=== PATIENT | male | born 1970 | race Caucasian/White ===

== ENCOUNTER 2023-01-29 19:44 | Inpatient (IN) | payer MEDICAID, OTHER ==
[~2023-01-29] VITALS: Ht 177.8 cm; Wt 111.4 kg
[2023-01-29] MEDS ORDERED: NITROGLYCERIN 2% OINT 1GM PKG TD ONE (20:15)
[2023-01-29 20:29] LABS: Basophils # (auto) 0.1 10 ^3/uL (0-0.2); Basophils % (auto) 1.2 % (0.0-2.0); Eosinophils # (auto) 0.5 10 ^3/uL (0-0.8); Eosinophils % (auto) 4.1 % (0.0-7.0); Hematocrit 51.3 % (41.0-53.0); Hemoglobin 16.6 g/dL (13.5-17.5); Lymphocytes # (auto) 2.3 10 ^3/uL (0.4-5.4); Mean Corpuscular Hemoglobin 28.3 pg (28.0-32.0); Mean Corpuscular Hgb Conc. 32.3 g/dL (32.0-36.0); Mean Corpuscular Volume 87.7 fL (80.0-100.0); Monocytes # (auto) 1.1 10 ^3/uL (0-1.3); Neutrophils # (auto) 7.1 10 ^3/uL (1.6-8.6); Neutrophils % (auto) 63.7 % (37.0-80.0); Nucleated Red Blood Cells % 0.2 %; Red Blood Cells 5.86 10^6/uL (4.5-5.90); Red Cell Distribution Width 14.3 % (11.8-14.3); White Blood Cell 11.1 10^3/uL (4.4-10.8)
[2023-01-29] MEDS ORDERED: ASPirin-EC 81 mg tab PO ONE (20:30)
[2023-01-29 20:46] LABS: Partial Thromboplastin Time 33.9 SEC (24.5-34.5); Prothrombin Time 10.5 sec (9.3-11.8)
[2023-01-29 20:51] LABS: Alanine Aminotransferase 38 U/L (7-40); Albumin 4.3 g/dL (3.2-4.8); Alkaline Phosphatase 96 U/L (46-116); Anion Gap 5 (5-15); Aspartate Aminotransferase 20 U/L (13-40); BUN/Creatinine Ratio 14.3 (10.0-20.0); Blood Urea Nitrogen 13 mg/dL (9-23); Calcium 9.3 mg/dL (8.7-10.4); Carbon Dioxide 28 mmol/L (20-30); Chloride 104 mmol/L (98-107); Glucose 92 mg/dL (74-106); Magnesium 2.1 mg/dL (1.6-2.6); Potassium 4.1 mmol/L (3.5-5.1); Sodium 137 mmol/L (136-145)
[2023-01-29 20:52] LABS: Bilirubin, Total 0.3 mg/dL (0.2-1.0); Total Protein 6.5 g/dL (5.7-8.2)
[2023-01-29 21:13] LABS: Urine Bacteria FEW /hpf (None Seen); Urine Blood Negative /uL (Negative); Urine Clarity Clear (Clear); Urine Mucus FEW (None Seen); Urine Protein, UAD TRACE (Negative); Urine Specific Gravity 1.014 (1.001-1.035); Urine Urobilinogen Normal (Negative); Urine WBC 4 /hpf (0 - 3)
[2023-01-29 21:14] LABS: Urine Color STRAW (Yellow)
[2023-01-29] MEDS ORDERED: LABETALOL HCL 200 MG TAB PO ONE (21:15)
[2023-01-29] MEDS ORDERED: IOHEXOL 350 MG/ML 100ML IJ ONE (21:31)
[2023-01-29] MEDS ORDERED: DOCUSATE SOD 100 MG CAP PO PRN (22:30)
[2023-01-29] MEDS ORDERED: hydrALAZINE HCL 20 MG/ML VL IV PRN (22:30)
[2023-01-29] MEDS ORDERED: ONDANSETRON HCL 4 MG/2 ML VIAL IV PRN (22:30)
[2023-01-29] MEDS ORDERED: ACETAMINOPHEN 325 MG TAB PO PRN (22:30)
[2023-01-29] MEDS ORDERED: HYDROcodone-ACET 5/325MG TAB PO PRN (22:30)
[2023-01-29] MEDS ORDERED: cefTRIAXone 1GM/50ML D5W 50 ML IV ONE (22:30)
[2023-01-29] MEDS: SODIUM CHLORIDE 0.9% 1,000 ML IV SCH (23:12)
[2023-01-29] MEDS ORDERED: MORPHINE SULFATE INJ 2 MG/ml SYRG IV PRN (23:30)
[2023-01-29] MEDS ORDERED: NITROGLYCERIN 0.4 MG SL TAB SL PRN (23:30)
[2023-01-29 23:56] VITALS: PULSE 97; RESP 20; O2SAT 98
[2023-01-30 02:17] LABS: Basophils # (auto) 0.1 10 ^3/uL (0-0.2); Eosinophils # (auto) 0.6 10 ^3/uL (0-0.8); Eosinophils % (auto) 6.1 % (0.0-7.0); Hematocrit 49.5 % (41.0-53.0); Hemoglobin 15.7 g/dL (13.5-17.5); Lymphocytes # (auto) 2.4 10 ^3/uL (0.4-5.4); Lymphocytes % (auto) 25.8 % (10.0-50.0); Mean Corpuscular Hemoglobin 28.5 pg (28.0-32.0); Mean Corpuscular Hgb Conc. 31.7 g/dL (32.0-36.0); Mean Corpuscular Volume 89.7 fL (80.0-100.0); Monocytes % (auto) 10.7 % (0.0-12.0); Neutrophils # (auto) 5.2 10 ^3/uL (1.6-8.6); Neutrophils % (auto) 56.4 % (37.0-80.0); Nucleated Red Blood Cells % 0.1 %; Red Blood Cells 5.52 10^6/uL (4.5-5.90); White Blood Cell 9.3 10^3/uL (4.4-10.8)
[2023-01-30 02:34] LABS: Alanine Aminotransferase 34 U/L (7-40); Albumin 3.9 g/dL (3.2-4.8); Alkaline Phosphatase 77 U/L (46-116); Anion Gap 5 (5-15); Aspartate Aminotransferase 16 U/L (13-40); BUN/Creatinine Ratio 8.6 (10.0-20.0); Bilirubin, Total 0.3 mg/dL (0.2-1.0); Blood Urea Nitrogen 8 mg/dL (9-23); Carbon Dioxide 27 mmol/L (20-30); Chloride 104 mmol/L (98-107); Glucose 112 mg/dL (74-106); Potassium 4.2 mmol/L (3.5-5.1); Sodium 136 mmol/L (136-145); Total Protein 6.1 g/dL (5.7-8.2)
[2023-01-30 07:45] VITALS: PULSE 92; RESP 27; O2SAT 95
[2023-01-30] MEDS ORDERED: IOHEXOL 350 MG/ML 100ML IJ ONE (08:32)
[2023-01-30 08:56] LABS: Amphetamine Screen, Urine Pos (NEGATIVE)
[2023-01-30 08:57] LABS: Barbiturate Scree,Urine Neg (NEGATIVE); Benzodiazephine Screen, Urine Neg (NEGATIVE); Cocaine Screen, Urine Neg (NEGATIVE)
[2023-01-30 08:58] LABS: Cannabinoid Screen, Urine Neg (NEGATIVE); Opiate Scree,Urine Neg (NEGATIVE); Phencyclidine Screen, Urine Pos (NEGATIVE)
[2023-01-30] MEDS ORDERED: LORazepam 2MG/ML-1ML VIAL IV PRN ×2 (10:15→13:15)
[2023-01-30] MEDS: LISINOPRIL 5 MG TAB PO SCH (11:44)
[2023-01-30] MEDS: CARVEDILOL 3.125 MG TAB PO SCH ×2 (11:45→21:14)
[2023-01-30] MEDS: ASPirin 81 mg TAB PO SCH (11:45)
[2023-01-30 11:59] LABS: Triglycerides 85 mg/dL (< 150)
[2023-01-30 12:00] LABS: LDL Cholesterol 101 mg/dL (< 100)
[2023-01-30 12:01] LABS: Cholesterol 141 mg/dL (< 200); HDL Cholesterol 41 mg/dL (40-59)
[2023-01-30] MEDS: NICOTINE 21MG/24 HR TOPICAL PATCH TD SCH (12:35)
[2023-01-30] MEDS: LIDOCAINE 5% TOPICAL PATCH TOP SCH (12:35)
[2023-01-30] MEDS ORDERED: cloNIDine HCL 0.1 MG TAB PO PRN (13:15)
[2023-01-30 16:00] VITALS: BP 123/76; PULSE 89; RESP 18; TEMP 98.2; O2SAT 96
[2023-01-30] MEDS: SODIUM CHLORIDE 0.9% 1,000 ML IV SCH (16:46)
[2023-01-30] MEDS ORDERED: LISI20TA56 PO (17:04)
[2023-01-30] MEDS ORDERED: ASPI-543 PO (17:04)
[2023-01-30 20:00] VITALS: PULSE 102
[2023-01-30] MEDS ORDERED: cefTRIAXone 1GM/50ML D5W 50 ML IV SCH (21:00)
[2023-01-30 22:00] VITALS: BP 134/82; PULSE 92; RESP 18; TEMP 97.9; O2SAT 96
[2023-01-30] MEDS ORDERED: ATORVASTATIN 20 MG TAB PO SCH ×2 (22:00)
[2023-01-31 05:00] VITALS: BP 95/39; PULSE 70; RESP 16; TEMP 97.7; O2SAT 100
[2023-01-31 06:21] LABS: Basophils # (auto) 0.1 10 ^3/uL (0-0.2); Basophils % (auto) 1.2 % (0.0-2.0); Eosinophils # (auto) 0.6 10 ^3/uL (0-0.8); Eosinophils % (auto) 6.4 % (0.0-7.0); Hematocrit 51.8 % (41.0-53.0); Hemoglobin 16.7 g/dL (13.5-17.5); Lymphocytes # (auto) 2.8 10 ^3/uL (0.4-5.4); Lymphocytes % (auto) 31.1 % (10.0-50.0); Mean Corpuscular Hemoglobin 28.4 pg (28.0-32.0); Mean Corpuscular Hgb Conc. 32.2 g/dL (32.0-36.0); Mean Corpuscular Volume 88.3 fL (80.0-100.0); Monocytes # (auto) 1.1 10 ^3/uL (0-1.3); Monocytes % (auto) 12.1 % (0.0-12.0); Neutrophils # (auto) 4.4 10 ^3/uL (1.6-8.6); Neutrophils % (auto) 49.2 % (37.0-80.0); Nucleated Red Blood Cells % 0.1 %; Red Blood Cells 5.87 10^6/uL (4.5-5.90); Red Cell Distribution Width 14.8 % (11.8-14.3); White Blood Cell 8.9 10^3/uL (4.4-10.8)
[2023-01-31 06:26] LABS: Anion Gap 5 (5-15); Carbon Dioxide 30 mmol/L (20-30); Chloride 104 mmol/L (98-107); Potassium 4.6 mmol/L (3.5-5.1); Sodium 139 mmol/L (136-145)
[2023-01-31 06:27] LABS: Calcium 9.6 mg/dL (8.5-10.1)
[2023-01-31 06:32] LABS: BUN/Creatinine Ratio 11.3 (10.0-20.0); Blood Urea Nitrogen 12 mg/dL (9-23); Glucose 99 mg/dL (74-106)
[2023-01-31 08:00] VITALS: PULSE 80
[2023-01-31] MEDS ORDERED: ATOR20TA50 PO (08:46)
[2023-01-31] MEDS ORDERED: LIDO5DIS21 TOP (08:46)
[2023-01-31] MEDS ORDERED: CEPH500C PO (08:47)
[2023-01-31 09:00] VITALS: BP 127/99; PULSE 88; RESP 17; TEMP 97.7; O2SAT 98
[2023-01-31] MEDS: CARVEDILOL 3.125 MG TAB PO SCH (09:48)
[2023-01-31] MEDS: LISINOPRIL 5 MG TAB PO SCH (09:48)
[2023-01-31] MEDS: ASPirin 81 mg TAB PO SCH (09:48)
[2023-01-31] MEDS: NICOTINE 21MG/24 HR TOPICAL PATCH TD SCH (09:49)
[2023-01-31] MEDS: LIDOCAINE 5% TOPICAL PATCH TOP SCH (09:49)
[2023-01-31] MEDS ORDERED: ENOXAPARIN SOD 40 MG/0.4 ML SYRINGE SC SCH (10:00)
== END 2023-01-31 09:35 | disposition left against medical advice (07) | DRG 203 ==
LOC: ER 19:44 → TELE 23:39 → TELE-CENTR 01-30 13:38
PROVIDERS: ADMIT Internal Medicine; ATTEND Internal Medicine
DX: M94.0 Chondrocostal junction syndrome [Tietze] (principal); E66.9 Obesity, unspecified; I16.0 Hypertensive urgency; J45.909 Unspecified asthma, uncomplicated; N39.0 Urinary tract infection, site not specified; Z53.29 Procedure and treatment not carried out because of patient's decision for other reasons; F17.210 Nicotine dependence, cigarettes, uncomplicated; T43.625A Adverse effect of amphetamines, initial encounter; Z68.35 Body mass index [BMI] 35.0-35.9, adult; Z79.82 Long term (current) use of aspirin; Z82.49 Family history of ischemic heart disease and other diseases of the circulatory system; Z86.718 Personal history of other venous thrombosis and embolism; Z86.73 Personal history of transient ischemic attack (TIA), and cerebral infarction without residual deficits; Y92.89 Other specified places as the place of occurrence of the external cause; Z71.6 Tobacco abuse counseling
CPT/HCPCS: 36415; 70450; 70496; 70551; 71045; 71275; 80048; 80053; 80061; 80307; 81001; 82607; 83690; 83735; 83880; 84443; 84484; 85025; 85379; 85610; 85730; 93005; 93970; 95819; 96365; G0378; J0696

== ENCOUNTER 2023-08-05 07:58 | Emergency (ER) | payer MEDICAID ==
[~2023-08-05] VITALS: Ht 177.8 cm; Wt 100.0 kg
[~2023-08-05 07:58] MED LIST: ASPI-543 PO; ATOR20TA50 PO; CEPH500C PO; LIDO5DIS21 TOP; LISI20TA56 PO
[2023-08-05] MEDS: methylPREDNISolone SOD SUCC 125 MG/2 ML VL IV ONE (08:26)
[2023-08-05] MEDS: ALBUTEROL SULF 2.5 MG/0.5ML(0.5%) NEB SOLN NEB ONE (08:27)
[2023-08-05 08:30] VITALS: PULSE 71; RESP 12; O2SAT 91
[2023-08-05 08:31] VITALS: BP 149/88; PULSE 103; RESP 19; O2SAT 100
[2023-08-05 09:02] LABS: Basophils # (auto) 0.1 10 ^3/uL (0-0.2); Basophils % (auto) 0.6 % (0.0-2.0); Eosinophils # (auto) 0.4 10 ^3/uL (0-0.8); Eosinophils % (auto) 3.1 % (0.0-7.0); Hemoglobin 15.9 g/dL (13.5-17.5); Lymphocytes # (auto) 1.3 10 ^3/uL (0.4-5.4); Lymphocytes % (auto) 10.3 % (10.0-50.0); Mean Corpuscular Hemoglobin 28.5 pg (28.0-32.0); Mean Corpuscular Volume 86.2 fL (80.0-100.0); Monocytes % (auto) 8.2 % (0.0-12.0); Neutrophils # (auto) 9.8 10 ^3/uL (1.6-8.6); Neutrophils % (auto) 77.8 % (37.0-80.0); Nucleated Red Blood Cells % 0.1 %; Red Blood Cells 5.57 10^6/uL (4.5-5.90); Red Cell Distribution Width 16.9 % (11.8-14.3); White Blood Cell 12.6 10^3/uL (4.4-10.8)
[2023-08-05 09:17] LABS: Chloride 111 mmol/L (98-107); Sodium 141 mmol/L (136-145)
[2023-08-05 09:18] LABS: Anion Gap 3 (5-15); Carbon Dioxide 27 mmol/L (20-30)
[2023-08-05 09:19] LABS: Calcium 9.4 mg/dL (8.5-10.1)
[2023-08-05 09:24] LABS: BUN/Creatinine Ratio 17.2 (10.0-20.0); Blood Urea Nitrogen 16 mg/dL (9-23); Glucose 134 mg/dL (74-106)
[2023-08-05] MEDS ORDERED: ALBUTEROL SULF 2.5 MG/0.5ML(0.5%) NEB SOLN NEB PRN (09:45)
[2023-08-05] MEDS ORDERED: ACETAMINOPHEN 325 MG TAB PO PRN (09:45)
[2023-08-05] MEDS ORDERED: IPRATROPIUM BROM 0.5 MG/2.5ML INH SOL NEB PRN (09:45)
[2023-08-05] MEDS ORDERED: ONDANSETRON HCL 4 MG/2 ML VIAL IV PRN (09:45)
[2023-08-05] MEDS ORDERED: ASPirin 81 mg TAB PO SCH (10:00)
[2023-08-05] MEDS ORDERED: methylPREDNISolone SOD SUCC 40 MG/ML VL IV SCH (10:00)
[2023-08-05] MEDS ORDERED: LISINOPRIL 20 MG TAB PO SCH (10:00)
[2023-08-05] MEDS ORDERED: ATORVASTATIN 20 MG TAB PO SCH (22:00)
== END 2023-08-05 09:42 | disposition left against medical advice (07) ==
LOC: ER 07:58 → EDBD 07:58 → ER 09:42
DX: J44.1 Chronic obstructive pulmonary disease with (acute) exacerbation (principal); R06.03 Acute respiratory distress; I10 Essential (primary) hypertension; J45.909 Unspecified asthma, uncomplicated; Z86.73 Personal history of transient ischemic attack (TIA), and cerebral infarction without residual deficits; Z98.890 Other specified postprocedural states; Z87.891 Personal history of nicotine dependence
CPT/HCPCS: 36415; 71045; 80048; 84484; 85025; 85379; 94640; 96374; 99284; J2919

== ENCOUNTER 2024-01-31 18:33 | Inpatient (IN) | payer MEDICAID, OTHER ==
[~2024-01-31] VITALS: Ht 177.8 cm; Wt 94.3 kg
[2024-01-31] MEDS: SUCCINYLCHOLINE CHLORIDE 20 MG/ML 10ML VIAL IV ONE ×2 (18:30→18:38)
[2024-01-31] MEDS: ETOMIDATE (2MG/ML) 20ML VIAL IV ONE ×2 (18:30→18:38)
[2024-01-31] MEDS: MAGNESIUM SULFATE 1GM/100ML 200 ML IV ONE (18:31)
[2024-01-31] MEDS: methylPREDNISolone SOD SUCC 125 MG/2 ML VL IV ONE (18:33)
[2024-01-31] MEDS: methylPREDNISolone SOD SUCC 125 MG/2 ML VL ONE (18:34)
[2024-01-31] MEDS: MIDAZOLAM DRIP 50 mg/50mL 50 ML IV ONE (18:42)
[2024-01-31] MEDS: PROPOFOL 100 ML IV ONE (18:42)
[2024-01-31] MEDS: ALBUTEROL SULF 2.5 MG/0.5ML(0.5%) NEB SOLN HHN ONE (18:50)
[2024-01-31] MEDS: IPRATROPIUM BROM 0.5 MG/2.5ML INH SOL HHN ONE (18:50)
[2024-01-31] MEDS: PROPOFOL 100 ML IV SCH (19:00)
[2024-01-31] MEDS: MIDAZOLAM DRIP 50 mg/50mL 50 ML IV SCH (19:00)
[2024-01-31] MEDS: fentaNYL Drip 2500mCg/250mlNS 250 ML IV SCH (19:15)
[2024-01-31 19:30] VITALS: PULSE 148; RESP 36; O2SAT 96
--- NOTE | 2024-01-31 19:38 | ED.PDOC ---
History of Present Illness HPI Comments 53 y/o M, with a Hx of asthma, is BIBA for c/o shortness of breath and wheezing, today. Per EMS report, patient called, endorsing on sudden and unprovoked asthma exacerbation onset unlike any he has had in the past, with no relief or improvement with at-home breathing Tx use. Patient was found on scene in re spiratory distress, with a SpO2 of 58%RA, blood pressure of 222/101, and tachycardic by EMS staff. En route, patient was placed on a NRB and then given a breathing Tx after initial failed attempt to place him on CPAP device, with SpO2 improving to 99%. Upon arrival to ED, patient is stated to still remain in respiratory distress by EMS staff and unable to provide additional information regarding his symptoms. At time of assessment, patient repeatedly stated "I cannot breathe" and unable to follow command. Patient has no reported chest pain, phlegm production, fever, nausea, vomiting, or other associated symptoms or modifies at this time. Chief Complaint: Shortness of Breath Time Seen by MD: 18:33 Primary Care Provider: FRED Reviewed Notes: Nurses Notes, Mulling Machine Operator Notes, Medications, Allergies Allergies: Coded Allergies: UNOBTAINABLE (Unverified , 01/31/24) SEVERLY SOB Information Source: Patient, Emergency Med Personnel Mode of Arrival: EMS Severity: Moderate Timing: Hours Duration: Since onset Prehospital treatment: 12 Lead EKG, Breathing Tx, Physical Meteorologist, C-Pap, Oxygen (NRB) Past Medical History PAST MEDICAL HISTORY: Asthma Surgical History: Unknown, Unobtainable Family History Family History: Unknown, Unobtainable Social History Smoker: Unknown, Unobtainable Alcohol: Unknown, Unobtainable Drugs: Unknown, Unobtainable Lives In: Home Constitutional: denies: chills, diaphoresis, fatigue, fever, malaise, sweats, weakness, others EENTM: denies: blurred vision, double vision, ear bleeding, ear discharge, ear drainage, ear pain, ear ringing, eye pain, eye redness, hearing loss, mouth pain, mouth swelling, nasal discharge, nose bleeding, nose congestion, nose pain, photophobia, tearing, throat pain, throat swelling, voice changes, others Respiratory: reports: shortness of breath, wheezing; denies: cough, hemoptysis, orthopnea, SOB at rest, SOB with excertion, stridor, others Cardiovascular: denies: chest pain, dizzy spells, diaphoresis, Dyspnea on exertion, edema, irregular heart beat, left arm pain, lightheadedness, palpitations, PND, syncope, others Gastrointestinal: denies: abdomen distended, abdominal pain, blood streaked bowels, constipated, diarrhea, dysphagia, difficulty swallowing, hematemesis, melena, nausea, poor appetite, poor fluid intake, rectal bleeding, rectal pain, vomiting, others Genitourinary: denies: burning, dysuria, flank pain, frequency, hematuria, incontinence, penile discharge, penile sore, pain, testicle pain, testicle swelling, urgency, others Neurological: denies: dizziness, fainting, headache, left sided numbness, left sided weakness, numbness, paresthesia, pre-existing deficit, right sided numbness, right sided weakness, seizure, speech problems, tingling, tremors, weakness, others Musculoskeletal: denies: back pain, gout, joint pain, joint swelling, muscle pain, muscle stiffness, neck pain, others Integumetry: denies: bruises, change in color, change in hair/nails, dryness, laceration, lesions, lumps, rash, wounds, others Allergic/Immunocompromised: denies: Difficulty Healing, Frequent Infections, Hives, Itching, others Hematologic/Lymphatic: denies: anemia, blood clots, easy bleeding, easy bruising, swollen glands, others Endocrine: denies: excessive hunger, excessive sweating, excessive thirst, excessive urination, flushing, intolerance to cold, intolerance to heat, unexplained weight gain, unexplained weight loss, others Psychiatric: denies: anxiety, bipolar disorder, depression, hopeless, panic disorder, schizophrenia, sleepless, suicidal, others All Other Systems: Reviewed and Negative Physical Exam General Appearance: Severe Distress HEENT: Normal ENT Inspection, Pharynx Normal, TMs Normal Neck: Full Range of Motion, Non-Tender, Normal, Normal Inspection Respiratory: Accessory Muscle Use, Chest Non-Tender, Decreased Breath Sounds, Respiratory Distress, Wheezing Cardiovascular: No Edema, No JVD, No Murmur, No Gallop, Tachycardia Breast Exam: Deferred Gastrointestinal: No Organomegaly, Non Tender, No Pulsatile Mass, Normal Bowel Sounds, Soft Genitalia: Deferred Pelvic: Deferred Rectal: Deferred Extremities: No calf tenderness, Normal capillary refill, No pedal edema Musculoskeletal : Apperance: Normal Neurologic: Alert, actuarial science teacher II-XII nml as Tested, Motor Weakness, Normal Affect, Normal Mood, No Sensory Deficits Cerebellar Function: Normal Reflexes: Normal Skin: Dry, Normal Color, Warm Lymphatic: No Adenopathy Was a procedure done? Was a procedure done?: Yes Sedation Sedation?: Yes Informed consent obtained: Yes Sedation start time: 18:33 Sedation end time: 18:48 Sedation total time: 15x minutes Intubation Indication: Respiratory Insufficiency Prep: Preoxygenation Pretreated with: Other (solumedrol iv push) Medicated with: Succinylcholine (100mg), Other (20mg Etomidate ) Intubation Approach: Orotracheal (7.5) Intubation size: cm (24cm at lip) Informed consent obtained: Yes Risks/benefits/alt described: Yes Differential Dx Considerations may include: asthma exacerbation, PNA, pleural effusion, bronchitis, URI, PE X-Ray, Labs, Meds, VS Vital Signs Date Time Temp Pulse Resp B/P (MAP) Pulse Ox O2 Delivery O2 Flow Rate FiO2 01/31/24 20:58 111/59 01/31/24 19:15 198/124 01/31/24 19:00 195/127 01/31/24 19:00 195/127 01/31/24 18:57 143 01/31/24 18:33 151 45 222/107 (145) 64 Lab Test 01/31/24 19:48 01/31/24 19:36 Range/Units Blood Gas Specimen Type Arterial Blood Gas Sample Site Left radial Blood Gas Patient Temperature 37.0 Arterial Blood Date Drawn [id number] Arterial Blood pH 7.152 *L 7.350-7.450 Arterial Blood Partial Pressure CO2 75.0 *H 35.0-48.0 mmHg Arterial Blood Partial Pressure O2 101.3 83.0-108.0 mmHg Arterial Blood HCO3 25.7 21.0-28.0 mmol/L Arterial Blood Oxygen Saturation 96.4 94.0-98.0 % Arterial Blood Base Excess -5.2 L -2.0-3.0 mmol/L Arterial Blood Oxyhemoglobin 94.3 94.0-98.0 % Arterial Blood Carboxyhemoglobin 1.7 H 0.5-1.5 % Arterial Blood Methemoglobin 0.5 0.0-1.5 % Davide Test Modified Blood Gas Total Hemoglobin 15.90 13.5-17.5 g/dL Blood Gas Set Respiration Rate 22.0 Blood Gas Modality Vent - ac FiO2 % 60.0 Blood Gas Tidal Volume 450.0 Blood Gas PEEP or CPAP 5.0 Blood Gas Critical Value Read Back Yes Blood Gas Notified Whom jesica [place] md Blood Gas Notified Time [id number] Blood Gas Notified By randell Wolff rrt White Blood Count 21.3 H 4.4-10.8 10^3/uL Red Blood Count 5.41 4.5-5.90 10^6/uL Hemoglobin 15.9 13.5-17.5 g/dL Hematocrit 48.3 41.0-53.0 % Mean Corpuscular Volume 89.4 80.0-100.0 fL Mean Corpuscular Hemoglobin 29.3 28.0-32.0 pg Mean Corpuscular Hemoglobin Concent 32.8 32.0-36.0 g/dL Red Cell Distribution Width 14.7 H 11.8-14.3 % Platelet Count 256 140-450 10^3/uL Mean Platelet Volume 8.9 6.9-10.8 fL Neutrophils (%) (Auto) 91.3 H 37.0-80.0 % Lymphocytes (%) (Auto) 3.1 L 10.0-50.0 % Monocytes (%) (Auto) 5.0 0.0-12.0 % Eosinophils (%) (Auto) 0.4 0.0-7.0 % Basophils (%) (Auto) 0.2 0.0-2.0 % Neutrophils # (Auto) 19.5 H 1.6-8.6 10 ^3/uL Lymphocytes # (Auto) 0.7 0.4-5.4 10 ^3/uL Monocytes # (Auto) 1.1 0-1.3 10 ^3/uL Eosinophils # (Auto) 0.1 0-0.8 10 ^3/uL Basophils # (Auto) 0 0-0.2 10 ^3/uL Nucleated Red Blood Cells 0.0 % B-Type Natriuretic Peptide Pending Current Medications Medications (Trade) Dose Ordered Sig/Compa Route Start Time Stop Time Status Last Admin Methylprednisolone Sodium Succinate (Solu Medrol) 125 mg ONCE ONCE IV 01/31/24 19:00 01/31/24 19:01 DC 01/31/24 18:33 Ipratropium [place] (Atrovent Medneb) 1 mg ONCE ONCE N 01/31/24 19:00 01/31/24 19:01 DC 01/31/24 18:50 Albuterol (Ventolin Medneb) 20 mg ONCE ONCE HHN 01/31/24 19:00 01/31/24 19:01 DC 01/31/24 18:50 Magnesium Sulfate/ Dextrose 100 ml @ 100 mls/hr Q1H IV 01/31/24 19:00 01/31/24 20:59 DC 01/31/24 20:41 Etomidate 20 mg ONCE ONCE IV 01/31/24 19:00 01/31/24 19:01 DC 01/31/24 18:38 Succinylcholine Chloride (Quelicin) 100 mg ONCE ONCE IV 01/31/24 19:00 01/31/24 19:01 DC 01/31/24 18:38 Propofol 100 ml @ 2.73 mls/hr Q24H IV 01/31/24 19:15 01/31/24 19:00 Midazolam HCl 50 ml @ 1 mls/hr Q24H IV 01/31/24 19:15 01/31/24 20:58 Fentanyl Citrate 250 ml @ 2.5 mls/hr Q24H IV 01/31/24 19:30 01/31/24 19:15 Acetaminophen (Ofirmev) 1,000 mg [id number] PRN IV 01/31/24 20:15 01/31/24 20:15 DC 01/31/24 20:10 The chest x-ray shows:IMPRESSION: Enteric tube is not well-visualized with the tip possibly slightly below the GE junction and the side port above the GE junction. Recommend advancing about 10 cm for more optimal positioning. Endotracheal tube is in satisfactory position. Mild pulmonary vascular congestion. The patient was given Solu-Medrol 125 mg IV push here in the emergency department's We initially attempted to place the patient on a BiPAP but the patient became somewhat hypoxic with significant accessory muscle use so we did go ahead and intubate the patient. The patient received an in-line treatment of albuterol and Atrovent The patient was placed on magnesium for the acute exacerbation of asthma follow ing intubation, the patient was placed on propofol and then Versed and fentanyl for sedation The patient also received acetaminophen 1000 mg IV piggyback Blood cultures x2 is being drawn The lactic acid level is pending The patient's CBC shows an elevated white blood cell count is 21.3 The rest of the CBC is within normal limits The chemistry panel is within normal limits The 1st ABG was done with a pH of 7.15/PO2 of 75 and a PO2 of 101.3 This is on 60% FiO2 so we are increase in the volume. At this time, the patient is being admitted to the ICU Critical care involved bedside management as well as interpretation of labs. We have been consulting with the field service tech Decision making also was involved and interpretation of the imaging. We will continue to monitor the patient's condition and the patient will be admitted to the ICU. At this time the admitting physician has arrived and is going to be placing a central line. Images Reviewed?: Images reviewed and evaluated by me Time of 1ST Reevaluation: 19:03 Reevaluation 1ST: Unchanged Patient Education/Counseling: Other (patient is intubated) Family Education/Counseling: No Family Present Departure 1 Departure Time of Disposition: 21:14 Impression: Primary Impression: Acute respiratory failure Qualified Codes: J96.01 - Acute respiratory failure with hypoxia Additional Impression: Pulmonary vascular congestion Disposition: ADMITTED INPATIENT Admit to: ICU Condition: Critical Critical Care Note Critical Care Time?: Yes (55 min-critical care time only) Stability Stability form required: Yes Unstable for transfer: ICU, CCU, PCU, GAVIN (Intensive VS monitoring), ED Physician Assesment (Clinical assesment) Heart Score Heart Score: Heart Score Response (Comments) Value History Moderate Suspicious 1 EKG N/A 0 Age 45-64 1 Risk Factors 1 or 2 risk factors 1 Troponin N/A 0 Total 3 I personally scribed for URBAN GRANDE MD ([email or web address]) on 01/31/24 at 19:38. Electronically submitted by Javy Guerra ([email or web address]). I personally scribed for URBAN GRANDE MD ([email or web address]) on 01/31/24 at 19:39. El ectronically submitted by Javy Geurra ([email or web address]). I personally scribed for URBAN GRANDE MD ([email or web address]) on 01/31/24 at 19:40. Electronically submitted by Javy Guerra ([email or web address]). URBAN GRANDE MD Jan 31, 2024 19:38
[2024-01-31 19:46] LABS: Basophils # (auto) 0 10 ^3/uL (0-0.2); Basophils % (auto) 0.2 % (0.0-2.0); Eosinophils # (auto) 0.1 10 ^3/uL (0-0.8); Eosinophils % (auto) 0.4 % (0.0-7.0); Hematocrit 48.3 % (41.0-53.0); Hemoglobin 15.9 g/dL (13.5-17.5); Lymphocytes # (auto) 0.7 10 ^3/uL (0.4-5.4); Lymphocytes % (auto) 3.1 % (10.0-50.0); Mean Corpuscular Hemoglobin 29.3 pg (28.0-32.0); Mean Corpuscular Hgb Conc. 32.8 g/dL (32.0-36.0); Mean Corpuscular Volume 89.4 fL (80.0-100.0); Monocytes # (auto) 1.1 10 ^3/uL (0-1.3); Neutrophils # (auto) 19.5 10 ^3/uL (1.6-8.6); Neutrophils % (auto) 91.3 % (37.0-80.0); Platelet Count (auto) 256 10^3/uL (140-450); Red Blood Cells 5.41 10^6/uL (4.5-5.90); Red Cell Distribution Width 14.7 % (11.8-14.3); White Blood Cell 21.3 10^3/uL (4.4-10.8)
[2024-01-31] MEDS: fentaNYL Drip 2500mCg/250mlNS 250 ML IV ONE (19:51)
--- NOTE | 2024-01-31 19:55 | DVH ---
CHEST RADIOGRAPH Indication: sob Technique: Single frontal view of the chest was obtained Comparison: None FINDINGS: Lines and Tubes: Endotracheal tube terminates about 5.6 cm above the augusto. The enteric tube is not well-visualized with the tip possibly slightly below the GE junction. Lungs: No focal consolidation. Mild diffuse interstitial prominence. Pleura: No effusion. No pneumothorax. Cardiomediastinal contours: Mild cardiomegaly Bones: No acute osseous abnormality. IMPRESSION: Enteric tube is not well-visualized with the tip possibly slightly below the GE junction and the side port above the GE junction. Recommend advancing about 10 cm for more optimal positioning. Endotracheal tube is in satisfactory position. Mild pulmonary vascular congestion.
[2024-01-31] MEDS ORDERED: ACETAMINOPHEN IV 1000 MG/100ML (10MG/ML) IV PRN (20:00)
[2024-01-31] MEDS: NOREPINEPHRINE 8 MG/250ML KIT 250 ML IV SCH (20:00)
[2024-01-31] MEDS: ACETAMINOPHEN IV 1000 MG/100ML (10MG/ML) IV PRN (20:10)
[2024-01-31] MEDS: FUROSEMIDE 40 MG/4 ML VIAL IV ONE (20:30)
[2024-01-31] MEDS: MAGNESIUM SULFATE 1GM/100ML 100 ML IV SCH (20:41)
[2024-01-31 20:59] LABS: Base Excess -5.2 mmol/L (-2.0-3.0)
[2024-01-31] MEDS ORDERED: NITROGLYCERIN 0.4 MG SL TAB SL PRN (21:00)
[2024-01-31] MEDS ORDERED: MORPHINE SULFATE INJ 2 MG/ml SYRG IV PRN (21:00)
--- NOTE | 2024-01-31 21:05 | DVHNC2 ---
[address] RESIDENT 01/31/24 2105: Procedure - INTERNAL JUGULAR CENTRAL LINE (Central Line) PLACEMENT PROCEDURE NOTE: Consent: No. The procedure was emergent, the patient was unable to provide consent, and a designee was not immediately available. The patient was intubated and ventilated. 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 Skin preparation completely dry: Yes IJ Line Location: Right IJ PROCEDURE SUMMARY: The [facility] Central Line Insertion Practices form was completed by an independent healthcare worker starting with the first handwash prior to starting sterile technique. A time out was performed. My hands were washed immediately prior to the procedure. I wore a surgical cap, mask with protective eyewear, full gown and sterile gloves throughout the procedure. The patient was placed in Trendelenburg position. RIGHT Neck region was prepped using chlorhexidine scrub and draped in sterile fashion using a full drape and sterile probe cover and sterile gel employed. The medial and lateral heads of the sternocleidomastoid muscle were identified as was the carotid pulse. The Internal Jugular vein was identified using the ultrasound. Anesthesia was achieved over the vein using 1% lidocaine. Using real-time out of plane guidance, the introducer needle was inserted into the Internal Jugular vein under direct ultrasound visualization. Venous blood was withdrawn. The syringe was removed and a guidewire was advanced into the introducer needle. The guidewire was visualized in the Internal Jugular Vein by ultrasound in both short and long axis. A small incision was made at the skin surface with a scalpel and the introducer needle was exchanged for a dilator over the guidewire. After appropriate dilation was obtained, the dilator was exchanged over the wire for the central venous catheter. The wire was removed and the catheter was sutured to skin. A sterile SorbaView shield was placed over the catheter at the insertion site with date and time of placement. The patient tolerated the procedure without any hemodynamic compromise. At time of procedure completion, all ports aspirated and flushed properly. Checked pleural slide with bedside ultrasound without signs of pneumothorax. Post-procedure chest x-ray is pending at this time. Estimated blood loss is 10 ml (approx). Performed by Guillermo Maddox MD at bedside. Follow up CXR bedside to confirmed a safe procedure. Supervised by the attending Dr. Reeves & Dr. Dave. LLOYD DAVE MD 02/01/24 0821: Date of Service: Jan 31, 2024 Billing Provider: LLOYD DAVE MD Common Visit Codes: PROCEDURE ONLY Procedure Codes: 17159-RFGCIJ NON-TUNNEL CV CATH GUILLERMO MADDOX Jan 31, 2024 21:05 LLOYD DAVE MD Feb 01, 2024 08:21
--- NOTE | 2024-01-31 21:05 | DVHHPRES ---
History of Present Illness Resident Creating Document: ROSY MADDOX RESIDENT History of Present Illness Mr. Farrell, 53-year-old male with a history of asthma was brought in by ambulance for shortness of breath and wheezing. He experienced a sudden, severe asthma exacerbation that did not improve with at-home treatments. EMS found him in respiratory distress with an SpO2 of 58% on room air, high blood pressure, and tachycardia. He was given oxygen and a breathing treatment, which improved his SpO2 to 99%. Upon arrival at the ED, he remained in respiratory distress, unable to provide additional information, and repeatedly stated, "I cannot breathe." He has no chest pain, phlegm, fever, nausea, or vomiting. Despite restrictive treatment patient could not maintain spontaneous breathing patient was intubated and admitted to the ICU for further evaluation. Peripheral access was not admitted so right-sided central IJ line was placed. Although could not take detailed history as patient was intubated and sedated by the time I started taking care of the patient. Pulmonary: Asthma Past Surgical History: None Family History: None Family History Limited Past Social History Limited social and personal history. Review of Systems Constitutional: No: Fever, Chills, Sweats, Weakness, Malaise, Other Eyes: No: Pain, Vision change, Conjunctivae inflammation, Eyelid inflammation, Other, Redness ENT: No: Ear pain, Ear discharge, Nose pain, Nose discharge, Nose congestion, Mouth pain, Mouth swelling, Throat pain, Throat swelling, Other Respiratory: Cough, Dry, Shortness of breath, SOB with excertion, Wheezing, Wheezing; No: Hemoptysis, Pleuritic Pain, Sputum, Other Cardiovascular: No: Chest Pain, Palpitations, Orthopnea, Paroxysmal Noc. Dyspnea, Edema, Lt Headedness, Other Gastrointestinal: No: Nausea, Vomiting, Abdominal Pain, Diarrhea, Constipation, Melena, Hematochezia, Other Genitourinary: No Dysuria, No Frequency, No Incontinence, No Hematuria, No Retention, No Other Musculoskeletal: No: other, neck pain, shoulder pain, arm pain, back pain, hand pain, leg pain, foot pain Skin: No: Rash, Lesions, Jaundice, Bruising, Other Neurological: No: Weakness, Numbness, Incoordination, Change in speech, Confusion, Seizures, Other Other As per ED providers. By the time I saw the patient patient was already intubated. Allergies: Coded Allergies: NO KNOWN ALLERGIES (Unverified , 01/29/23) UNOBTAINABLE (Unverified , 01/31/24) SEVERLY SOB Medications Current Medications Medications Dose Ordered Sig/Compa Route Start Time Stop Time Status Last Admin Dose Admin Magnesium Sulfate/ Dextrose 100 ml @ 100 mls/hr Q1H IV 01/31/24 19:00 01/31/24 20:59 01/31/24 20:41 100 MLS/HR Propofol 100 ml @ 2.73 mls/hr Q24H IV 01/31/24 19:15 01/31/24 19:00 2.73 MLS/HR Midazolam HCl 50 ml @ 1 mls/hr Q24H IV 01/31/24 19:15 01/31/24 19:00 1 MLS/HR Fentanyl Citrate 250 ml @ 2.5 mls/hr Q24H IV 01/31/24 19:30 01/31/24 19:15 2.5 MLS/HR Acetaminophen 1,000 mg [id number] PRN IV 01/31/24 20:00 01/31/24 20:01 Cancel Exam Vital Signs Vital Signs Date Time Temp Pulse Resp B/P (MAP) Pulse Ox O2 Delivery O2 Flow Rate FiO2 01/31/24 19:15 198/124 01/31/24 18:57 143 01/31/24 18:33 45 64 General Appearance: Other (RASS scale of -1) HEENT: Atraumatic, PERRLA, EOMI, Mucous membr. moist/pink, Other (Intubated and sedated) Respiratory: Clear to auscultation, Normal air movement, Other (Bilateral air entry equal basal rales/crackles) Cardiovascular: Regular rate, Normal S1, Normal S2, No murmurs Abdominal: Normal bowel sounds, Soft, No tenderness, No hepatospenomegaly Extremities: No clubbing, No cyanosis, No edema, Normal pulses, Other (Well- perfused) Skin: No rashes, No breakdown, No significant lesion Neuro: Other (Can not be evaluated at patient is sedated and intubated.) Psych/Mental Status: Other (Can not evaluate) Labs/Xrays Labs Test 01/31/24 19:48 01/31/24 19:36 Range/Units Blood Gas Specimen Type Arterial Blood Gas Sample Site Left radial Blood Gas Patient Temperature 37.0 Arterial Blood Date Drawn [id number] Arterial Blood pH 7.152 *L 7.350-7.450 Arterial Blood Partial Pressure CO2 75.0 *H 35.0-48.0 mmHg Arterial Blood Partial Pressure O2 101.3 83.0-108.0 mmHg Arterial Blood HCO3 25.7 21.0-28.0 mmol/L Arterial Blood Oxygen Saturation 96.4 94.0-98.0 % Arterial Blood Base Excess -5.2 L -2.0-3.0 mmol/L Arterial Blood Oxyhemoglobin 94.3 94.0-98.0 % Arterial Blood Carboxyhemoglobin 1.7 H 0.5-1.5 % Arterial Blood Methemoglobin 0.5 0.0-1.5 % Davide Test Modified Blood Gas Total Hemoglobin 15.90 13.5-17.5 g/dL Blood Gas Set Respiration Rate 22.0 Blood Gas Modality Vent - ac FiO2 % 60.0 Blood Gas Tidal Volume 450.0 Blood Gas PEEP or CPAP 5.0 Blood Gas Critical Value Read Back Yes Blood Gas Notified Whom jesica Toscano md Blood Gas Notified Time [id number] Blood Gas Notified By randell Wolff rrt White Blood Count 21.3 H 4.4-10.8 10^3/uL Red Blood Count 5.41 4.5-5.90 10^6/uL Hemoglobin 15.9 13.5-17.5 g/dL Hematocrit 48.3 41.0-53.0 % Mean Corpuscular Volume 89.4 80.0-100.0 fL Mean Corpuscular Hemoglobin 29.3 28.0-32.0 pg Mean Corpuscular Hemoglobin Concent 32.8 32.0-36.0 g/dL Red Cell Distribution Width 14.7 H 11.8-14.3 % Platelet Count 256 140-450 10^3/uL Mean Platelet Volume 8.9 6.9-10.8 fL Neutrophils (%) (Auto) 91.3 H 37.0-80.0 % Lymphocytes (%) (Auto) 3.1 L 10.0-50.0 % Monocytes (%) (Auto) 5.0 0.0-12.0 % Eosinophils (%) (Auto) 0.4 0.0-7.0 % Basophils (%) (Auto) 0.2 0.0-2.0 % Neutrophils # (Auto) 19.5 H 1.6-8.6 10 ^3/uL Lymphocytes # (Auto) 0.7 0.4-5.4 10 ^3/uL Monocytes # (Auto) 1.1 0-1.3 10 ^3/uL Eosinophils # (Auto) 0.1 0-0.8 10 ^3/uL Basophils # (Auto) 0 0-0.2 10 ^3/uL Nucleated Red Blood Cells 0.0 % [place] [address] Ph: [phone] DIAGNOSTIC IMAGING Diagnostic Imaging Report : [id number] Signed PATIENT: MIRI FARRELL ACCT: [id number] UNIT: [id number] : 1970 LOC: OVERFLOW ROOM / BED: 1019-ER / A AGE / SEX: 53 / M ADM STATUS: ADM IN SERVICE 2246 ORDERING PHYSICIAN: ROSY MADDOX PROCEDURE(s): CXRP - CHEST PORTABLE REASON: post IJ line. ORDER NUMBER(s): [id number], ACCESSION NUMBER(s): [id number] CHEST RADIOGRAPH Indication: post IJ line. Technique: Single frontal view of the chest was obtained Comparison: XY CHEST PORTABLE on DOS: 01/31/24 Findings/ IMPRESSION: Endotracheal tube projects 4 cm superior to the augusto. Right IJ CVC projects terminating in the SVC. No active cardiopulmonary disease. ATED BY: SADI COWAN DO DICTATED DATE/TIME: 01/31/242316 SIGNED BY: SADI COWAN DO SIGNED DATE/TIME: 01/31/242316 CC: [address] [address] Ph: [phone] DIAGNOSTIC IMAGING Diagnostic Imaging Report : [id number] Signed PATIENT: MIRI FARRELL ACCT: [id number] UNIT: [id number] : 1970 LOC: ER ROOM / BED: / AGE / SEX: 53 / M ADM STATUS: REG ER SERVICE 1850 ORDERING PHYSICIAN: URBAN TOSCANO MD PROCEDURE(s): CXRP - CHEST PORTABLE REASON: sob ORDER NUMBER(s): [id number], ACCESSION NUMBER(s): [id number] CHEST RADIOGRAPH Indication: sob Technique: Single frontal view of the chest was obtained Comparison: None FINDINGS: Lines and Tubes: Endotracheal tube terminates about 5.6 cm above the augusto. The enteric tube is not well-visualized with the tip possibly slightly below the GE junction. Lungs: No focal consolidation. Mild diffuse interstitial prominence. Pleura: No effusion. No pneumothorax. Cardiomediastinal contours: Mild cardiomegaly Bones: No acute osseous abnormality. IMPRESSION: Enteric tube is not well-visualized with the tip possibly slightly below the GE junction and the side port above the GE junction. Recommend advancing about 10 cm for more optimal positioning. Endotracheal tube is in satisfactory position. Mild pulmonary vascular congestion. ATED BY: LYNDSEY TENORIO DO DICTATED DATE/TIME: 01/31/241952 SIGNED BY: LYNDSEY TENORIO DO SIGNED DATE/TIME: 01/31/241952 CC: EKG Name: MIRI FARRELL Acct: [id number] [place] [address] ELECTROCARDIOGRAM REPORT PATIENT: MIRI FARRELL ACCT: [id number] : 1970 LOC: OVERFLOW ROOM / BED: [address] [place] [address] / A AGE / SEX: 53 / M ADM STATUS: ADM IN SERVICE 49 UNIT: [id number] ORDERING PHYSICIAN: URBAN TOSCANO MD PROCEDURE(s): EKG - ELECTROCARDIGRAM ORDER NUMBER(s): [id number], ACCESSION NUMBER(s): [id number] [facility] Test Date: 2024-01-31 Test Time: 18:57:26 Pat Name: MIRI FARRELL Department: ED Room: [address] [place] [address] Gender: M [employer] Machine: YESICA : 1970 Requested By: URBAN TOSCANO Order Number: [id number] Reading MD: Measurements Intervals [place] Rate: 143 P: 86 UT: 135 QRS: 74 QRSD: 105 T: -30 QT: 303 QTc: 468 Interpretive Statements Incomplete analysis due to missing data in precordial lead(s) Sinus tachycardia Ventricular premature complex Probable left atrial enlargement Borderline T abnormalities, inferior leads Baseline wander in lead(s) V3 Missing lead(s): V4 Please click the below link to view image of tracing. DICTATED BY: DICTATED DATE/TIME:01/31/24 5164 ELECTRONICALLY SIGNED BY: ELECTRONICALLY CO-SIGNED BY: Assessment/Plan Assessment/Plan Assessment: Mr. Farrell, a 53-year-old with asthma, was brought in for severe shortness of breath and wheezing, requiring intubation and ICU admission after initial treatments failed to improve his condition. Plan: #1 acute on chronic asthma: Likely asthma exacerbation. Limited history patient takes albuterol +ipratropium at home not sure about patient's compliance . Further history to be taken when patient is alert awake and post extubated/family nearby. #2 Likely community-acquired pneumonia Gram-positive Gram-negative: check sputum culture, blood culture, rule out common respiratory viral panel, pending, IV ABX to continue for broad coverage. #3 Acute hypoxic and hypercapnic respiratory failure: Acute respiratory acidosis with Likely due to above on intubation, appreciate RT team, Mild pulmonary edema status post IV Lasix 40 mg. post intubation blood gas improved. Mildly elevated D-dimer, CT PE pending. #4 likely type 2 NSTEMI: Possibly demand mediated with mild elevation of troponin, no acute ST-T changes, continue the patient on aspirin and atorvastatin, echo, keep the patient on telemetry. TSH WNL, BNP 260s, troponin peak 106. #5 Acute sepsis likely due to above: No lactic acidosis, reassuring, IV fluid, antibiotics continue. #6 Recurrent hyperkalemia : Hyperkalemia protocol initiated, IV glucagon, IV lasix and bicarbonate, when possible administer lokelma, as well, check repeat EKG, IV Lasix to continue on tele, repeat potassium mid day. #7 Overweight: BMI 28.8, further counseling needed. PUD prophylaxis: protonix 40mg IV daily. DVT prophylaxis: Lovenox 40mg IV daily. Barriers to discharge: Medical diagnosis and management in progress. remains in the ICU level of care. Further information needed. PCP: Not known Specialist Relevant To Admission: ICU. Critical Care. Case discussed with Dr. Dave. Code Status: Full Code Presumably. Critical care time spent 90 minutes at bedside. Plan discussed with: Patient, Other (Primary team, RN.) My Orders Orders - ROSY MADDOX Procedure Category Date Status Time Admit ADMIT 01/31/24 Transmitted 20:52 Nitroglycerin [facility] 01/31/24 Logged Sublingual (Ntrostat 21:00 Morphine Sulfate [facility] 01/31/24 Logged Injection 21:00 Oxygen By Nasal RT 01/31/24 Transmitted Cannula 20:52 Stat Ekg For Chest [facility] 01/31/24 In Process Pain 20:52 Notify Md Of Changes [facility] 01/31/24 In Process From Base 20:52 Music Artist For [facility] 01/31/24 In Process 24 Hours 20:52 Emergency Dysrhythmia [facility] 01/31/24 In Process Protocol 20:52 Rhythm Strips Once [facility] 01/31/24 In Process Every Shift 20:52 Respiratory Syncytial [facility] 01/31/24 Logged Virus Ag 20:56 Blood Culture [facility] 01/31/24 Transmitted 20:59 Urine Bacterial [facility] 01/31/24 Transmitted Culture 20:59 Respiratory Culture [facility] 01/31/24 Transmitted W/ Gs 20:59 Urinalysis LAB 01/31/24 Transmitted 20:59 Complete Blood Count LAB 02/01/24 Verified 04:00 Comprehensive LAB 02/01/24 Verified Metabolic Panel 04:00 Drug Screen LAB 01/31/24 Transmitted 20:59 Blood Alcohol LAB 01/31/24 Transmitted 20:59 Thyroid Stimulating LAB 01/31/24 Transmitted Hormone 20:59 B-Type Natriuretic LAB 01/31/24 Transmitted Peptide 20:59 Troponin-I Hs LAB 01/31/24 Transmitted 20:59 Troponin-I Hs LAB 01/31/24 Transmitted 21:59 Troponin-I Hs LAB 01/31/24 Transmitted 23:59 D-Dimer LAB 01/31/24 Transmitted 20:59 Abg W/ Co-Ox RT 01/31/24 Transmitted 20:59 Comprehensive LAB 01/31/24 Verified Metabolic Panel 21:03 Date of Service: Jan 31, 2024 Billing Provider: LLOYD DAVE MD Common Visit Codes: 97411-[id number] CARE 30-74 MIN, 15586-[id number] CARE-EACH +30MIN ROSY MADDOX Jan 31, 2024 21:05 LLOYD DAVE MD Feb 04, 2024 18:25
[2024-01-31] MEDS: cefTRIAXone 1GM/50ML D5W 50 ML IV ONE (21:28)
[2024-01-31 21:52] LABS: Calcium 9.3 mg/dL (8.7-10.4); Carbon Dioxide 24 mmol/L (20-31); Chloride 105 mmol/L (98-107)
[2024-01-31 21:53] LABS: Albumin 4.6 g/dL (3.2-4.8); Anion Gap 6 (5-15); BUN/Creatinine Ratio 11.6 (10.0-20.0); Bilirubin, Total 0.7 mg/dL (0.2-1.0); Blood Urea Nitrogen 15 mg/dL (9-23); Total Protein 7.2 g/dL (5.7-8.2)
[2024-01-31 21:57] LABS: Alanine Aminotransferase 54 U/L (7-40); Alkaline Phosphatase 133 U/L (46-116); Aspartate Aminotransferase 57 U/L (13-40); Glucose 237 mg/dL (74-106); Sodium 135 mmol/L (136-145)
[2024-01-31 22:01] LABS: Potassium 5.8 mmol/L (3.5-5.1)
[2024-01-31 22:42] VITALS: BP 114/66; PULSE 93; RESP 23; O2SAT 98
--- NOTE | 2024-01-31 23:20 | DVH ---
CHEST RADIOGRAPH Indication: post IJ line. Technique: Single frontal view of the chest was obtained Comparison: XY CHEST PORTABLE on DOS: 01/31/24 Findings/ IMPRESSION: Endotracheal tube projects 4 cm superior to the augusto. Right IJ CVC projects terminating in the SVC. No active cardiopulmonary disease.
[2024-01-31 23:36] LABS: Base Excess -2.8 mmol/L (-2.0-3.0)
[2024-01-31 23:39] VITALS: BP 96/49; PULSE 98; RESP 22; O2SAT 95
[2024-02-01] VITALS (14 sets, daily range): BP systolic 93–119; BP diastolic 52–72; PULSE 78–108; RESP 22–28; O2SAT 93–99
[2024-02-01] MEDS: SODIUM BICARB 8.4% 50Meq/50ml SYR INJ IV ONE ×2 (00:16→07:30)
[2024-02-01] MEDS: DEXTROSE (50%) 50ML SYRG IV ONE ×3 (00:22→07:30)
[2024-02-01] MEDS: CALCIUM GLUC 1,000mg/50ml-NS 50 ML IV ONE (00:22)
[2024-02-01] MEDS: InsuLIN REG 1unit/0.01ml Soln (100units/ml) IV ONE ×2 (00:48→07:30)
--- NOTE | 2024-02-01 00:51 | ECG ---
[facility] Test Date: 2024-01-31 Test Time: 18:57:26 Pat Name: MIRI PHELPS Department: ED Room: [address] [place] [address] Gender: M [employer]: YESICA : 1970 Requested By: URBAN GRANDE Order Number: [id number] Reading MD: Ld Davis Measurements Intervals [place] Rate: 143 P: 86 [place]: 135 QRS: 74 QRSD: 105 T: -30 QT: 303 QTc: 468 Interpretive Statements Incomplete analysis due to missing data in precordial lead(s) Sinus tachycardia Ventricular premature complex Probable left atrial enlargement Borderline T abnormalities, inferior leads Baseline wander in lead(s) V3 Missing lead(s): V4 Electronically Signed On 02-02-2024 12:48:15 PST by Ld Davis Please click the below link to view image of tracing.
[2024-02-01] MEDS: ALBUTEROL SULF 2.5 MG/0.5ML(0.5%) NEB SOLN NEB PRN (02:37)
[2024-02-01] MEDS: IPRATROPIUM BROM 0.5 MG/2.5ML INH SOL NEB PRN (02:38)
[2024-02-01 05:34] LABS: Basophils # (auto) 0 10 ^3/uL (0-0.2); Basophils % (auto) 0.2 % (0.0-2.0); Eosinophils # (auto) 0 10 ^3/uL (0-0.8); Hematocrit 42.8 % (41.0-53.0); Hemoglobin 13.9 g/dL (13.5-17.5); Lymphocytes # (auto) 0.5 10 ^3/uL (0.4-5.4); Mean Corpuscular Hemoglobin 29.1 pg (28.0-32.0); Mean Corpuscular Hgb Conc. 32.5 g/dL (32.0-36.0); Mean Corpuscular Volume 89.6 fL (80.0-100.0); Monocytes # (auto) 0.4 10 ^3/uL (0-1.3); Monocytes % (auto) 2.7 % (0.0-12.0); Neutrophils # (auto) 15.2 10 ^3/uL (1.6-8.6); Neutrophils % (auto) 94.1 % (37.0-80.0); Platelet Count (auto) 244 10^3/uL (140-450); Red Blood Cells 4.78 10^6/uL (4.5-5.90); Red Cell Distribution Width 14.5 % (11.8-14.3); White Blood Cell 16.1 10^3/uL (4.4-10.8)
[2024-02-01 05:41] LABS: Albumin 4.1 g/dL (3.2-4.8); Alkaline Phosphatase 98 U/L (46-116); Anion Gap 7 (5-15); Aspartate Aminotransferase 24 U/L (13-40); BUN/Creatinine Ratio 15.3 (10.0-20.0); Bilirubin, Total 0.5 mg/dL (0.2-1.0); Blood Urea Nitrogen 19 mg/dL (9-23); Calcium 9.4 mg/dL (8.7-10.4); Carbon Dioxide 29 mmol/L (20-31); Chloride 103 mmol/L (98-107); Sodium 139 mmol/L (136-145)
[2024-02-01 05:42] LABS: Total Protein 6.3 g/dL (5.7-8.2)
[2024-02-01 06:34] LABS: Alanine Aminotransferase 41 U/L (7-40); Glucose 167 mg/dL (74-106)
[2024-02-01 06:35] LABS: Potassium 5.6 mmol/L (3.5-5.1)
[2024-02-01] MEDS: FUROSEMIDE 40 MG/4 ML VIAL IV ONE (07:30)
[2024-02-01] MEDS: SODIUM ZIRCONIUM CYCL 10 GM PAK PO ONE (07:45)
[2024-02-01 07:58] LABS: Rapid Influenza A Negative (Negative); Rapid Influenza B Negative (Negative)
[2024-02-01 07:59] LABS: COVID19 ANTIGEN SOFIA FIA NEGATIVE (NEGATIVE)
--- NOTE | 2024-02-01 08:45 | DVH ---
EXAM: XY CHEST XRAY 1 VIEW Indication: NG TUBE Placement Technique: Single frontal view of the chest was obtained Comparison: XY CHEST PORTABLE on DOS: 01/31/24, XY CHEST PORTABLE on DOS: 01/31/24 FINDINGS: Lines and Tubes: Endotracheal tube projects 5 cm above the augusto. Right internal jugular central aydee ous catheter tip projects over the superior vena cava. Enteric tube tip projects over the expected re gion of the stomach. Lungs: No focal consolidation. Pleura: No effusion. No pneumothorax. Cardiomediastinal contours: Unremarkable Bones: No acute osseous abnormality. IMPRESSION: Lines and tubes in appropriate position.
[2024-02-01 08:50] LABS: Base Excess -3.4 mmol/L (-2.0-3.0)
[2024-02-01] MEDS: cefTRIAXone 1GM/50ML D5W 50 ML IV SCH (09:27)
[2024-02-01] MEDS ORDERED: ALBUTEROL SULF 2.5 MG/0.5ML(0.5%) NEB SOLN NEB PRN (10:00)
[2024-02-01] MEDS: AZITHROMYCIN 500MG/ 250ML 250 ML IV SCH (10:19)
[2024-02-01] MEDS: PANTOPRAZOLE 40 MG/10 ML VIAL INJ IV SCH (10:19)
[2024-02-01] MEDS: ASPirin 81 mg TAB PO SCH (10:20)
[2024-02-01] MEDS: ENOXAPARIN SOD 40 MG/0.4 ML SYRINGE SC SCH (10:20)
--- NOTE | 2024-02-01 10:30 | DVHPN2 ---
Assessment/Plan Assessment/Plan ICU progress note Subjective 53 yo M admitted for SOB, had hx of asthma, desaturating and intubated in ED, found to be hypertensive, after sedation became hypotensive. Objective Physical exam Intubated, sedated and mechanically ventilated PERRLA Withdraws to pain S1 S2 RRR Mechanical breath sounds Abdomen soft nontender No LE edema Lab WBC 21 K 5.6 Cr 1.2 trop 114 BNP 260 7.28/51/82 Vent AC/VC 500 22 50% 5 Drips propofol 5 fentanyl 125 versed 5 levophed [address] T wave abnormalities Imaging CXR clear, ETT R IJ TLC in place Echo wet read no TR or RV strain Assessment and plan Acute hypoxic hypercapnic respiratory failure Asthma exacerbation Type 2 MO demand ischemia Hypertensive urgency distributive shock sedation related continue with mechanical ventilation sedation to RAAS -3 maintain SpO2 > 92% ABG compensated, permissive hypercapnia for pH > 7.2 albuterol and ipatropium q4 flor solumedrol 40 BID empiric coverage with ceft and azithromycin hold antiHTN echo dc CTPE for now maintain map >70 MRSA swab, bcx scx UA Ucx uds Lines R IJ TLC NGT [place] Maintain potassium of 4, phosphate of 3 and magnesium of 2 Diet trickle feed GI prophylaxis protonix DVT prophylaxi lovenox Condition critical Prognosis poor 108 minutes critical care time spent on this patient including evaluation, chart review, formulating plan and communication with team, excluding any procedures or point of care imaging Plan discussed with: Patient Date of Service: Feb 01, 2024 Billing Provider: IVET QUINN MD Common Visit Codes: 36671-[id number] CARE 30-74 MIN, 52967-[id number] CARE-EACH +30MIN IVET QUINN MD Feb 01, 2024 10:30
[2024-02-01] MEDS: ALBUTEROL SULF 2.5 MG/0.5ML(0.5%) NEB SOLN NEB SCH (10:45)
[2024-02-01] MEDS: IPRATROPIUM BROM 0.5 MG/2.5ML INH SOL NEB SCH (11:01)
--- NOTE | 2024-02-01 13:35 | DVHSR ---
APPROVED REPORT EXAM: LIMITED Two-dimensional and M-mode echocardiogram with Doppler and color Doppler. Blood Pressure: 101/59 mmHg INDICATION ELEVATED TROP RISK FACTORS Obesity: Height: 5'10, Weight: 200 DIMENSIONS LVDd5.1 (3.8-5.7cm)LA (2D)4.6 (1.9-4.0cm)Aortic Root3.1 (2.0-3.7cm) LVDs3.3 (2.5-4.0cm)LA (MM) (1.9-4.0cm)Aortic Cusp Exc1.4 (1.5-2.0cm) EF (%) 63.0 (55-70%)Rt. Atrium4.6 (1.9-4.0cm)Asc. Aorta cm IVSd0.9 (0.7-1.1cm)RV (D) (1.8-2.4cm) PWd1.4 (0.7-1.1cm) Mitral Valve MitralMitral Stenosis E wave0.91m/sMV Mean GR.mmHg A wave0.77m/sMV Peak GR.73mmHg E/A ratio1.22D MVAcm2 DECEL [id number] 1/2 Timems Aortic Valve Aortic ValveAortic Stenosis LVOT Diameter2.1 (1.8-2.4cm)Doppler AVAcm2 Other Information Quality : LimitedRhythm : Technically limited study due to on vent. Conclusion Mild concentric left ventricular hypertrophy. Normal left ventricular systolic size and dimension. Normal left ventricular systolic function estimated ejection fraction 55%. There is a grade 1 diasto lic dysfunction Normal right ventricular size and dimension. Normal right ventricular systolic function. Normal biatrial size and dimension. Normal aortic valve structure and function. Normal mitral valve structure and function. Normal tricuspid valve structure and function. The pulmonary valve is grossly normal. There is a small circumferential pericardial effusion.
[2024-02-01 14:34] LABS: Base Excess -1.7 mmol/L (-2.0-3.0)
[2024-02-01] MEDS: ALBUTEROL SULF 2.5 MG/0.5ML(0.5%) NEB SOLN NEB ONE (15:55)
[2024-02-01] MEDS: SODIUM CHLORIDE 0.9% 1,000 ML IV ONE (16:28)
--- NOTE | 2024-02-01 22:09 | DVHINCON2 ---
Date of service: Feb 01, 2024 Referring Physician Jim Ojeda MD Reason for Consultation Acute hypoxic respiratory failure requiring mechanical ventilator, asthma exacerbation. History of Present Illness A 53-year-old man with past medical history of asthma who was brought in by ambulance to ED on 01/31/24 for shortness of breath and wheezing. Patient experienced a sudden, severe asthma exacerbation that did not improve with at- home treatments. EMS found him in respiratory distress with an SpO2 of 58% on room air, high blood pressure, and tachycardia. He was given oxygen and a breathing treatment, which improved his SpO2 to 99%. Upon arrival at the ED, he remained in respiratory distress, unable to provide additional information, and repeatedly stated "I cannot breathe." Pt denied any chest pain, phlegm, fever, nausea, or vomiting. Patient required intubation and placement on mechanical ventilator, was admitted to the ICU for further care. Pulmonary consultation is requested for evaluation and management due to the above findings. Review of Systems: Unobtainable d/t intubated status. Past Medical History: Asthma Past Surgical History: None Medications: Reviewed. Allergies: Unobtainable, severe shortness of breath. Family History: Granddaughter w/ pulmonary embolism. Social History: Nonsmoker. No alcohol or illicit drug use. Family History: FHx: pulmonary embolism GRANDDAUGHTER Allergies: Coded Allergies: NO KNOWN ALLERGIES (Unverified , 01/29/23) UNOBTAINABLE (Unverified , 01/31/24) SEVERLY SOB Home Meds Active Scripts Cephalexin Monohydrate (Cephalexin) 500 Mg Cap, 1 CAP PO TID for 7 Days, #30 CAP Prov:ARMANDOGEOFFREYHENNA RESIDENT 01/31/23 Lidocaine (LIDODERM 5% TOPICAL PATCH) 1 Patch Ph, 1 PATCH TOP DAILY for 7 Days, #7 PATCH Prov:ARMANDOREESEHARJIT ROSALESIANA RESIDENT 01/31/23 Atorvastatin Calcium (ATORVASTATIN CALCIUM) 20 Mg Tab, 40 MG PO HS for 30 Days, #60 TAB Prov:ARMANDOREESEBOBBYHENNA RESIDENT 01/31/23 Reported Medications Lisinopril (Lisinopril) 20 Mg Tab, 20 MG PO DAILY for 30 Days, MG 01/30/23 Aspirin (Aspir-Low) 81 Mg Tab, 81 MG PO DAILY for 30 Days, MG 01/30/23 Current Medications Current Medications Medications (Trade) Dose Ordered Sig/Compa Route PRN Reason Start Time Stop Time Status Last Admin Norepinephrine Bitartrate 250 ml @ 3.75 mls/hr Q24H IV 02/01/24 00:15 02/01/24 02:00 Ceftriaxone Sodium 50 ml @ 100 mls/hr DAILY@09 IV 02/01/24 09:00 02/01/24 09:27 Azithromycin 250 ml @ 125 mls/hr DAILY IV 02/01/24 10:00 02/01/24 10:19 Pantoprazole Sodium (Protonix) 40 mg DAILY IV 02/01/24 10:00 02/01/24 10:19 Aspirin 81 mg DAILY PO 02/01/24 10:00 02/01/24 10:20 Atorvastatin Calcium (Lipitor) 40 mg HS PO 02/01/24 22:00 Enoxaparin Sodium (Lovenox) 40 mg DAILY SC 02/01/24 10:00 02/01/24 10:20 Ipratropium [place] (Atrovent Medneb) 0.5 mg Q4HR NEB 02/01/24 10:00 02/01/24 18:35 Albuterol (Ventolin Medneb) 1.25 mg Q4HPRN PRN NEB SHORTNESS OF BREATH 02/01/24 10:00 02/01/24 10:46 DC Albuterol (Ventolin Medneb) 2.5 mg Q4HR NEB 02/01/24 10:45 02/01/24 18:34 Zirconium Oxide (Lokelma) 10 gm BID PO 02/01/24 22:00 02/04/24 21:59 Methylprednisolone Sodium Succinate (Solu Medrol) 40 mg BID IV 02/01/24 22:00 Vital Signs Vital Signs Date Time Temp Pulse Resp B/P (MAP) Pulse Ox O2 Delivery O2 Flow Rate FiO2 02/01/24 21:45 100.8 108 22 105/60 (75) 94 100.8 02/01/24 20:25 40 02/01/24 19:20 Mechanical Ventilator+ 01/31/24 19:30 0 Physical Exam Gen.: Patient lying in bed in medical ICU. Sedated, intubated on mechanical ventilator. Head: Normocephalic, atraumatic. Eyes: PERRLA. Ears: Normal external anatomy. Throat: Endotracheal tube and orogastric tube in place. Neck: Supple, trachea midline. Chest: Transmitted breath sounds bilaterally. Decreased air entry bilaterally. Bilateral wheezing present. Bibasilar crackles. Cardiovascular: Positive S1, positive S2. Regular rate and rhythm. Abdomen: Positive bowel sounds in all 4 quadrants. Soft, nontender, nondistended. : Moscoso in place. Normal external genitalia. Rectal: Deferred. Skin: Warm, dry. Intact. Extremities: 2+ radial pulses bilaterally. No lower extremity edema. Neuro: Sedated. Labs/Diagnostic Data Labs Test 02/01/24 18:09 02/01/24 14:20 02/01/24 11:54 02/01/24 06:43 Range/Units POC Glucose 91 70-106 mg/dl Blood Gas Specimen Type Arterial Blood Gas Sample Site Right radial Blood Gas Patient Temperature 37.0 Arterial Blood Date Drawn [id number] Arterial Blood pH 7.168 *L 7.350-7.450 Arterial Blood Partial Pressure CO2 82.4 *H 35.0-48.0 mmHg Arterial Blood Partial Pressure O2 75.5 L 83.0-108.0 mmHg Arterial Blood HCO3 29.2 H 21.0-28.0 mmol/L Arterial Blood Oxygen Saturation 91.6 L 94.0-98.0 % Arterial Blood Base Excess -1.7 -2.0-3.0 mmol/L Arterial Blood Oxyhemoglobin 90.2 L 94.0-98.0 % Arterial Blood Carboxyhemoglobin 1.0 0.5-1.5 % Arterial Blood Methemoglobin 0.5 0.0-1.5 % Davide Test Modified Blood Gas Total Hemoglobin 14.30 13.5-17.5 g/dL Blood Gas Set Respiration Rate 22.0 Blood Gas Modality Vent - ac FiO2 % 40.0 Blood Gas Tidal Volume 450.0 Blood Gas PEEP or CPAP 5.0 Blood Gas Critical Value Read Back Yes Blood Gas Notified Whom elroy Fields Blood Gas Notified Time [id number] Blood Gas Notified By Verifier mallory felder Potassium Level 4.7 3.5-5.1 mmol/L Influenza Type A Antigen Negative Negative Influenza Type B Antigen Negative Negative SARS-CoV-2 Antigen (Rapid) Negative NEGATIVE Test 02/01/24 05:03 02/01/24 00:30 01/31/24 21:09 01/31/24 19:36 Range/Units White Blood Count 16.1 H 4.4-10.8 10^3/uL Red Blood Count 4.78 4.5-5.90 10^6/uL Hemoglobin 13.9 13.5-17.5 g/dL Hematocrit 42.8 # 41.0-53.0 % Mean Corpuscular Volume 89.6 80.0-100.0 fL Mean Corpuscular Hemoglobin 29.1 28.0-32.0 pg Mean Corpuscular Hemoglobin Concent 32.5 32.0-36.0 g/dL Red Cell Distribution Width 14.5 H 11.8-14.3 % Platelet Count 244 140-450 10^3/uL Mean Platelet Volume 8.9 6.9-10.8 fL Neutrophils (%) (Auto) 94.1 H 37.0-80.0 % Lymphocytes (%) (Auto) 3.0 L 10.0-50.0 % Monocytes (%) (Auto) 2.7 0.0-12.0 % Eosinophils (%) (Auto) 0.0 0.0-7.0 % Basophils (%) (Auto) 0.2 0.0-2.0 % Neutrophils # (Auto) 15.2 H 1.6-8.6 10 ^3/uL Lymphocytes # (Auto) 0.5 0.4-5.4 10 ^3/uL Monocytes # (Auto) 0.4 0-1.3 10 ^3/uL Eosinophils # (Auto) 0 0-0.8 10 ^3/uL Basophils # (Auto) 0 0-0.2 10 ^3/uL Nucleated Red Blood Cells 0.0 % Sodium Level 139 136-145 mmol/L Chloride Level 103 98-107 mmol/L Carbon Dioxide Level 29 20-31 mmol/L Anion Gap 7 5-15 Blood Urea Nitrogen 19 9-23 mg/dL Creatinine 1.24 0.700-1.30 mg/dL Glomerular Filtration Rate Calc 70 >90 mL/min BUN/Creatinine Ratio 15.3 10.0-20.0 Serum Glucose 167 H 74-106 mg/dL Calcium Level 9.4 8.7-10.4 mg/dL Total Bilirubin 0.5 0.2-1.0 mg/dL Aspartate Amino Transferase (AST) 24 13-40 U/L Alanine Aminotransferase (ALT) 41 H 7-40 U/L Alkaline Phosphatase 98 46-116 U/L Total Protein 6.3 5.7-8.2 g/dL Albumin 4.1 3.2-4.8 g/dL Troponin I High Sensitivity 106 *H </=54 ng/L Lactic Acid Level 1.7 0.4-2.0 mmol/L D-Dimer, Quantitative 1.35 H 0.0-0.49 mg/L FEU B-Type Natriuretic Peptide 260.79 0-100 pg/mL Thyroid Stimulating Hormone (TSH) 2.62 0.55-4.78 uIU/mL Plasma/Serum Blood Alcohol < 3.0 <10 mg/dL Microbiology Date/Time Source Procedure Growth Status 01/31/24 21:30 Blood Blood Culture - Preliminary NO GROWTH AFTER 24 HOURS OF INCUBATION. Resulted Assessment Impression: Acute hypoxic respiratory failure On mechanical ventilator Asthma exacerbation Likely community-acquired pneumonia Likely NSTEMI type 2 Acute sepsis Recurrent hyperkalemia Overweight, BMI 28.8 Plan: s/p intubation on mechanical ventilator. CXR image and report reviewed. Devices in place. No focal consolidation. No pneumothorax. No pleural effusion. ABG reviewed, notable for acidemia. On AC mode; RR 22, VT 500, PEEP 5, FiO2 of 50%. Titrate FIO2 to keep O2 saturation above 90%. VAP bundle. Daily ABG and CXR while intubated Sedate for ventilator synchrony - on Propofol, Versed, Fentanyl. Increased peak pressures; vent settings changed to RR 22, VT 450, PEEP 5, FiO2 of 45%. Continue bronchodilators. IV steroids Continue antibiotics. F/u cultures. On pressors (Levophed) for hemodynamic support Titrate to keep mean arterial pressure greater than 65 mmHg. Monitor renal function Monitor electrolytes. Supplement as necessary. Monitor ins and outs. Maintain euvolemia. GI prophylaxis - Protonix. DVT prophylaxis - Lovenox. Prognosis: Poor given patient's multiple co-morbidities. Condition: Critical Rest of plan per hospitalist and other consultants. A total of 36 minutes of critical care time was spent reviewing the patient record, examining the patient, making a diagnostic and therapeutic plan, discussing this plan with the medical personnel, following up on diagnostic studies and following the patient for clinical stability excluding any and all procedures. At least 50% of this time was spent in direct, [id number] contact. Thank you Dr. Jim Ojeda MD, for allowing me to participate in this patient's care. Further recommendations will depend on the patient's clinical course. Please do not hesitate to contact me if you have any questions or concerns. This medical document was created using an electronic medical record system with [employer] dictation system. Although these documentations are being carefully reviewed, there may still be some phonetic and typographical changes. The errors are purely typographical, due to imperfection on the software program, and do not reflect any compromise in the patient's medical care. Plan discussed with: Other (RN/MD Ojeda) WARREN POWELL MD Feb 01, 2024 22:09
[2024-02-01] MEDS: methylPREDNISolone SOD SUCC 40 MG/ML VL IV SCH (22:25)
[2024-02-01] MEDS: ATORVASTATIN 20 MG TAB PO SCH (22:25)
[2024-02-01] MEDS: SODIUM ZIRCONIUM CYCL 10 GM PAK PO SCH (22:26)
[2024-02-02] VITALS (89 sets, daily range): BP systolic 89–166; BP diastolic 37–99; PULSE 80–115; RESP 7–23; TEMP 98.8–99.3; O2SAT 93–100
[2024-02-02 00:29] LABS: Urine Bacteria None Seen /hpf (None Seen); Urine Squamous Epithelial Cell None Seen /hpf (<5); Urine WBC None Seen /hpf (0 - 3)
[2024-02-02] MEDS: ACETAMINOPHEN 650 MG RECT SUPP PR PRN (00:44)
[2024-02-02 01:03] LABS: Urine Blood Negative /uL (Negative); Urine Clarity Turbid (Clear); Urine Protein, UAD Negative (Negative); Urine Specific Gravity 1.013 (1.001-1.035); Urine Urobilinogen Normal (Negative)
[2024-02-02 01:06] LABS: Urine Color Yellow (Yellow)
[2024-02-02 01:28] LABS: Amphetamine Screen, Urine Pos (NEGATIVE); Barbiturate Scree,Urine Neg (NEGATIVE); Benzodiazephine Screen, Urine Pos (NEGATIVE); Cannabinoid Screen, Urine Neg (NEGATIVE); Cocaine Screen, Urine Neg (NEGATIVE); Opiate Scree,Urine Neg (NEGATIVE); Phencyclidine Screen, Urine Pos (NEGATIVE)
[2024-02-02 02:17] LABS: Base Excess 3.6 mmol/L (-2.0-3.0)
[2024-02-02 04:35] LABS: Basophils # (auto) 0 10 ^3/uL (0-0.2); Eosinophils # (auto) 0 10 ^3/uL (0-0.8); Eosinophils % (auto) 0.1 % (0.0-7.0); Hematocrit 39.4 % (41.0-53.0); Hemoglobin 12.9 g/dL (13.5-17.5); Lymphocytes # (auto) 0.4 10 ^3/uL (0.4-5.4); Lymphocytes % (auto) 2.8 % (10.0-50.0); Mean Corpuscular Hemoglobin 29.1 pg (28.0-32.0); Mean Corpuscular Hgb Conc. 32.6 g/dL (32.0-36.0); Mean Corpuscular Volume 89.3 fL (80.0-100.0); Monocytes # (auto) 0.6 10 ^3/uL (0-1.3); Monocytes % (auto) 3.9 % (0.0-12.0); Neutrophils # (auto) 14.9 10 ^3/uL (1.6-8.6); Neutrophils % (auto) 93.2 % (37.0-80.0); Platelet Count (auto) 209 10^3/uL (140-450); Red Blood Cells 4.41 10^6/uL (4.5-5.90); Red Cell Distribution Width 14.9 % (11.8-14.3)
[2024-02-02 04:43] LABS: Anion Gap 5 (5-15); Carbon Dioxide 30 mmol/L (20-31); Chloride 105 mmol/L (98-107); Sodium 140 mmol/L (136-145)
[2024-02-02 04:45] LABS: Calcium 9.2 mg/dL (8.7-10.4)
[2024-02-02 04:50] LABS: BUN/Creatinine Ratio 23.9 (10.0-20.0)
[2024-02-02 04:51] LABS: Blood Urea Nitrogen 28 mg/dL (9-23); Glucose 138 mg/dL (74-106); Potassium 5.3 mmol/L (3.5-5.1)
[2024-02-02] MEDS: NOREPINEPHRINE 8 MG/250ML KIT 250 ML IV SCH (06:32)
[2024-02-02] MEDS: SODIUM ZIRCONIUM CYCL 10 GM PAK GT ONE (06:40)
[2024-02-02 07:28] LABS: Base Excess -0.6 mmol/L (-2.0-3.0)
[2024-02-02] MEDS: KETAMINE 50mg/ML 10ml Vial 500 MG in SODIUM CHL 0.9% 490 ML IV SCH (11:43)
--- NOTE | 2024-02-02 12:56 | DVHPN2 ---
Assessment/Plan Assessment/Plan ICU progress note Subjective 53 yo M admitted for SOB, had hx of asthma, desaturating and intubated in ED, found to be hypertensive, after sedation became hypotensive. Seen pt duirng rounds Improved breath sounds and peak pressure, wheezing. UDS postiive for amphetamines and PCP. switch sedation to ketamine Objective Physical exam Intubated, sedated and mechanically ventilated PERRLA Withdraws to pain S1 S2 RRR Mechanical breath sounds Abdomen soft nontender No LE edema Lab WBC 21 K 5.6 Cr 1.2 trop 114 BNP 260 7.28/51/82 Vent AC/VC 500 22 50% 5 Drips propofol 10 fentanyl 275 versed 15 levophed [address] T wave abnormalities Imaging CXR clear, ETT R IJ TLC in place Echo wet read no TR or RV strain Assessment and plan Acute hypoxic hypercapnic respiratory failure Asthma exacerbation Type 2 [place] demand ischemia Hypertensive urgency distributive shock sedation related Substance use continue with mechanical ventilation sedation to RAAS -3 titrate down fentanyl and versed, add on ketamine maintain SpO2 > 92% ABG compensated, permissive hypercapnia for pH > 7.2 albuterol and ipatropium q4 flor solumedrol 40 BID empiric coverage with ceft and azithromycin hold antiHTN echo dc CTPE for now maintain map >70 MRSA swab, bcx scx UA Ucx uds Lines R IJ TLC NGT [place] Maintain potassium of 4, phosphate of 3 and magnesium of 2 Diet trickle feed GI prophylaxis protonix DVT prophylaxi lovenox Condition critical Prognosis poor 99 minutes critical care time spent on this patient including evaluation, chart review, formulating plan and communication with team, excluding any procedures or point of care imaging Plan discussed with: Patient My Orders Orders - IVET QUINN MD Procedure Category Date Status Time Communication Order ORDERS 02/01/24 Transmitted 15:29 Sodium Chl 0.9% PHA 02/02/24 In Process (So... W/Ketamine 08:30 Basic Metabolic Panel LAB 02/03/24 Verified 04:00 Complete Blood Count LAB 02/03/24 Verified 04:00 Abg W/ Co-Ox RT 02/03/24 Logged 04:00 Tube Feeding DIET 02/02/24 Transmitted Breakfast Date of Service: Feb 02, 2024 Billing Provider: IVET QUINN MD Common Visit Codes: [id number] CARE 30-74 MIN, [id number] CARE-EACH +30MIN IVET QUINN MD Feb 02, 2024 12:56
--- NOTE | 2024-02-02 15:59 | DVHPN2 ---
Progress Note - Dictate Date Seen: Feb 02, 2024 Medical Necessity Reason Pt with a Central, PICC or Fol: Yes The following are medically ne: Mckeon Catheter Reason for mckeon catheter: Strict I&O Subjective Patient seen and examined at bedside. Sedated, intubated on mechanical ventilator. Overnight events reviewed. vital signs Vital Sign Date Time Temp Pulse Resp B/P (MAP) Pulse Ox O2 Delivery O2 Flow Rate FiO2 02/02/24 14:30 85 22 102/60 (74) 96 02/02/24 14:24 40 02/02/24 14:00 Mechanical Ventilator+ 40 02/02/24 12:00 99.3 99.3 Total Intake and Output 02/01/24 02/01/24 02/02/24 15:00 23:00 07:00 Intake Total 302.73 ml 1300 ml 346.97 ml Output Total 1000 ml Balance 302.73 ml 1300 ml -653.03 ml medications Current Medications Medications Dose Ordered Sig/Compa Route Start Time Stop Time Status Last Admin Dose Admin Propofol 100 ml @ 2.73 mls/hr Q24H IV 01/31/24 19:15 02/02/24 05:07 13.65 MLS/HR Midazolam HCl 50 ml @ 1 mls/hr Q24H IV 01/31/24 19:15 02/02/24 15:52 10 MLS/HR Fentanyl Citrate 250 ml @ 2.5 mls/hr Q24H IV 01/31/24 19:30 02/02/24 13:56 27.5 MLS/HR Acetaminophen 1,000 mg [id number] PRN IV 01/31/24 20:00 01/31/24 20:01 Cancel Norepinephrine Bitartrate 250 ml @ 3.75 mls/hr Q24H IV 02/01/24 00:15 02/01/24 02:00 3.75 MLS/HR Ceftriaxone Sodium 50 ml @ 100 mls/hr DAILY@09 IV 02/01/24 09:00 02/02/24 07:59 100 MLS/HR Azithromycin 250 ml @ 125 mls/hr DAILY IV 02/01/24 10:00 02/02/24 09:15 125 MLS/HR Pantoprazole Sodium 40 mg DAILY IV 02/01/24 10:00 02/02/24 09:13 40 MG Aspirin 81 mg DAILY PO 02/01/24 10:00 02/02/24 09:15 81 MG Atorvastatin Calcium 40 mg HS PO 02/01/24 22:00 02/01/24 22:25 40 MG Enoxaparin Sodium 40 mg DAILY SC 02/01/24 10:00 02/02/24 09:13 40 MG Ipratropium [place] 0.5 mg Q4HR NEB 02/01/24 10:00 02/02/24 14:24 0.5 MG Albuterol 2.5 mg Q4HR NEB 02/01/24 10:45 02/02/24 14:24 2.5 MG Zirconium Oxide 10 gm BID PO 02/01/24 22:00 02/04/24 21:59 02/02/24 09:15 10 GM Methylprednisolone Sodium Succinate 40 mg BID IV 02/01/24 22:00 02/02/24 09:15 40 MG Acetaminophen 650 mg Q6HP PRN AL 02/02/24 00:00 02/02/24 00:44 650 MG Norepinephrine Bitartrate 250 ml @ 3.75 mls/hr Q24H IV 02/02/24 06:15 02/02/24 06:32 3.75 MLS/HR Ketamine HCl 500 mg/Sodium Chloride 500 ml @ 6.276 mls/ hr Q24H IV 02/02/24 08:30 02/02/24 11:43 6.276 MLS/HR objective Gen.: Patient lying in bed in medical ICU. Sedated, intubated on mechanical ventilator. Head: Normocephalic, atraumatic. Eyes: PERRLA. Ears: Normal external anatomy. Throat: Endotracheal tube and orogastric tube in place. Neck: Supple, trachea midline. Chest: Transmitted breath sounds bilaterally. Decreased air entry bilaterally. Bilateral wheezing present. Bibasilar crackles. Cardiovascular: Positive S1, positive S2. Regular rate and rhythm. Abdomen: Positive bowel sounds in all 4 quadrants. Soft, nontender, nondistended. : Mckeon in place. Normal external genitalia. Rectal: Deferred. Skin: Warm, dry. Intact. Extremities: 2+ radial pulses bilaterally. No lower extremity edema. Neuro: Sedated. laboratory and microbiology Laboratory Tests 02/02/24 04:10 Test 02/02/24 04:10 Range/Units Serum Glucose 138 H 74-106 mg/dL Assessment/Plan Impression: Acute hypoxic respiratory failure On mechanical ventilator Asthma exacerbation Likely community-acquired pneumonia Likely NSTEMI type 2 Acute sepsis Recurrent hyperkalemia Overweight, BMI 28.8 Events: Remains on vent support On AC mode; RR 22, VT 500, PEEP 5, FiO2 of 45%. Sedated on Propofol, Versed, Fentanyl On pressors (Levophed) for hemodynamic support Titrate to keep mean arterial pressure greater than 65 mmHg. ABG reviewed, compensated. Continue antibiotics IV steroids Continue bronchodilators Monitor for withdrawal. Improved peak pressures Improved air entry Taper sedation as tolerated CPAP trial once pt is awake, alert and following commands. Labs and imaging reviewed. Rest of plan as noted below. Plan: s/p intubation on mechanical ventilator. CXR image and report reviewed. Devices in place. No focal consolidation. No pneumothorax. No pleural effusion. ABG reviewed, notable for acidemia. On AC mode; RR 22, VT 500, PEEP 5, FiO2 of 45%. Titrate FIO2 to keep O2 saturation above 90%. VAP bundle. Daily ABG and CXR while intubated Sedate for ventilator synchrony - on Propofol, Versed, Fentanyl. Continue bronchodilators. IV steroids Continue antibiotics. F/u cultures. On pressors (Levophed) for hemodynamic support Titrate to keep mean arterial pressure greater than 65 mmHg. Monitor renal function Monitor electrolytes. Supplement as necessary. Monitor ins and outs. Maintain euvolemia. GI prophylaxis - Protonix. DVT prophylaxis - Lovenox. Prognosis: Poor given patient's multiple co-morbidities. Condition: Critical Rest of plan per hospitalist and other consultants. A total of 35 minutes of critical care time was spent reviewing the patient record, examining the patient, making a diagnostic and therapeutic plan, discussing this plan with the medical personnel, following up on diagnostic studies and following the patient for clinical stability excluding any and all procedures. At least 50% of this time was spent in direct, [id number] contact. Thank you Dr. Jim Ojeda MD, for allowing me to participate in this patient's care. Further recommendations will depend on the patient's clinical course. Please do not hesitate to contact me if you have any questions or concerns. This medical document was created using an electronic medical record system with [employer] dictation system. Although these documentations are being carefully reviewed, there may still be some phonetic and typographical changes. The errors are purely typographical, due to imperfection on the software program, and do not reflect any compromise in the patient's medical care. Plan discussed with: Other (IVANA Coyle) Critical Care Time(min): 35 WARREN POWELL MD Feb 02, 2024 15:59
[2024-02-03] VITALS (109 sets, daily range): BP systolic 95–134; BP diastolic 51–83; PULSE 74–109; RESP 20–25; TEMP 98–99; O2SAT 90–100
[2024-02-03] MEDS: ALBUTEROL SULF 2.5 MG/0.5ML(0.5%) NEB SOLN NEB ONE (00:47)
[2024-02-03 04:06] LABS: Basophils # (auto) 0 10 ^3/uL (0-0.2); Basophils % (auto) 0.2 % (0.0-2.0); Eosinophils # (auto) 0 10 ^3/uL (0-0.8); Hematocrit 38.1 % (41.0-53.0); Hemoglobin 12.4 g/dL (13.5-17.5); Lymphocytes # (auto) 0.6 10 ^3/uL (0.4-5.4); Lymphocytes % (auto) 4.2 % (10.0-50.0); Mean Corpuscular Hemoglobin 29.2 pg (28.0-32.0); Mean Corpuscular Hgb Conc. 32.5 g/dL (32.0-36.0); Mean Corpuscular Volume 89.8 fL (80.0-100.0); Monocytes # (auto) 0.6 10 ^3/uL (0-1.3); Monocytes % (auto) 4.1 % (0.0-12.0); Neutrophils % (auto) 91.5 % (37.0-80.0); Platelet Count (auto) 215 10^3/uL (140-450); Red Blood Cells 4.24 10^6/uL (4.5-5.90); Red Cell Distribution Width 15.2 % (11.8-14.3); White Blood Cell 15.3 10^3/uL (4.4-10.8)
[2024-02-03 04:17] LABS: Anion Gap 5 (5-15); Carbon Dioxide 31 mmol/L (20-31); Chloride 104 mmol/L (98-107); Sodium 140 mmol/L (136-145)
[2024-02-03 04:19] LABS: Calcium 9.2 mg/dL (8.7-10.4)
[2024-02-03 04:24] LABS: BUN/Creatinine Ratio 31.6 (10.0-20.0); Blood Urea Nitrogen 30 mg/dL (9-23); Glucose 125 mg/dL (74-106); Potassium 5.2 mmol/L (3.5-5.1)
[2024-02-03 04:25] LABS: Magnesium 2.7 mg/dL (1.6-2.6)
[2024-02-03 04:26] LABS: Phosphorus 4.1 mg/dL (2.4-5.1)
--- NOTE | 2024-02-03 05:43 | DVH ---
CHEST RADIOGRAPH Indication: ARF, INTUBATED Technique: Single frontal view of the chest was obtained Comparison: XY CHEST PORTABLE on DOS: 08/05/23, XY CHEST PORTABLE on DOS: 01/29/23 IMPRESSION: The cardiac silhouette appears prominent. Endotracheal tube, right IJ catheter, and enteric tube appe ar satisfactory in position. No sizable effusion or pneumothorax. Mild pulmonary vascular congestion. Patchy opacities in the right perihilar lung.
[2024-02-03 07:38] LABS: Base Excess 3.9 mmol/L (-2.0-3.0)
--- NOTE | 2024-02-03 10:37 | DVHPN2 ---
Assessment/Plan Assessment/Plan ICU progress note Subjective 53 yo M admitted for SOB, had hx of asthma, desaturating and intubated in ED, found to be hypertensive, after sedation became hypotensive. Seen pt duirng rounds improving peak pressures, req high sedation, switched over to ketamine yesterday. c/w slow weaning, bite block Objective Physical exam Intubated, sedated and mechanically ventilated PERRLA Withdraws to pain S1 S2 RRR Mechanical breath sounds, improving Abdomen soft nontender No LE edema Lab WBC 21 K 5.6 Cr 1.2 trop 114 BNP 260 7.28/51/82 Vent AC/VC 500 22 50% 5 Drips propofol 10 fentanyl 275 versed 15 levophed [address] T wave abnormalities Imaging CXR clear, ETT R IJ TLC in place Echo wet read no TR or RV strain Assessment and plan Acute hypoxic hypercapnic respiratory failure Asthma exacerbation Type 2 [place] demand ischemia Hypertensive urgency distributive shock sedation related Substance use continue with mechanical ventilation sedation to RAAS -3 titrate down fentanyl and versed, add on ketamine maintain SpO2 > 92% ABG compensated, permissive hypercapnia for pH > 7.2 albuterol and ipatropium q4 flor solumedrol 40 BID empiric coverage with ceft and azithromycin hold antiHTN echo dc CTPE for now maintain map >70 MRSA swab, bcx scx UA Ucx uds Lines R IJ TLC NGT [place] Maintain potassium of 4, phosphate of 3 and magnesium of 2 Diet trickle feed GI prophylaxis protonix DVT prophylaxi lovenox Condition critical Prognosis poor 86 minutes critical care time spent on this patient including evaluation, chart review, formulating plan and communication with team, excluding any procedures or point of care imaging Plan discussed with: Patient My Orders Orders - IVET QUINN MD Procedure Category Date Status Time Tube Feeding DIET 02/02/24 Transmitted Dinner Abg W/ Co-Ox RT 02/03/24 Logged 05:20 Date of Service: Feb 03, 2024 Billing Provider: IVET QUINN MD Common Visit Codes: [id number] CARE 30-74 MIN, [id number] CARE-EACH +30MIN IVET QUINN MD Feb 03, 2024 10:37
[2024-02-03] MEDS: methylPREDNISolone SOD SUCC 125 MG/2 ML VL IV SCH (14:21)
--- NOTE | 2024-02-03 17:47 | DVHPN ---
DATE: 02/03/2024 PULMONARY FOLLOWUP PRIMARY PHYSICIAN: Dr. Love. SUBJECTIVE: The patient has a history of asthma, bronchospasm, and drug abuse. The patient remains on 30% FiO2, still having some wheezing. The urine output has been stable. The patient is currently on fentanyl and Versed, and ketamine has been added. The patient is having low-grade fevers. PHYSICAL EXAMINATION: VITAL SIGNS: T-max of 99, yesterday was febrile. Respiratory rate is 22, heart rate is 84, blood pressure is 125/83, saturations 95 on 30% FiO2. NECK: Supple. No JVD. CHEST: Examination reveals bilateral wheezing. ABDOMEN: Soft, nontender. Bowel sounds normal. EXTREMITIES: No edema or clubbing. COR: S1, S2. No murmurs. LABORATORY DATA: Lab work was noted. A chest x-ray done this morning shows endotracheal tube and lines in place. There is patchy opacity in the right perihilar region. Other lab work reveals WBC 15, hematocrit 38, platelet count 215. Blood gases; pH 7.35, pCO2 of 55, pO2 of 81, saturation 95. The patient on assist control, tidal volume 500, rate of 22, PEEP of 5, and an FiO2 of 40% at that time. Since then, the patient has been decreased to 30%. Other labs significant for glucose 125. Magnesium level 2.7. The patient's troponins were also high on 02/01/2024. IMPRESSION: Acute respiratory failure, history of drug use, asthma exacerbation, type 2 diabetes, hypertension, possibility of coronary artery disease with increased troponins. The patient's peak pressures are also high at 40, plateau pressures, however, only 22. At this time, I would decrease the tidal volume and increase rate to 24. We will continue to titrate oxygen to keep saturation greater than 90. Continue bronchodilators. I have increased the Solu-Medrol to 60 mg IV q.8 hours for bronchospasm. Continue Protonix for GI prophylaxis. The patient is on Rocephin and Zithromax. The patient is also on Lovenox at 40 mg. A cardiac evaluation may also be useful. Plan was discussed with bedside RN and RT. Critical time was 35 minutes. MD TIFFANIE Obando/ANDREW TID: [id number] RECEIPT: [id number] cc: IVET QUINN MD
[2024-02-04] VITALS (108 sets, daily range): BP systolic 104–118; BP diastolic 56–71; PULSE 67–81; RESP 10–24; TEMP 98.4–99.1; O2SAT 90–99
[2024-02-04 03:18] LABS: Basophils # (auto) 0 10 ^3/uL (0-0.2); Basophils % (auto) 0.1 % (0.0-2.0); Eosinophils # (auto) 0 10 ^3/uL (0-0.8); Hemoglobin 12.4 g/dL (13.5-17.5); Lymphocytes # (auto) 0.7 10 ^3/uL (0.4-5.4); Lymphocytes % (auto) 5.5 % (10.0-50.0); Mean Corpuscular Hemoglobin 28.6 pg (28.0-32.0); Mean Corpuscular Hgb Conc. 31.9 g/dL (32.0-36.0); Mean Corpuscular Volume 89.7 fL (80.0-100.0); Monocytes # (auto) 0.4 10 ^3/uL (0-1.3); Monocytes % (auto) 3.1 % (0.0-12.0); Neutrophils # (auto) 10.8 10 ^3/uL (1.6-8.6); Neutrophils % (auto) 91.3 % (37.0-80.0); Platelet Count (auto) 229 10^3/uL (140-450); Red Blood Cells 4.35 10^6/uL (4.5-5.90); Red Cell Distribution Width 15.3 % (11.8-14.3); White Blood Cell 11.8 10^3/uL (4.4-10.8)
[2024-02-04 03:30] LABS: Anion Gap 3 (5-15); Chloride 106 mmol/L (98-107); Sodium 142 mmol/L (136-145)
[2024-02-04 03:31] LABS: Calcium 9.5 mg/dL (8.7-10.4)
[2024-02-04 03:36] LABS: BUN/Creatinine Ratio 33.7 (10.0-20.0)
[2024-02-04 03:42] LABS: Blood Urea Nitrogen 29 mg/dL (9-23); Carbon Dioxide 33 mmol/L (20-31); Glucose 143 mg/dL (74-106)
--- NOTE | 2024-02-04 05:58 | DVH ---
CHEST RADIOGRAPH Indication: ARF, INTUBATED Technique: Single frontal view of the chest was obtained COMPARISON: XY CHEST PORTABLE on DOS: 02/03/24, XY CHEST PORTABLE on DOS: 08/05/23, XY CHEST PORTABLE on DOS: 01/29/23 FINDINGS: Lines and Tubes: Endotracheal tube, enteric catheter and right central venous catheter in satisfactor y position. Lungs: Congestion Pleura: No effusion. No pneumothorax. Cardiomediastinal contours: Unremarkable Bones: Unremarkable IMPRESSION: Lines and tubes in satisfactory position. No significant interval change.
[2024-02-04 06:48] LABS: Base Excess 1.6 mmol/L (-2.0-3.0)
--- NOTE | 2024-02-04 09:08 | DVHPN2 ---
Assessment/Plan Assessment/Plan ICU progress note Subjective 53 yo M admitted for SOB, had hx of asthma, desaturating and intubated in ED, found to be hypertensive, after sedation became hypotensive. Seen pt duirng rounds sedation restarted overnight, c/w daily SAT. Peak pressure stable, metabolic alkalosis and respiratory acidosis. RR and TV decreased. secretions, started mucomyst. discontinue versed, start clonazepam PO. Objective Physical exam Intubated, sedated and mechanically ventilated PERRLA No response to pain S1 S2 RRR Mechanical breath sounds, improving Abdomen soft nontender No LE edema Lab WBC 21 K 5.6 Cr 1.2 trop 114 BNP 260 Vent AC/VC 500 22 50% 5 Drips propofol 10 fentanyl 275 versed 15 levophed [address] T wave abnormalities Imaging CXR clear, ETT R IJ TLC in place Echo wet read no TR or RV strain Assessment and plan Acute hypoxic hypercapnic respiratory failure Asthma exacerbation Type 2 [place] demand ischemia Hypertensive urgency distributive shock sedation related Substance use metabolic alkalosis respiratory acidosis continue with mechanical ventilation sedation to RAAS -3 titrate down fentanyl and versed, add on ketamine maintain SpO2 > 92% albuterol and ipatropium q4 flor solumedrol increased to 60 q8 empiric coverage with ceft and azithromycin hold antiHTN echo wnl maintain map >70 MRSA swab, bcx scx daily SAT SBT Lines R IJ TLC NGT [place] Maintain potassium of 4, phosphate of 3 and magnesium of 2 Diet tube feeding GI prophylaxis protonix DVT prophylaxi lovenox Condition critical Prognosis poor 66 minutes critical care time spent on this patient including evaluation, chart review, formulating plan and communication with team, excluding any procedures or point of care imaging Plan discussed with: Other My Orders Orders - IVET QUINN MD Procedure Category Date Status Time Clonazepam Tablet PHA 02/04/24 Logged (Klonopin Tablet) 09:15 Acetylcysteine PHA 02/04/24 Logged Inhalation 20% 14:00 Communication Order ORDERS 02/04/24 Transmitted 09:03 Date of Service: Feb 04, 2024 Billing Provider: IVET QUINN MD Common Visit Codes: [id number] CARE 30-74 MIN IVET QUINN MD Feb 04, 2024 09:08
[2024-02-04] MEDS ORDERED: clonazePAM 0.5 MG TAB PO PRN (09:15)
[2024-02-04] MEDS: POLYETHYLENE GLYCOL 17 GM PWDR PO SCH (09:53)
[2024-02-04] MEDS: ACETYLCYSTEINE 20%(200MG/ML) SOL 4ML NEB SCH (13:00)
--- NOTE | 2024-02-04 20:27 | DVHPN ---
DATE: 02/04/2024 PULMONARY FOLLOWUP The patient is doing better today, less wheezing. Peak pressures have decreased. The patient has mild secretions, no fevers. The patient remains on fentanyl and Diprivan. No hemodynamic support. PHYSICAL EXAMINATION: VITAL SIGNS: Afebrile, heart rate is 72, respiratory rate 24 with a ventilator, blood pressure 111/64, saturations 95 on 35% FIO2 NECK: Supple. No JVD. CHEST: Reveals bilateral minimal end expiratory wheezing. Air entry is improved from yesterday. ABDOMEN: Soft and nontender. Bowel sounds normal. EXTREMITIES: No edema. LAB WORK: WBC 11, hematocrit 39. Blood gases, pH 7.33, pCO2 53, pO2 73, bicarbonate 28, saturations 93%. On assist control, tidal volume 450, rate of 24, peep of 5, 35% FIO2. Serum chemistries were noted. CO2 33, BUN 29. Others were noted. BNP was 260 on 01/31/2024. Influenza A and B and COVID antigen test were negative. Cultures have all been unremarkable. IMPRESSION: Acute respiratory failure, asthma exacerbation, wheezing, hypoxia, history of non-Q-wave myocardial infarction and history of substance abuse. At this time, we will continue current. If stable, then can try to wean the patient in the morning. We will taper sedation, the patient's RN is concerned that time the patient is getting agitated, can use Versed as needed. We will continue on current dose of steroids, can continue med nebs. The patient is on albuterol and Atrovent. Continue Lovenox for DVT prophylaxis and Protonix for GI prophylaxis. Check an x-ray and blood gas in the morning, Zithromax and Rocephin. Dr. Miranda will resume Pulmonary Care in the morning. Critical time 37 minutes. MD TIFFANIE Obando/FLETCHER TID: [id number] RECEIPT: [id number]
[2024-02-05] VITALS (105 sets, daily range): BP systolic 102–177; BP diastolic 59–113; PULSE 62–115; RESP 11–25; TEMP 98.2–99.7; O2SAT 92–100
[2024-02-05 03:53] LABS: Basophils # (auto) 0 10 ^3/uL (0-0.2); Basophils % (auto) 0.1 % (0.0-2.0); Eosinophils # (auto) 0 10 ^3/uL (0-0.8); Hematocrit 40.2 % (41.0-53.0); Lymphocytes # (auto) 0.7 10 ^3/uL (0.4-5.4); Lymphocytes % (auto) 6.3 % (10.0-50.0); Mean Corpuscular Hgb Conc. 32.2 g/dL (32.0-36.0); Mean Corpuscular Volume 89.9 fL (80.0-100.0); Monocytes # (auto) 0.7 10 ^3/uL (0-1.3); Monocytes % (auto) 6.2 % (0.0-12.0); Neutrophils % (auto) 87.4 % (37.0-80.0); Platelet Count (auto) 243 10^3/uL (140-450); Red Blood Cells 4.47 10^6/uL (4.5-5.90); Red Cell Distribution Width 14.7 % (11.8-14.3); White Blood Cell 11.4 10^3/uL (4.4-10.8)
[2024-02-05 04:05] LABS: Anion Gap 3 (5-15); Sodium 144 mmol/L (136-145)
[2024-02-05 04:06] LABS: Calcium 9.6 mg/dL (8.7-10.4)
[2024-02-05 04:10] LABS: Carbon Dioxide 33 mmol/L (20-31); Chloride 108 mmol/L (98-107); Potassium 5.1 mmol/L (3.5-5.1)
[2024-02-05 04:11] LABS: BUN/Creatinine Ratio 36.6 (10.0-20.0); Magnesium 2.5 mg/dL (1.6-2.6)
[2024-02-05 04:13] LABS: Blood Urea Nitrogen 37 mg/dL (9-23); Glucose 128 mg/dL (74-106); Phosphorus 4.4 mg/dL (2.4-5.1)
--- NOTE | 2024-02-05 05:02 | DVH ---
CHEST RADIOGRAPH Indication: Intubated Technique: Single frontal view of the chest was obtained COMPARISON: XY CHEST PORTABLE on DOS: 02/04/24, XY CHEST PORTABLE on DOS: 02/03/24, XY CHEST PORTABLE on DOS: 08/05/23, XY CHEST PORTABLE on DOS: 02/04/24 FINDINGS: Lines and Tubes: Endotracheal tube, enteric catheter and right central venous catheter in satisfactor y position. Lungs: Congestion Pleura: No effusion. No pneumothorax. Cardiomediastinal contours: Unremarkable Bones: Unremarkable IMPRESSION: Lines and tubes in satisfactory position. No significant interval change.
[2024-02-05] MEDS: KETAMINE 50mg/ML 10ml Vial 10 ML ONE (06:12)
[2024-02-05 07:42] LABS: Base Excess 4.5 mmol/L (-2.0-3.0)
[2024-02-05 09:46] LABS: Base Excess 3.9 mmol/L (-2.0-3.0)
--- NOTE | 2024-02-05 15:07 | DVHPN2 ---
Assessment/Plan Assessment/Plan ICU progress note Subjective 53 yo M admitted for SOB, had hx of asthma, desaturating and intubated in ED, found to be hypertensive, after sedation became hypotensive. Seen pt duirng rounds dificult to titrate sedation. start oral meds for HTN, morphine, clonazepam. titrate down fentanyl and propofol. versed off, pushes PRN Objective Physical exam Intubated, sedated and mechanically ventilated PERRLA No response to pain S1 S2 RRR Mechanical breath sounds, improving Abdomen soft nontender No LE edema Lab WBC 21 K 5.6 Cr 1.2 trop 114 BNP 260 Vent AC/VC 500 22 50% 5 Drips propofol 10 fentanyl 275 versed 15 levophed [address] T wave abnormalities Imaging CXR clear, ETT R IJ TLC in place Echo wet read no TR or RV strain Assessment and plan Acute hypoxic hypercapnic respiratory failure Asthma exacerbation Type 2 [place] demand ischemia Hypertensive urgency distributive shock sedation related Substance use metabolic alkalosis respiratory acidosis continue with mechanical ventilation sedation to RAAS -3 titrate down fentanyl and versed, add on ketamine maintain SpO2 > 92% albuterol and ipatropium q4 flor solumedrol increased to 60 q8 empiric coverage with ceft and azithromycin resume HTN meds echo wnl maintain map >70 MRSA swab, bcx scx daily SAT SBT Lines R IJ TLC NGT [place] Maintain potassium of 4, phosphate of 3 and magnesium of 2 Diet tube feeding GI prophylaxis protonix DVT prophylaxi lovenox Condition critical Prognosis poor 88 minutes critical care time spent on this patient including evaluation, chart review, formulating plan and communication with team, excluding any procedures or point of care imaging Plan discussed with: Other My Orders Orders - IVET QUINN MD Procedure Category Date Status Time Ventilator Orders RT 02/05/24 Transmitted 08:23 Abg W/ Co-Ox RT 02/05/24 Logged 09:30 Precedex Drip Rass -1 PHA 02/05/24 Transmitted 15:15 Date of Service: Feb 05, 2024 Billing Provider: IVET QUINN MD Common Visit Codes: [id number] CARE 30-74 MIN, [id number] CARE-EACH +30MIN IVET QUINN MD Feb 05, 2024 15:07
--- NOTE | 2024-02-05 19:24 | DVHPN2 ---
Progress Note - Dictate Date Seen: Feb 05, 2024 Medical Necessity Reason Pt with a Central, PICC or Fol: Yes The following are medically ne: Mckeon Catheter Reason for mckeon catheter: Strict I&O Subjective Patient seen and examined at bedside. Sedated, intubated on mechanical ventilator. Overnight events reviewed. vital signs Vital Sign Date Time Temp Pulse Resp B/P (MAP) Pulse Ox O2 Delivery O2 Flow Rate FiO2 02/05/24 18:45 89 24 147/96 (113) 95 02/05/24 18:39 30 02/05/24 18:15 99.5 99.5 02/05/24 18:00 Mechanical Ventilator+ 02/03/24 08:00 40 Total Intake and Output 02/04/24 02/04/24 02/05/24 15:00 23:00 07:00 Intake Total 1083.594 ml 777.726 ml 1044.534 ml Output Total 950 ml 935 ml Balance 1083.594 ml -172.274 ml 109.534 ml medications Current Medications Medications Dose Ordered Sig/Compa Route Start Time Stop Time Status Last Admin Dose Admin Propofol 100 ml @ 2.73 mls/hr Q24H IV 01/31/24 19:15 02/05/24 18:10 24.57 MLS/HR Fentanyl Citrate 250 ml @ 2.5 mls/hr Q24H IV 01/31/24 19:30 02/05/24 16:51 20 MLS/HR Acetaminophen 1,000 mg [id number] PRN IV 01/31/24 20:00 01/31/24 20:01 Cancel Ceftriaxone Sodium 50 ml @ 100 mls/hr DAILY@09 IV 02/01/24 09:00 02/05/24 08:37 100 MLS/HR Azithromycin 250 ml @ 125 mls/hr DAILY IV 02/01/24 10:00 02/05/24 09:29 125 MLS/HR Pantoprazole Sodium 40 mg DAILY IV 02/01/24 10:00 02/05/24 09:28 40 MG Aspirin 81 mg DAILY PO 02/01/24 10:00 02/05/24 09:28 81 MG Atorvastatin Calcium 40 mg HS PO 02/01/24 22:00 02/04/24 21:52 40 MG Enoxaparin Sodium 40 mg DAILY SC 02/01/24 10:00 02/05/24 09:28 40 MG Ipratropium [facility] 0.5 mg Q4HR NEB 02/01/24 10:00 02/05/24 18:38 0.5 MG Albuterol 2.5 mg Q4HR NEB 02/01/24 10:45 02/05/24 18:38 2.5 MG Acetaminophen 650 mg Q6HP PRN [place] 02/02/24 00:00 02/02/24 00:44 650 MG Norepinephrine Bitartrate 250 ml @ 3.75 mls/hr Q24H IV 02/02/24 06:15 02/02/24 06:32 3.75 MLS/HR Ketamine HCl 500 mg/Sodium Chloride 500 ml @ 6.276 mls/ hr Q24H IV 02/02/24 08:30 02/05/24 14:02 56.484 MLS/HR Methylprednisolone Sodium Succinate 60 mg TID IV 02/03/24 14:04 02/05/24 13:24 60 MG Clonazepam 1 mg Q12HP PRN PO 02/04/24 09:15 Acetylcysteine 200 mg Q8HR NEB 02/04/24 14:00 02/06/24 13:59 02/05/24 13:58 200 MG Polyethylene Glycol 17 gm DAILY PO 02/04/24 10:00 02/05/24 09:28 17 GM Midazolam HCl 2 mg Q4HR PRN IV 02/04/24 15:45 Dexmedetomidine HCl 400 mcg/ Dextrose 100 ml @ 5.425 mls/ hr [id number] IV 02/05/24 15:15 Morphine Sulfate 15 mg Q8HR PO 02/05/24 22:00 Quetiapine Fumarate 25 mg BID PO 02/05/24 22:00 Losartan Potassium 12.5 mg DAILY PO 02/06/24 10:00 objective Gen.: Patient lying in bed in medical ICU. Sedated, intubated on mechanical ventilator. Head: Normocephalic, atraumatic. Eyes: PERRLA. Ears: Normal external anatomy. Throat: Endotracheal tube and orogastric tube in place. Neck: Supple, trachea midline. Chest: Transmitted breath sounds bilaterally. Decreased air entry bilaterally. Bilateral wheezing present. Bibasilar crackles. Cardiovascular: Positive S1, positive S2. Regular rate and rhythm. Abdomen: Positive bowel sounds in all 4 quadrants. Soft, nontender, nondistended. : Mckeon in place. Normal external genitalia. Rectal: Deferred. Skin: Warm, dry. Intact. Extremities: 2+ radial pulses bilaterally. No lower extremity edema. Neuro: Sedated. laboratory and microbiology Laboratory Tests 02/05/24 03:30 Test 02/05/24 03:30 Range/Units Serum Glucose 128 H 74-106 mg/dL Assessment/Plan Impression: Acute hypoxic respiratory failure On mechanical ventilator Asthma exacerbation Likely community-acquired pneumonia Likely NSTEMI type 2 Acute sepsis Recurrent hyperkalemia Overweight, BMI 28.8 Events: Remains on vent support On AC mode; RR 24, VT 500, PEEP 5, FiO2 of 35%. ABG reviewed, notable for acidemia. CXR demonstrates devices in place. Pulmonary congestion. No pneumothorax. No pleural effusion. Sedated on Propofol, Fentanyl, Ketamine. Pt did not tolerate decrease in sedation - developed tachycardia and tachypnea. Tube feeds for nutritional support. Off pressors, hemodynamically stable. Continue antibiotics IV steroids Continue bronchodilators Blood pressure control. Monitor for withdrawal. Taper sedation as tolerated CPAP in the AM with PS 8, PEEP of 5. OK to increase PS to max 20 cmH2O to achieve tidal volume 400-450 mL. Labs and imaging reviewed. Rest of plan as noted below. Plan: s/p intubation on mechanical ventilator. On AC mode; RR 24, VT 500, PEEP 5, FiO2 of 35%. Titrate FIO2 to keep O2 saturation above 90%. VAP bundle. Daily ABG and CXR while intubated Sedate for ventilator synchrony Continue bronchodilators. IV steroids Continue antibiotics. F/u cultures. Pressors if necessary for hemodynamic support Titrate to keep mean arterial pressure greater than 65 mmHg. Monitor renal function Monitor electrolytes. Supplement as necessary. Monitor ins and outs. Maintain euvolemia. GI prophylaxis - Protonix. DVT prophylaxis - Lovenox. Prognosis: Poor given patient's multiple co-morbidities. Condition: Critical Rest of plan per hospitalist and other consultants. A total of 35 minutes of critical care time was spent reviewing the patient record, examining the patient, making a diagnostic and therapeutic plan, discussing this plan with the medical personnel, following up on diagnostic studies and following the patient for clinical stability excluding any and all procedures. At least 50% of this time was spent in direct, [id number] contact. Thank you Dr. Jim Ojeda MD, for allowing me to participate in this patient's care. Further recommendations will depend on the patient's clinical course. Please do not hesitate to contact me if you have any questions or concerns. This medical document was created using an electronic medical record system with [employer] dictation system. Although these documentations are being carefully reviewed, there may still be some phonetic and typographical changes. The errors are purely typographical, due to imperfection on the software program, and do not reflect any compromise in the patient's medical care. Dietary Evaluation Review Comments: 1) Increase Jevity 1.2 to 55ml/hr x 24hr goal rate as tolerated to meet estimated needs 2) Advance pt diet when medicall feasible 3) Continue current plan of care Expected Outcomes/Goals: 1) Pt to receive adequate nutrition support within 7 days of NPO status 2) Pt diet to advance 3) F/U in 2-3 days Plan discussed with: Other (IVANA Lambert) Critical Care Time(min): 35 WARREN POWELL MD Feb 05, 2024 19:24
[2024-02-05] MEDS: QUEtiapine FUMARATE 25 MG TAB PO SCH (21:54)
[2024-02-05] MEDS: MORPHINE SULF 15mg ER tab PO SCH (21:57)
[2024-02-05] MEDS: HYDROcodone-ACET 10/325MG TAB PO ONE (23:08)
[2024-02-06] VITALS (106 sets, daily range): BP systolic 81–184; BP diastolic 59–121; PULSE 62–134; RESP 12–30; TEMP 98.8–100.2; O2SAT 92–100
[2024-02-06 04:27] LABS: Basophils # (auto) 0 10 ^3/uL (0-0.2); Basophils % (auto) 0.2 % (0.0-2.0); Eosinophils # (auto) 0 10 ^3/uL (0-0.8); Hematocrit 42.7 % (41.0-53.0); Hemoglobin 13.8 g/dL (13.5-17.5); Lymphocytes # (auto) 1.1 10 ^3/uL (0.4-5.4); Lymphocytes % (auto) 9.4 % (10.0-50.0); Mean Corpuscular Hgb Conc. 32.3 g/dL (32.0-36.0); Mean Corpuscular Volume 89.9 fL (80.0-100.0); Monocytes # (auto) 0.8 10 ^3/uL (0-1.3); Monocytes % (auto) 7.3 % (0.0-12.0); Neutrophils # (auto) 9.4 10 ^3/uL (1.6-8.6); Neutrophils % (auto) 83.1 % (37.0-80.0); Platelet Count (auto) 238 10^3/uL (140-450); Red Blood Cells 4.75 10^6/uL (4.5-5.90); Red Cell Distribution Width 14.7 % (11.8-14.3); White Blood Cell 11.3 10^3/uL (4.4-10.8)
[2024-02-06 04:42] LABS: Alanine Aminotransferase 20 U/L (7-40); Albumin 3.4 g/dL (3.2-4.8); Alkaline Phosphatase 61 U/L (46-116); Anion Gap 4 (5-15); Aspartate Aminotransferase 16 U/L (13-40); Calcium 9.5 mg/dL (8.7-10.4); Magnesium 2.2 mg/dL (1.6-2.6); Potassium 4.9 mmol/L (3.5-5.1)
[2024-02-06 04:43] LABS: Phosphorus 3.4 mg/dL (2.4-5.1)
[2024-02-06 04:44] LABS: Bilirubin, Total 0.2 mg/dL (0.2-1.0); Blood Urea Nitrogen 36 mg/dL (9-23); Carbon Dioxide 33 mmol/L (20-31); Chloride 108 mmol/L (98-107); Glucose 123 mg/dL (74-106); Sodium 145 mmol/L (136-145); Total Protein 5.5 g/dL (5.7-8.2)
--- NOTE | 2024-02-06 04:51 | DVH ---
CHEST RADIOGRAPH Indication: INTUBATED Technique: Single frontal view of the chest was obtained COMPARISON: XY CHEST PORTABLE on DOS: 02/05/24, XY CHEST PORTABLE on DOS: 02/04/24, XY CHEST PORTABLE on DOS: 02/03/24, XY CHEST PORTABLE on DOS: 02/05/24 FINDINGS: Lines and Tubes: Endotracheal tube, enteric catheter and right central venous catheter in satisfactor y position. Lungs: Congestion Pleura: No effusion. No pneumothorax. Cardiomediastinal contours: Unremarkable Bones: Unremarkable IMPRESSION: Lines and tubes in satisfactory position. No significant interval change.
[2024-02-06 07:23] LABS: Base Excess 5.6 mmol/L (-2.0-3.0)
[2024-02-06] MEDS: FUROSEMIDE 40 MG/4 ML VIAL IV ONE (10:20)
--- NOTE | 2024-02-06 13:04 | DVH ---
CHEST RADIOGRAPH Indication: ng tube replaced Technique: Single frontal view of the chest was obtained COMPARISON: XY CHEST PORTABLE on DOS: 02/06/24, XY CHEST PORTABLE on DOS: 02/05/24, XY CHEST PORTABLE on DOS: 02/04/24 FINDINGS: Lines and Tubes: Endotracheal tube, enteric catheter and right central venous catheter in satisfactor y position. Lungs: Right lower lobe airspace disease. Pleura: No effusion. No pneumothorax. Cardiomediastinal contours: Unremarkable Bones: Unremarkable IMPRESSION: Lines and tubes in satisfactory position. No significant interval change.
[2024-02-06] MEDS: LOSARTAN POTASSIUM 25 MG TAB PO SCH (13:40)
--- NOTE | 2024-02-06 14:40 | DVHPN2 ---
Assessment/Plan Assessment/Plan ICU progress note Subjective 53 yo M admitted for SOB, had hx of asthma, desaturating and intubated in ED, found to be hypertensive, after sedation became hypotensive. Seen pt prasadirng rounds titrating sedation, now following comands, failing CPAP tachypnea and increasing peak pressure, will attempt with long acting oral meds. addtion of methadone, klonazepam, seroquel. keep ketamine and precedex, go down on prop and fent Objective Physical exam Intubated, sedated and mechanically ventilated PERRLA following commands S1 S2 RRR Mechanical breath sounds, improving Abdomen soft nontender No LE edema Lab WBC 21 K 5.6 Cr 1.2 trop 114 BNP 260 Vent AC/VC 500 22 50% 5 Drips propofol 10 fentanyl 275 versed 15 levophed [address] T wave abnormalities Imaging CXR clear, ETT R IJ TLC in place Echo wet read no TR or RV strain Assessment and plan Acute hypoxic hypercapnic respiratory failure Asthma exacerbation Type 2 [place] demand ischemia Hypertensive urgency distributive shock sedation related Substance use metabolic alkalosis respiratory acidosis continue with mechanical ventilation sedation to RAAS -3 titrate down fentanyl and versed, keep ketamine and preedex maintain SpO2 > 92% albuterol and ipatropium q4 flor solumedrol increased to 60 q8 empiric coverage with ceft and azithromycin resume HTN meds echo wnl maintain map >70 MRSA swab, bcx scx daily SAT SBT Lines R IJ TLC NGT [place] Maintain potassium of 4, phosphate of 3 and magnesium of 2 Diet tube feeding GI prophylaxis protonix DVT prophylaxi lovenox Condition critical Prognosis poor 79 minutes critical care time spent on this patient including evaluation, chart review, formulating plan and communication with team, excluding any procedures or point of care imaging Plan discussed with: Patient My Orders Orders - IVET QUINN MD Procedure Category Date Status Time D5w 5% (Dextrose 5%) PHA 02/05/24 In Process W/Dexmedetomidine 15:15 Morphine Extended PHA 02/05/24 In Process Release Tab (Oramorph 22:00 Quetiapine Fumarate PHA 02/05/24 In Process Tablet (Seroquel Tab 22:00 Losartan Tablet PHA 02/06/24 In Process (Cozaar Tablet) 10:00 Communication Order ORDERS 02/05/24 Transmitted 14:18 Cpap Trial For Am ORDERS 02/06/24 Transmitted 04:00 Abg W/ Co-Ox RT 02/06/24 Logged 06:00 Cpap/Sed Vacation Med ORDERS 02/06/24 Transmitted Weaning 07:52 Chest Portable XY 02/06/24 Resulted 12:32 Methadone Hcl Tablet PHA 02/07/24 Verified (Methadone Hcl Tabl 10:00 Methadone Hcl Tablet PHA 02/06/24 Verified (Methadone Hcl Tabl 14:45 Electrocardigram EKG 02/06/24 Verified 14:36 Date of Service: Feb 06, 2024 Billing Provider: IVET QUINN MD Common Visit Codes: [id number] CARE 30-74 MIN, [id number] CARE-EACH +30MIN IVET QUINN MD Feb 06, 2024 14:40
[2024-02-06] MEDS: METHADONE HCL 10 MG TAB PO ONE (17:21)
--- NOTE | 2024-02-06 21:15 | DVHPN2 ---
Progress Note - Dictate Date Seen: Feb 06, 2024 Medical Necessity Reason Pt with a Central, PICC or Fol: Yes The following are medically ne: Mckeon Catheter Reason for mckeon catheter: Strict I&O Subjective Patient seen and examined at bedside. Sedated, intubated on mechanical ventilator. Overnight events reviewed. vital signs Vital Sign Date Time Temp Pulse Resp B/P (MAP) Pulse Ox O2 Delivery O2 Flow Rate FiO2 02/06/24 20:34 140/84 02/06/24 20:00 90 24 95 35 02/06/24 18:30 99.5 99.5 02/06/24 18:00 Mechanical Ventilator+ Total Intake and Output 02/05/24 02/05/24 02/06/24 15:00 23:00 07:00 Intake Total 1247.438 ml 1066.885 ml 892.769 ml Output Total 975 ml 1175 ml Balance 1247.438 ml 91.885 ml -282.231 ml medications Current Medications Medications Dose Ordered Sig/Compa Route Start Time Stop Time Status Last Admin Dose Admin Propofol 100 ml @ 2.73 mls/hr Q24H IV 01/31/24 19:15 02/06/24 17:22 2.73 MLS/HR Fentanyl Citrate 250 ml @ 2.5 mls/hr Q24H IV 01/31/24 19:30 02/06/24 06:16 10 MLS/HR Acetaminophen 1,000 mg [id number] PRN IV 01/31/24 20:00 01/31/24 20:01 Cancel Ceftriaxone Sodium 50 ml @ 100 mls/hr DAILY@09 IV 02/01/24 09:00 02/06/24 09:56 100 MLS/HR Azithromycin 250 ml @ 125 mls/hr DAILY IV 02/01/24 10:00 02/06/24 10:20 125 MLS/HR Pantoprazole Sodium 40 mg DAILY IV 02/01/24 10:00 02/06/24 09:46 40 MG Aspirin 81 mg DAILY PO 02/01/24 10:00 02/06/24 13:40 81 MG Atorvastatin Calcium 40 mg HS PO 02/01/24 22:00 02/05/24 21:54 40 MG Enoxaparin Sodium 40 mg DAILY SC 02/01/24 10:00 02/06/24 09:47 40 MG Ipratropium [place] 0.5 mg Q4HR NEB 02/01/24 10:00 02/06/24 18:03 0.5 MG Albuterol 2.5 mg Q4HR NEB 02/01/24 10:45 02/06/24 18:04 2.5 MG Acetaminophen 650 mg Q6HP PRN [place] 02/02/24 00:00 02/02/24 00:44 650 MG Norepinephrine Bitartrate 250 ml @ 3.75 mls/hr Q24H IV 02/02/24 06:15 02/02/24 06:32 3.75 MLS/HR Ketamine HCl 500 mg/Sodium Chloride 500 ml @ 6.276 mls/ hr Q24H IV 02/02/24 08:30 02/06/24 09:00 28.242 MLS/HR Methylprednisolone Sodium Succinate 60 mg TID IV 02/03/24 14:04 02/06/24 13:44 60 MG Clonazepam 1 mg Q12HP PRN PO 02/04/24 09:15 Polyethylene Glycol 17 gm DAILY PO 02/04/24 10:00 02/06/24 10:00 17 GM Midazolam HCl 2 mg Q4HR PRN IV 02/04/24 15:45 Dexmedetomidine HCl 400 mcg/ Dextrose 100 ml @ 5.425 mls/ hr [id number] IV 02/05/24 15:15 02/06/24 20:34 5.425 MLS/HR Quetiapine Fumarate 25 mg BID PO 02/05/24 22:00 02/06/24 13:40 25 MG Losartan Potassium 12.5 mg DAILY PO 02/06/24 10:00 02/06/24 13:40 12.5 MG Methadone HCl 10 mg DAILY PO 02/07/24 10:00 objective Gen.: Patient lying in bed in medical ICU. Sedated, intubated on mechanical ventilator. Head: Normocephalic, atraumatic. Eyes: PERRLA. Ears: Normal external anatomy. Throat: Endotracheal tube and orogastric tube in place. Neck: Supple, trachea midline. Chest: Transmitted breath sounds bilaterally. Decreased air entry bilaterally. Bilateral wheezing present. Bibasilar crackles. Cardiovascular: Positive S1, positive S2. Regular rate and rhythm. Abdomen: Positive bowel sounds in all 4 quadrants. Soft, nontender, nondistended. : Mckeon in place. Normal external genitalia. Rectal: Deferred. Skin: Warm, dry. Intact. Extremities: 2+ radial pulses bilaterally. No lower extremity edema. Neuro: Sedated. laboratory and microbiology Laboratory Tests 02/06/24 03:51 Test 02/06/24 03:51 Range/Units Serum Glucose 123 H 74-106 mg/dL Assessment/Plan Impression: Acute hypoxic respiratory failure On mechanical ventilator Asthma exacerbation Likely community-acquired pneumonia Likely NSTEMI type 2 Acute sepsis Recurrent hyperkalemia Overweight, BMI 28.8 Events: Remains on vent support On AC mode; RR 24, VT 500, PEEP 5, FiO2 of 35%. ABG reviewed, compensated. CXR demonstrates devices in place. Right lower lobe airspace disease. No pneumothorax. No pleural effusion. Sedated on Propofol, Fentanyl, Ketamine. On Precedex drip. Tube feeds for nutritional support. Off pressors, hemodynamically stable. Continue antibiotics IV steroids Continue bronchodilators Blood pressure control. Monitor for withdrawal. Taper sedation as tolerated. Labs and imaging reviewed. Rest of plan as noted below. Plan: s/p intubation on mechanical ventilator. On AC mode; RR 24, VT 500, PEEP 5, FiO2 of 35%. Titrate FIO2 to keep O2 saturation above 90%. VAP bundle. Daily ABG and CXR while intubated Sedate for ventilator synchrony Continue bronchodilators. IV steroids Continue antibiotics. F/u cultures. Pressors if necessary for hemodynamic support Titrate to keep mean arterial pressure greater than 65 mmHg. Monitor renal function Monitor electrolytes. Supplement as necessary. Monitor ins and outs. Maintain euvolemia. GI prophylaxis - Protonix. DVT prophylaxis - Lovenox. Prognosis: Poor given patient's multiple co-morbidities. Condition: Critical Rest of plan per hospitalist and other consultants. A total of 35 minutes of critical care time was spent reviewing the patient record, examining the patient, making a diagnostic and therapeutic plan, discussing this plan with the medical personnel, following up on diagnostic studies and following the patient for clinical stability excluding any and all procedures. At least 50% of this time was spent in direct, [id number] contact. Thank you Dr. Jim Ojeda MD, for allowing me to participate in this patient's care. Further recommendations will depend on the patient's clinical course. Please do not hesitate to contact me if you have any questions or concerns. This medical document was created using an electronic medical record system with [employer] dictation system. Although these documentations are being carefully reviewed, there may still be some phonetic and typographical changes. The errors are purely typographical, due to imperfection on the software program, and do not reflect any compromise in the patient's medical care. Dietary Evaluation Review Comments: 1) Increase Jevity 1.2 to 55ml/hr x 24hr goal rate as tolerated to meet estimated needs 2) Advance pt diet when medicall feasible 3) Continue current plan of care Expected Outcomes/Goals: 1) Pt to receive adequate nutrition support within 7 days of NPO status 2) Pt diet to advance 3) F/U in 2-3 days Plan discussed with: Other (RN Sonja Pineda) Critical Care Time(min): 35 WARREN POWELL MD Feb 06, 2024 21:15
[2024-02-07] VITALS (118 sets, daily range): BP systolic 109–147; BP diastolic 59–99; PULSE 57–151; RESP 19–26; TEMP 97.9–98.8; O2SAT 57–100
[2024-02-07 03:35] LABS: Chloride 107 mmol/L (98-107); Potassium 4.1 mmol/L (3.5-5.1); Sodium 145 mmol/L (136-145)
[2024-02-07 03:36] LABS: Anion Gap 4 (5-15); Calcium 9.5 mg/dL (8.7-10.4)
[2024-02-07 03:41] LABS: BUN/Creatinine Ratio 46.8 (10.0-20.0)
[2024-02-07 03:45] LABS: Blood Urea Nitrogen 36 mg/dL (9-23); Carbon Dioxide 34 mmol/L (20-31); Glucose 121 mg/dL (74-106)
--- NOTE | 2024-02-07 04:16 | DVH ---
CHEST RADIOGRAPH Indication: ARF, INTUBATED Technique: Single frontal view of the chest was obtained Comparison: XY CHEST PORTABLE on DOS: 02/06/24, XY CHEST PORTABLE on DOS: 02/06/24, XY CHEST PORTABLE on DOS: 02/05/24, XY CHEST PORTABLE on DOS: 02/04/24, XY CHEST PORTABLE on DOS: 02/03/24, XY CHEST P ORTABLE on DOS: 02/06/24 FINDINGS: Lines and Tubes: Endotracheal tube, enteric catheter and right central venous catheter in satisfactor y position. Lungs: Right lower lobe airspace disease. Pleura: No effusion. No pneumothorax. Cardiomediastinal contours: Unremarkable Bones: Unremarkable IMPRESSION: 1. Lines and tubes in satisfactory position. No significant interval change.
[2024-02-07 08:23] LABS: Base Excess 6.2 mmol/L (-2.0-3.0)
[2024-02-07] MEDS: FUROSEMIDE 40 MG/4 ML VIAL IV ONE (09:09)
[2024-02-07] MEDS: clonazePAM 0.5 MG TAB PO SCH ×2 (10:16→22:27)
[2024-02-07] MEDS: METHADONE HCL 10 MG TAB PO SCH (10:17)
--- NOTE | 2024-02-07 15:45 | DVHPN2 ---
Assessment/Plan Assessment/Plan ICU progress note Subjective 53 yo M admitted for SOB, had hx of asthma, desaturating and intubated in ED, found to be hypertensive, after sedation became hypotensive. Seen pt duirng rounds not overbreathing vent, will continue titrating sedation, addition of oral meds, c/w cpap trial Objective Physical exam Intubated, sedated and mechanically ventilated PERRLA following commands S1 S2 RRR Mechanical breath sounds, improving Abdomen soft nontender No LE edema Lab WBC 21 K 5.6 Cr 1.2 trop 114 BNP 260 Vent AC/VC 500 22 50% 5 Drips propofol 10 fentanyl 275 versed 15 levophed [address] T wave abnormalities Imaging CXR clear, ETT R IJ TLC in place Echo wet read no TR or RV strain Assessment and plan Acute hypoxic hypercapnic respiratory failure Asthma exacerbation Type 2 [place] demand ischemia Hypertensive urgency distributive shock sedation related Substance use metabolic alkalosis respiratory acidosis continue with mechanical ventilation sedation to RAAS -1 titrate down fentanyl and versed, keep ketamine and preedex maintain SpO2 > 92% albuterol and ipatropium q4 flor solumedrol increased to 60 q8 empiric coverage with ceft and azithromycin resume HTN meds echo wnl maintain map >70 MRSA swab, bcx scx daily SAT SBT methadone, klonazepam, seroquel prn versed push Lines R IJ TLC NGT [place] Maintain potassium of 4, phosphate of 3 and magnesium of 2 Diet tube feeding GI prophylaxis protonix DVT prophylaxi lovenox Condition critical Prognosis poor 72 minutes critical care time spent on this patient including evaluation, chart review, formulating plan and communication with team, excluding any procedures or point of care imaging Plan discussed with: Patient My Orders Orders - IVET QUINN MD Procedure Category Date Status Time Clonazepam Tablet PHA 02/07/24 In Process (Klonopin Tablet) 10:00 Communication Order ORDERS 02/07/24 Transmitted 11:56 Date of Service: Feb 07, 2024 Billing Provider: IVET QUINN MD Common Visit Codes: [id number] CARE 30-74 MIN IVET QUINN MD Feb 07, 2024 15:45
[2024-02-07] MEDS: Jevity 1.2 Cal/Fiber 1 Liter GT SCH (16:00)
[2024-02-07] MEDS: MIDAZOLAM HCL 2MG/2ML 2ml VIAL (1mg/ml) IV PRN (20:26)
--- NOTE | 2024-02-07 22:46 | DVHPN2 ---
Progress Note - Dictate Date Seen: Feb 07, 2024 Medical Necessity Reason Pt with a Central, PICC or Fol: Yes The following are medically ne: Mckeon Catheter Reason for mckeon catheter: Strict I&O Subjective Patient seen and examined at bedside. Sedated, intubated on mechanical ventilator. Overnight events reviewed. vital signs Vital Sign Date Time Temp Pulse Resp B/P (MAP) Pulse Ox O2 Delivery O2 Flow Rate FiO2 02/07/24 21:58 83 24 119/72 (88) 96 50 02/07/24 20:01 98.8 98.8 02/07/24 18:19 Mechanical Ventilator+ Total Intake and Output 02/06/24 02/06/24 02/07/24 15:00 23:00 07:00 Intake Total 795.748 ml 723.9055 ml 767.395 ml Output Total 3550 ml 1100 ml Balance 795.748 ml -2826.0945 ml -332.605 ml medications Current Medications Medications Dose Ordered Sig/Compa Route Start Time Stop Time Status Last Admin Dose Admin Fentanyl Citrate 250 ml @ 2.5 mls/hr Q24H IV 01/31/24 19:30 02/07/24 00:48 17.5 MLS/HR Acetaminophen 1,000 mg [id number] PRN IV 01/31/24 20:00 01/31/24 20:01 Cancel Ceftriaxone Sodium 50 ml @ 100 mls/hr DAILY@09 IV 02/01/24 09:00 02/07/24 09:05 100 MLS/HR Azithromycin 250 ml @ 125 mls/hr DAILY IV 02/01/24 10:00 02/07/24 10:19 125 MLS/HR Pantoprazole Sodium 40 mg DAILY IV 02/01/24 10:00 02/07/24 10:15 40 MG Aspirin 81 mg DAILY PO 02/01/24 10:00 02/07/24 10:16 81 MG Atorvastatin Calcium 40 mg HS PO 02/01/24 22:00 02/07/24 22:27 40 MG Enoxaparin Sodium 40 mg DAILY SC 02/01/24 10:00 02/07/24 10:17 40 MG Ipratropium [place] 0.5 mg Q4HR NEB 02/01/24 10:00 02/07/24 21:58 0.5 MG Albuterol 2.5 mg Q4HR NEB 02/01/24 10:45 02/07/24 21:58 2.5 MG Acetaminophen 650 mg Q6HP PRN [place] 02/02/24 00:00 02/02/24 00:44 650 MG Norepinephrine Bitartrate 250 ml @ 3.75 mls/hr Q24H IV 02/02/24 06:15 02/02/24 06:32 3.75 MLS/HR Ketamine HCl 500 mg/Sodium Chloride 500 ml @ 6.276 mls/ hr Q24H IV 02/02/24 08:30 02/07/24 17:54 56.484 MLS/HR Methylprednisolone Sodium Succinate 60 mg TID IV 02/03/24 14:04 02/07/24 22:17 60 MG Polyethylene Glycol 17 gm DAILY PO 02/04/24 10:00 02/07/24 10:15 17 GM Midazolam HCl 2 mg Q4HR PRN IV 02/04/24 15:45 02/07/24 20:26 2 MG Dexmedetomidine HCl 400 mcg/ Dextrose 100 ml @ 5.425 mls/ hr [id number] IV 02/05/24 15:15 02/07/24 17:58 18.988 MLS/HR Quetiapine Fumarate 25 mg BID PO 02/05/24 22:00 02/07/24 22:27 25 MG Losartan Potassium 12.5 mg DAILY PO 02/06/24 10:00 02/07/24 10:18 12.5 MG Methadone HCl 10 mg DAILY PO 02/07/24 10:00 02/07/24 10:17 10 MG Enteral Nutritional Formula 1,000 ml 50ML/HR GT 02/07/24 16:00 02/07/24 16:00 1,000 ML Clonazepam 1 mg Q12HR PO 02/07/24 22:00 02/07/24 22:27 1 MG objective Gen.: Patient lying in bed in medical ICU. Sedated, intubated on mechanical ventilator. Head: Normocephalic, atraumatic. Eyes: PERRLA. Ears: Normal external anatomy. Throat: Endotracheal tube and orogastric tube in place. Neck: Supple, trachea midline. Chest: Transmitted breath sounds bilaterally. Decreased air entry bilaterally. Bilateral wheezing present. Bibasilar crackles. Cardiovascular: Positive S1, positive S2. Regular rate and rhythm. Abdomen: Positive bowel sounds in all 4 quadrants. Soft, nontender, nondistended. : Mckeon in place. Normal external genitalia. Rectal: Deferred. Skin: Warm, dry. Intact. Extremities: 2+ radial pulses bilaterally. No lower extremity edema. Neuro: Sedated. laboratory and microbiology Laboratory Tests 02/07/24 02:55 02/06/24 03:51 Test 02/07/24 02:55 Range/Units Serum Glucose 121 H 74-106 mg/dL Assessment/Plan Impression: Acute hypoxic respiratory failure On mechanical ventilator Asthma exacerbation Likely community-acquired pneumonia Likely NSTEMI type 2 Acute sepsis Recurrent hyperkalemia Overweight, BMI 28.8 Events: Remains on vent support On AC mode; RR 24, VT 550, PEEP 5, FiO2 of 50%. ABG reviewed, notable for alkalemia. CXR demonstrates devices in place. Right lower lobe airspace disease. No pneumothorax. No pleural effusion. Sedated on Propofol, Fentanyl, Ketamine. On Precedex drip. Tube feeds for nutritional support. Off pressors, hemodynamically stable. Continue antibiotics IV steroids Continue bronchodilators Blood pressure control. Monitor for withdrawal. Taper sedation per protocol. When decreased this AM, patient became tachypneic and hypoxic. Labs and imaging reviewed. Rest of plan as noted below. Plan: s/p intubation on mechanical ventilator. On AC mode; RR 24, VT 550, PEEP 5, FiO2 of 50%. Titrate FIO2 to keep O2 saturation above 90%. VAP bundle. Daily ABG and CXR while intubated Sedate for ventilator synchrony Continue bronchodilators. IV steroids Continue antibiotics. F/u cultures. Pressors if necessary for hemodynamic support Titrate to keep mean arterial pressure greater than 65 mmHg. Monitor renal function Monitor electrolytes. Supplement as necessary. Monitor ins and outs. Maintain euvolemia. GI prophylaxis - Protonix. DVT prophylaxis - Lovenox. Prognosis: Poor given patient's multiple co-morbidities. Condition: Critical Rest of plan per hospitalist and other consultants. A total of 35 minutes of critical care time was spent reviewing the patient record, examining the patient, making a diagnostic and therapeutic plan, discussing this plan with the medical personnel, following up on diagnostic studies and following the patient for clinical stability excluding any and all procedures. At least 50% of this time was spent in direct, [id number] contact. Thank you Dr. Jim Ojeda MD, for allowing me to participate in this patient's care. Further recommendations will depend on the patient's clinical course. Please do not hesitate to contact me if you have any questions or concerns. This medical document was created using an electronic medical record system with [employer] dictation system. Although these documentations are being carefully reviewed, there may still be some phonetic and typographical changes. The errors are purely typographical, due to imperfection on the software program, and do not reflect any compromise in the patient's medical care. Dietary Evaluation Review Comments: 1) Increase Jevity 1.2 to 55ml/hr x 24hr goal rate as tolerated to meet estimated needs 2) Advance pt diet when medicall feasible 3) Continue current plan of care Expected Outcomes/Goals: 1) Pt to receive adequate nutrition support within 7 days of NPO status 2) Pt diet to advance 3) F/U in 2-3 days Plan discussed with: Other (IVANA Elena/Dr. Ojeda) Critical Care Time(min): 35 WARREN POWELL MD Feb 07, 2024 22:46
[2024-02-08] VITALS (115 sets, daily range): BP systolic 69–146; BP diastolic 42–115; PULSE 63–156; RESP 8–26; TEMP 98.4–99.7; O2SAT 93–100
--- NOTE | 2024-02-08 01:07 | DVH ---
CHEST RADIOGRAPH Indication: check central line placement Technique: Single frontal view of the chest was obtained Comparison: XY CHEST PORTABLE on DOS: 02/07/24, XY CHEST PORTABLE on DOS: 02/06/24, XY CHEST PORTABLE on DOS: 02/06/24 Findings/ IMPRESSION: Endotracheal tube projects 8 cm superior to the augusto. Enteric tube projects below the GE junction w ithout visualization of catheter tip. Right IJ CVC projects terminating in the SVC. Right basilar opa cification which may be from pleural effusion and/ or developing airspace disease. No pneumothorax. S mall left-sided pleural effusion.
[2024-02-08] MEDS: MIDAZOLAM HCL 2MG/2ML 2ml VIAL (1mg/ml) IV PRN (02:25)
[2024-02-08] MEDS: MIDAZOLAM DRIP 50 mg/50mL 50 ML IV ONE (03:55)
[2024-02-08] MEDS: MIDAZOLAM DRIP 50 mg/50mL 50 ML IV SCH (03:55)
[2024-02-08] MEDS: PHENYLEPHRINE IV 250 ML IV ONE (04:13)
[2024-02-08 04:15] LABS: Basophils # (auto) 0 10 ^3/uL (0-0.2); Basophils % (auto) 0.3 % (0.0-2.0); Eosinophils # (auto) 0.1 10 ^3/uL (0-0.8); Eosinophils % (auto) 0.4 % (0.0-7.0); Hematocrit 46.7 % (41.0-53.0); Hemoglobin 14.9 g/dL (13.5-17.5); Lymphocytes # (auto) 1.1 10 ^3/uL (0.4-5.4); Mean Corpuscular Hemoglobin 28.5 pg (28.0-32.0); Mean Corpuscular Hgb Conc. 31.9 g/dL (32.0-36.0); Mean Corpuscular Volume 89.2 fL (80.0-100.0); Monocytes % (auto) 6.9 % (0.0-12.0); Neutrophils # (auto) 11.6 10 ^3/uL (1.6-8.6); Neutrophils % (auto) 84.4 % (37.0-80.0); Nucleated Red Blood Cells % 0.1 %; Platelet Count (auto) 246 10^3/uL (140-450); Red Blood Cells 5.23 10^6/uL (4.5-5.90); Red Cell Distribution Width 14.5 % (11.8-14.3); White Blood Cell 13.8 10^3/uL (4.4-10.8)
[2024-02-08 04:35] LABS: Anion Gap 4 (5-15); Chloride 107 mmol/L (98-107); Potassium 5.1 mmol/L (3.5-5.1); Sodium 145 mmol/L (136-145)
[2024-02-08 04:41] LABS: BUN/Creatinine Ratio 32.4 (10.0-20.0)
[2024-02-08 04:42] LABS: Blood Urea Nitrogen 33 mg/dL (9-23); Calcium 8.2 mg/dL (8.7-10.4); Carbon Dioxide 34 mmol/L (20-31); Glucose 124 mg/dL (74-106)
[2024-02-08] MEDS: PHENYLEPHRINE IV 250 ML IV SCH (04:45)
[2024-02-08] MEDS: ADENOSINE 6 MG/2 ML INJ IV ONE ×5 (05:00→05:43)
--- NOTE | 2024-02-08 05:03 | DVH ---
CHEST RADIOGRAPH Indication: ARF, INTUBATED Technique: Single frontal view of the chest was obtained Comparison: XY CHEST PORTABLE on DOS: 02/08/24 FINDINGS: Lines and Tubes: The endotracheal tube terminates 5.2 cm above the augusto. The right central venous c atheter terminates in the superior vena cava. The enteric tube courses below the left hemidiaphragm a nd the tip extends outside the field of view. Lungs: Bibasilar opacities similar to the prior study. Pleura: Right pleural effusion. No pneumothorax. Cardiomediastinal contours: Unremarkable Bones: No acute osseous abnormality. IMPRESSION: 1. Bibasalar opacities similar to the prior study. 2. Small pleural effusion.
[2024-02-08] MEDS: AMIODARONE BOLUS KIT 100 ML IV ONE ×2 (05:15→05:46)
[2024-02-08] MEDS: AMIODARONE 450mg/250ml AE 250 ML IV ONE (05:17)
[2024-02-08] MEDS: AMIODARONE 450mg/250ml AE 250 ML IV SCH ×2 (05:47→06:12)
[2024-02-08] MEDS: KETAMINE 50mg/ML 10ml Vial 10 ML ONE (05:48)
[2024-02-08 07:21] LABS: Base Excess 3.6 mmol/L (-2.0-3.0)
[2024-02-08] MEDS: LEVALBUTEROL HCL 1.25 MG/3 ML NEB ONE ×2 (09:14→11:58)
[2024-02-08] MEDS: FUROSEMIDE 40 MG/4 ML VIAL IV ONE (10:19)
[2024-02-08] MEDS: PROPOFOL 100 ML IV SCH (10:29)
[2024-02-08] MEDS: ALBUTEROL SULF 2.5 MG/0.5ML(0.5%) NEB SOLN HHN SCH (12:00)
--- NOTE | 2024-02-08 12:30 | DVHPN2 ---
Assessment/Plan Assessment/Plan ICU progress note Subjective 53 yo M admitted for SOB, had hx of asthma, desaturating and intubated in ED, found to be hypertensive, after sedation became hypotensive. Seen pt duirng rounds tachyarrhythmia (svt and aflutter) during the night, discontinued ketamine, failed weaning. will readd sedation and do slow weaning, continue on fent prop and versed, amio. patient converted to sinus POCUS with possible decreased contractility will order echo Objective Physical exam Intubated, sedated and mechanically ventilated PERRLA neuro not assessed S1 S2 RRR Mechanical breath sounds, improving Abdomen soft nontender No LE edema Lab WBC 21 K 5.6 Cr 1.2 trop 114 BNP 260 Vent AC/VC 500 22 50% 5 Drips propofol 10 fentanyl 275 versed 15 levophed [address] T wave abnormalities tele aflutter Imaging CXR clear, ETT R IJ TLC in place Echo wet read no TR or RV strain Assessment and plan Acute hypoxic hypercapnic respiratory failure Asthma exacerbation Type 2 PR demand ischemia Hypertensive urgency distributive shock sedation related Substance use metabolic alkalosis respiratory acidosis aflutter and svt likely ketamine related continue with mechanical ventilation sedation to RAAS -3 keep fent versed prop maintain SpO2 > 92% albuterol and ipatropium q4 flor solumedrol increased to 60 q8, titrate down steroid empiric coverage with ceft and azithromycin resume HTN meds echo wnl maintain map >70, can use levo MRSA swab, bcx scx c/w methadone klonazepam seroquel hold ac for now pt back to sinus Lines R IJ TLC NGT [place] Maintain potassium of 4, phosphate of 3 and magnesium of 2 Diet tube feeding GI prophylaxis protonix DVT prophylaxi lovenox Condition critical Prognosis poor 94 minutes critical care time spent on this patient including evaluation, chart review, formulating plan and communication with team, excluding any procedures or point of care imaging Plan discussed with: Other My Orders Orders - IVET QUINN MD Procedure Category Date Status Time Nutritional PHA 02/07/24 In Process Supplements (Jevity 16:00 Clonazepam Tablet PHA 02/07/24 In Process (Klonopin Tablet) 22:00 Propofol (Diprivan) PHA 02/08/24 In Process 09:45 Date of Service: Feb 08, 2024 Billing Provider: IVET QUINN MD Common Visit Codes: [id number] CARE 30-74 MIN, [id number] CARE-EACH +30MIN IVET QUINN MD Feb 08, 2024 12:30
[2024-02-08] MEDS: methylPREDNISolone SOD SUCC 125 MG/2 ML VL IV SCH (14:10)
--- NOTE | 2024-02-08 23:22 | DVHPN2 ---
Progress Note - Dictate Date Seen: Feb 08, 2024 Medical Necessity Reason Pt with a Central, PICC or Fol: Yes The following are medically ne: Mckeon Catheter Reason for mckeon catheter: Strict I&O Subjective Patient seen and examined at bedside. Sedated, intubated on mechanical ventilator. Overnight events reviewed. vital signs Vital Sign Date Time Temp Pulse Resp B/P (MAP) Pulse Ox O2 Delivery O2 Flow Rate FiO2 02/08/24 22:12 64 24 117/71 (86) 100 35 02/08/24 22:00 Mechanical Ventilator+ 02/08/24 21:30 99.4 99.4 Total Intake and Output 02/07/24 02/07/24 02/08/24 15:00 23:00 07:00 Intake Total 1259.13 ml 943.436 ml 1309.8705 ml Output Total 3050 ml 850 ml Balance 1259.13 ml -2106.564 ml 459.8705 ml medications Current Medications Medications Dose Ordered Sig/Compa Route Start Time Stop Time Status Last Admin Dose Admin Fentanyl Citrate 250 ml @ 2.5 mls/hr Q24H IV 01/31/24 19:30 02/08/24 19:59 35 MLS/HR Acetaminophen 1,000 mg [id number] PRN IV 01/31/24 20:00 01/31/24 20:01 Cancel Ceftriaxone Sodium 50 ml @ 100 mls/hr DAILY@09 IV 02/01/24 09:00 02/08/24 09:18 100 MLS/HR Azithromycin 250 ml @ 125 mls/hr DAILY IV 02/01/24 10:00 02/08/24 09:47 125 MLS/HR Pantoprazole Sodium 40 mg DAILY IV 02/01/24 10:00 02/08/24 09:48 40 MG Aspirin 81 mg DAILY PO 02/01/24 10:00 02/08/24 09:50 81 MG Atorvastatin Calcium 40 mg HS PO 02/01/24 22:00 02/08/24 22:08 40 MG Enoxaparin Sodium 40 mg DAILY SC 02/01/24 10:00 02/08/24 09:49 40 MG Ipratropium [place] 0.5 mg Q4HR NEB 02/01/24 10:00 02/08/24 22:08 0.5 MG Albuterol 2.5 mg Q4HR NEB 02/01/24 10:45 02/08/24 22:08 2.5 MG Acetaminophen 650 mg Q6HP PRN [place] 02/02/24 00:00 02/02/24 00:44 650 MG Norepinephrine Bitartrate 250 ml @ 3.75 mls/hr Q24H IV 02/02/24 06:15 02/02/24 06:32 3.75 MLS/HR Ketamine HCl 500 mg/Sodium Chloride 500 ml @ 6.276 mls/ hr Q24H IV 02/02/24 08:30 02/08/24 16:32 53.346 MLS/HR Polyethylene Glycol 17 gm DAILY PO 02/04/24 10:00 02/08/24 09:49 17 GM Dexmedetomidine HCl 400 mcg/ Dextrose 100 ml @ 5.425 mls/ hr [id number] IV 02/05/24 15:15 02/08/24 19:59 18.988 MLS/HR Quetiapine Fumarate 25 mg BID PO 02/05/24 22:00 02/08/24 22:08 25 MG Methadone HCl 10 mg DAILY PO 02/07/24 10:00 02/08/24 09:51 10 MG Enteral Nutritional Formula 1,000 ml 50ML/HR GT 02/07/24 16:00 02/08/24 16:36 1,000 ML Clonazepam 1 mg Q12HR PO 02/07/24 22:00 02/08/24 22:08 1 MG Midazolam HCl 2 mg Q2HPRN PRN IV 02/08/24 01:15 02/08/24 02:25 2 MG Midazolam HCl 50 ml @ 1 mls/hr Q24H IV 02/08/24 03:30 02/08/24 20:29 4 MLS/HR Amiodarone HCl 250 ml @ 16.667 mls/ hr Q15H IV 02/08/24 11:30 02/08/24 16:34 16.667 MLS/HR Albuterol 2.5 mg Q6HR HHN 02/08/24 12:00 Propofol 100 ml @ 3.099 mls/ hr Q24H IV 02/08/24 09:45 02/08/24 10:29 3.099 MLS/HR Methylprednisolone Sodium Succinate 40 mg TID IV 02/08/24 14:00 02/08/24 22:07 40 MG objective Gen.: Patient lying in bed in medical ICU. Sedated, intubated on mechanical ventilator. Head: Normocephalic, atraumatic. Eyes: PERRLA. Ears: Normal external anatomy. Throat: Endotracheal tube and orogastric tube in place. Neck: Supple, trachea midline. Chest: Transmitted breath sounds bilaterally. Decreased air entry bilaterally. Bilateral wheezing present. Bibasilar crackles. Cardiovascular: Positive S1, positive S2. Regular rate and rhythm. Abdomen: Positive bowel sounds in all 4 quadrants. Soft, nontender, nondistended. : Mckeon in place. Normal external genitalia. Rectal: Deferred. Skin: Warm, dry. Intact. Extremities: 2+ radial pulses bilaterally. No lower extremity edema. Neuro: Sedated. laboratory and microbiology Laboratory Tests 02/08/24 03:57 Test 02/08/24 03:57 Range/Units Serum Glucose 124 H 74-106 mg/dL Assessment/Plan Impression: Acute hypoxic respiratory failure On mechanical ventilator Asthma exacerbation Likely community-acquired pneumonia Likely NSTEMI type 2 Acute sepsis Recurrent hyperkalemia Overweight, BMI 28.8 Events: Remains on vent support On AC mode; RR 24, VT 500, PEEP 5, FiO2 of 35%. ABG reviewed, notable for alkalemia. CXR demonstrates devices in place. Bibasilar opacities similar to prior. Small right pleural effusion. No pneumothorax. Limited chest ultrasound notable for B lines, small right pleural effusion. Sedated on Propofol, Fentanyl, Versed Ketamine tapered off. Off Bob-Synephrine. Tube feeds for nutritional support. Off pressors, hemodynamically stable. Continue antibiotics IV steroids - taper as tolerated Continue bronchodilators F/u Cardiology recs for AFib/flutter. Taper sedation per protocol. Labs and imaging reviewed. Rest of plan as noted below. Plan: s/p intubation on mechanical ventilator. On AC mode; RR 24, VT 500, PEEP 5, FiO2 of 35%. Titrate FIO2 to keep O2 saturation above 90%. VAP bundle. Daily ABG and CXR while intubated Sedate for ventilator synchrony Continue bronchodilators. IV steroids Continue antibiotics. F/u cultures. Pressors if necessary for hemodynamic support Titrate to keep mean arterial pressure greater than 65 mmHg. Monitor renal function Monitor electrolytes. Supplement as necessary. Monitor ins and outs. Maintain euvolemia. GI prophylaxis - Protonix. DVT prophylaxis - Lovenox. Prognosis: Poor given patient's multiple co-morbidities. Condition: Critical Rest of plan per hospitalist and other consultants. A total of 35 minutes of critical care time was spent reviewing the patient record, examining the patient, making a diagnostic and therapeutic plan, discussing this plan with the medical personnel, following up on diagnostic studies and following the patient for clinical stability excluding any and all procedures. At least 50% of this time was spent in direct, [id number] contact. Thank you Dr. Jim Ojeda MD, for allowing me to participate in this patient's care. Further recommendations will depend on the patient's clinical course. Please do not hesitate to contact me if you have any questions or concerns. This medical document was created using an electronic medical record system with [employer] dictation system. Although these documentations are being carefully reviewed, there may still be some phonetic and typographical changes. The errors are purely typographical, due to imperfection on the software program, and do not reflect any compromise in the patient's medical care. Dietary Evaluation Review Comments: 1) Increase Jevity 1.2 to 55ml/hr x 24hr goal rate as tolerated to meet estimated needs 2) Advance pt diet when medicall feasible 3) Continue current plan of care Expected Outcomes/Goals: 1) Pt to receive adequate nutrition support within 7 days of NPO status 2) Pt diet to advance 3) F/U in 2-3 days Plan discussed with: Other (IVANA Elena) Critical Care Time(min): 35 WARREN POWELL MD Feb 08, 2024 23:22
[2024-02-09] VITALS (114 sets, daily range): BP systolic 83–145; BP diastolic 39–87; PULSE 56–99; RESP 19–24; TEMP 98.2–99.5; O2SAT 96–100
[2024-02-09 04:02] LABS: Basophils # (auto) 0 10 ^3/uL (0-0.2); Basophils % (auto) 0.1 % (0.0-2.0); Eosinophils # (auto) 0 10 ^3/uL (0-0.8); Hematocrit 46.3 % (41.0-53.0); Hemoglobin 15.2 g/dL (13.5-17.5); Lymphocytes # (auto) 1.5 10 ^3/uL (0.4-5.4); Lymphocytes % (auto) 11.7 % (10.0-50.0); Mean Corpuscular Hemoglobin 28.8 pg (28.0-32.0); Mean Corpuscular Hgb Conc. 32.8 g/dL (32.0-36.0); Mean Corpuscular Volume 87.8 fL (80.0-100.0); Monocytes # (auto) 0.9 10 ^3/uL (0-1.3); Monocytes % (auto) 7.2 % (0.0-12.0); Neutrophils # (auto) 10.5 10 ^3/uL (1.6-8.6); Nucleated Red Blood Cells % 0.2 %; Platelet Count (auto) 220 10^3/uL (140-450); Red Blood Cells 5.27 10^6/uL (4.5-5.90); Red Cell Distribution Width 14.6 % (11.8-14.3)
[2024-02-09 04:18] LABS: Alanine Aminotransferase 22 U/L (7-40); Alkaline Phosphatase 63 U/L (46-116); Anion Gap 3 (5-15); BUN/Creatinine Ratio 39.5 (10.0-20.0); Calcium 9.3 mg/dL (8.7-10.4); Magnesium 2.2 mg/dL (1.6-2.6); Potassium 4.4 mmol/L (3.5-5.1); Sodium 143 mmol/L (136-145)
[2024-02-09 04:19] LABS: Albumin 3.4 g/dL (3.2-4.8); Bilirubin, Total 0.5 mg/dL (0.2-1.0)
[2024-02-09 04:22] LABS: Aspartate Aminotransferase 9 U/L (13-40); Blood Urea Nitrogen 34 mg/dL (9-23); Carbon Dioxide 32 mmol/L (20-31); Chloride 108 mmol/L (98-107); Glucose 145 mg/dL (74-106); Total Protein 5.4 g/dL (5.7-8.2)
--- NOTE | 2024-02-09 05:27 | DVH ---
CHEST RADIOGRAPH Indication: Intubation Technique: Single frontal view of the chest was obtained COMPARISON: XY CHEST PORTABLE on DOS: 02/08/24, XY CHEST PORTABLE on DOS: 02/08/24, XY CHEST PORTABLE on DOS: 02/07/24, XY CHEST PORTABLE on DOS: 02/06/24, XY CHEST PORTABLE on DOS: 02/06/24 FINDINGS: Lines and Tubes: Endotracheal tube, enteric catheter and right central venous catheter in satisfactor y position. Lungs: Congestion Pleura: No effusion. No pneumothorax. Cardiomediastinal contours: Unremarkable Bones: Unremarkable IMPRESSION: Lines and tubes in satisfactory position. No significant interval change.
[2024-02-09 07:40] LABS: Base Excess 5.2 mmol/L (-2.0-3.0)
[2024-02-09] MEDS: FUROSEMIDE 40 MG/4 ML VIAL IV SCH (10:10)
--- NOTE | 2024-02-09 12:28 | DVHINCON2 ---
Date Seen: Feb 09, 2024 Referring Physician MD Rusty Reason for Consultation New onset A-flutter History of Present Illness This is a 53-year-old male patient who presents to the emergency room with chief complaint of shortness of breath. At the time of assessment, the patient is in the intensive care unit chemically sedated and mechanically ventilated. History obtained from medical records and bedside RN. The patient was urgently intubated in the emergency room for airway protection. Cardiology is now being consulted for new onset atrial flutter. At the time of assessment, the patient is back in a normal sinus rhythm. After reviewing court monitor and cardiac strips, it appears that the patient went into atrial fibrillation with rapid ventricular rate followed by atrial flutter on 02/08/24. Per notes, the patient went into an arrhythmia while being weaned off sedation. No initial 12 lead electrocardiogram seen and hard chart, but previous cardiac monitoring strips confirm normal sinus rhythm prior to atrial fibrillation/flutter event. Significant past medical history includes hypertension, asthma, and polysubstance abuse. Past Medical History Past medical history reviewed. No other significant than mentioned above. Past Surgical History Unable to obtain Family History: FHx: pulmonary embolism GRANDDAUGHTER Family History Family history reviewed. Social History Toxicology screen positive for fentanyl, phencyclidine, amphetamines, benzodiazepines Allergies: Coded Allergies: NO KNOWN ALLERGIES (Unverified , 01/29/23) UNOBTAINABLE (Unverified , 01/31/24) SEVERLY SOB Home Meds Active Scripts Cephalexin Monohydrate (Cephalexin) 500 Mg Cap, 1 CAP PO TID for 7 Days, #30 CAP Prov:HENNA SINGH RESIDENT 01/31/23 Lidocaine (LIDODERM 5% TOPICAL PATCH) 1 Patch Ph, 1 PATCH TOP DAILY for 7 Days, #7 PATCH Prov:ARMANDOHENNA HALE RESIDENT 01/31/23 Atorvastatin Calcium (ATORVASTATIN CALCIUM) 20 Mg Tab, 40 MG PO HS for 30 Days, #60 TAB Prov:HENNA SINGH RESIDENT 01/31/23 Reported Medications Lisinopril (Lisinopril) 20 Mg Tab, 20 MG PO DAILY for 30 Days, MG 01/30/23 Aspirin (Aspir-Low) 81 Mg Tab, 81 MG PO DAILY for 30 Days, MG 01/30/23 Home Meds Home medications reviewed. Current Medications Current Medications Medications (Trade) Dose Ordered Sig/Compa Route PRN Reason Start Time Stop Time Status Last Admin Methylprednisolone Sodium Succinate (Solu Medrol) 40 mg TID IV 02/08/24 14:00 02/09/24 05:29 Furosemide (Lasix Injection) 40 mg DAILY IV 02/09/24 10:00 02/09/24 10:10 Review of Systems Constitutional: No symptom reported Ears, Nose, & Throat: No symptom reported Eyes: No symptom reported Neurological: No symptoms reported Pulmonary/Respiratory: Shortness of breath Cardiovascular: No symptom reported Gastrointestinal: No symptom reported Genitourinary: No symptom reported Musculoskeletal: No symptom reported Skin: No symptom reported Psychiatric: No symptom reported Endocrine: No symptom reported Hematologic/Lymphatic: No symptom reported Vital Signs Vital Signs Date Time Temp Pulse Resp B/P (MAP) Pulse Ox O2 Delivery O2 Flow Rate FiO2 02/09/24 12:05 62 24 99/50 (66) 99 35 02/09/24 06:00 Mechanical Ventilator+ 02/09/24 04:00 99.5 99.5 Physical Exam General Appearance: Calm, relaxed Pulmonary/Respiratory: Clear, bilateral breaths sounds. Mechanically ventilated Cardiovascular/Chest: Regular rate and rhythm. Peripheral Pulses: 2+ Radial (R). 2+ Radial (L). Abdominal Exam: Normal bowel sounds. Ankle Exam: Negative ankle edema Lower extremities: Negative lower extremity edema Neuro/Mental Status: Chemically sedated Thoughts/Psych: Deferred Appearance: No acute distress. Skin Exam: Feet cool to touch. Hyperpigmentation to bilateral lower extremities Labs/Diagnostic Data Labs Test 02/09/24 07:34 02/09/24 02:45 02/08/24 07:08 02/07/24 02:55 Range/Units Blood Gas Specimen Type Arterial Blood Gas Sample Site Right radial Blood Gas Patient Temperature 37.0 Arterial Blood Date Drawn [id number] Arterial Blood pH 7.475 H 7.350-7.450 Arterial Blood Partial Pressure CO2 40.5 35.0-48.0 mmHg Arterial Blood Partial Pressure O2 78.4 L 83.0-108.0 mmHg Arterial Blood HCO3 29.1 H 21.0-28.0 mmol/L Arterial Blood Oxygen Saturation 95.4 94.0-98.0 % Arterial Blood Base Excess 5.2 H -2.0-3.0 mmol/L Arterial Blood Oxyhemoglobin 94.4 94.0-98.0 % Arterial Blood Carboxyhemoglobin 0.9 0.5-1.5 % Arterial Blood Methemoglobin 0.1 0.0-1.5 % Davide Test Modified Blood Gas Total Hemoglobin 15.60 13.5-17.5 g/dL Blood Gas Set Respiration Rate 24.0 Blood Gas Modality Vent - ac FiO2 % 35.0 Blood Gas Tidal Volume 500.0 Blood Gas PEEP or CPAP 5.0 White Blood Count 13.0 H 4.4-10.8 10^3/uL Red Blood Count 5.27 4.5-5.90 10^6/uL Hemoglobin 15.2 13.5-17.5 g/dL Hematocrit 46.3 41.0-53.0 % Mean Corpuscular Volume 87.8 80.0-100.0 fL Mean Corpuscular Hemoglobin 28.8 28.0-32.0 pg Mean Corpuscular Hemoglobin Concent 32.8 32.0-36.0 g/dL Red Cell Distribution Width 14.6 H 11.8-14.3 % Platelet Count 220 140-450 10^3/uL Mean Platelet Volume 9.4 6.9-10.8 fL Neutrophils (%) (Auto) 81.0 H 37.0-80.0 % Lymphocytes (%) (Auto) 11.7 10.0-50.0 % Monocytes (%) (Auto) 7.2 0.0-12.0 % Eosinophils (%) (Auto) 0.0 0.0-7.0 % Basophils (%) (Auto) 0.1 0.0-2.0 % Neutrophils # (Auto) 10.5 H 1.6-8.6 10 ^3/uL Lymphocytes # (Auto) 1.5 0.4-5.4 10 ^3/uL Monocytes # (Auto) 0.9 0-1.3 10 ^3/uL Eosinophils # (Auto) 0 0-0.8 10 ^3/uL Basophils # (Auto) 0 0-0.2 10 ^3/uL Nucleated Red Blood Cells 0.2 % Sodium Level 143 136-145 mmol/L Potassium Level 4.4 3.5-5.1 mmol/L Chloride Level 108 H 98-107 mmol/L Carbon Dioxide Level 32 H 20-31 mmol/L Anion Gap 3 L 5-15 Blood Urea Nitrogen 34 H 9-23 mg/dL Creatinine 0.86 0.700-1.30 mg/dL Glomerular Filtration Rate Calc 104 >90 mL/min BUN/Creatinine Ratio 39.5 H 10.0-20.0 Serum Glucose 145 H 74-106 mg/dL Calcium Level 9.3 8.7-10.4 mg/dL Phosphorus Level 3.0 2.4-5.1 mg/dL Magnesium Level 2.2 1.6-2.6 mg/dL Total Bilirubin 0.5 0.2-1.0 mg/dL Aspartate Amino Transferase (AST) 9 L 13-40 U/L Alanine Aminotransferase (ALT) 22 7-40 U/L Alkaline Phosphatase 63 46-116 U/L Total Protein 5.4 L 5.7-8.2 g/dL Albumin 3.4 3.2-4.8 g/dL Blood Gas Spontaneous Rate 24 Blood Gas Inspiratory Pressure 24.0 Bl Gas Inspiratory/Expiratory Ratio 1:2.2 Specimen Drawn By dayana leal Triglycerides Level 191 H < 150 mg/dL Test 02/05/24 09:39 02/02/24 00:10 02/01/24 18:09 02/01/24 08:52 Range/Units Blood Gas Critical Value Read Back yes Blood Gas Notified Whom ke cantu md Blood Gas Notified Time [id number] Blood Gas Notified By paul white rrt Urine Color Yellow Yellow Urine Clarity Turbid H Clear Urine pH 5.0 5.0-9.0 Urine Specific [place] 1.013 1.001-1.035 Urine Protein Negative Negative Urine Ketones Negative Negative Urine Blood Negative Negative /uL Urine Nitrite Negative Negative Urine Bilirubin Negative Negative Urine Urobilinogen Normal Negative mg/dL Urine Leukocyte Esterase Negative Negative /uL Urine RBC None seen 0 - 3 /hpf Urine WBC None seen 0 - 3 /hpf Urine Squamous Epithelial Cells None seen <5 /hpf Urine Bacteria None seen None Seen /hpf Urine Glucose Normal Normal mg/dL Urine Opiates Screen Neg NEGATIVE Urine Fentanyl Screen Pos NEGATIVE Urine Barbiturates Screen Neg NEGATIVE Urine Phencyclidine Screen Pos NEGATIVE Urine Amphetamines Screen Pos NEGATIVE Urine Benzodiazepines Screen Pos NEGATIVE Urine Cocaine Screen Neg NEGATIVE Urine Cannabinoids Screen Neg NEGATIVE POC Glucose 91 70-106 mg/dl Miscellaneous Referred Test (Rm Tmp Sent to [facility] Test 02/01/24 06:43 02/01/24 00:30 01/31/24 21:09 01/31/24 19:36 Range/Units Influenza Type A Antigen Negative Negative Influenza Type B Antigen Negative Negative SARS-CoV-2 Antigen (Rapid) Negative NEGATIVE Troponin I High Sensitivity 106 *H </=54 ng/L Lactic Acid Level 1.7 0.4-2.0 mmol/L D-Dimer, Quantitative 1.35 H 0.0-0.49 mg/L FEU B-Type Natriuretic Peptide 260.79 0-100 pg/mL Thyroid Stimulating Hormone (TSH) 2.62 0.55-4.78 uIU/mL Plasma/Serum Blood Alcohol < 3.0 <10 mg/dL Microbiology Date/Time Source Procedure Growth Status 02/02/24 05:00 Nose MRSA Screen - Final Complete 02/02/24 05:00 Urine - [place] Urine Culture - Final Complete 01/31/24 21:30 Blood Blood Culture - Final NO GROWTH AFTER 5 DAYS OF INCUBATION. Complete 01/31/24 19:45 Sputum Gram Stain - Final Resulted 01/31/24 19:45 Sputum Respiratory Culture - Preliminary Resulted Assessment Atrial fibrillation/flutter, new onset, now normal sinus rhythm Hypertensive urgency, now hypotensive NSTEMI type II Acute hypoxic respiratory failure Polysubstance abuse Obese Plan/Recommendation We will continue following plan/recommendations (Dr. Miranda): * Echocardiogram reveals EF 55% * [id number] VASc score: 1 point * Antiarrhythmic agent, amiodarone * Consider beta-pa once off of vasopressors * NOAC when appropriate * Vasopressors for hemodynamic support * Monitor and replete electrolytes as needed, Keep K>4 and Mag>2 * Close Cardiac surveillance Patient seen and examined at bedside with . At this time we will recommend to continue with antiarrhythmic agent amiodarone and consider beta-bl ocker once off of vasopressors. We will also recommend therapeutic Lovenox while inpatient and consider to transition to oral NOAC for at least 30 days. Thank you for allowing us to care for this patient. Please call with any questions or concerns. Critical care time spent: 41 minutes This medical document was created using an electronic medical record system with voice recognition software and computerized dictation system. Although this document has been carefully reviewed, there might still be some phonetic and typographical errors. Occasional wrong-word or ``sound-alike substitutions may have occurred due to the inherent limitations of voice recognition software. These areas are purely typographical due to imperfections of the software programs and do not reflect any compromise in the patient's medical care. Please read the chart carefully and recognize, using context, where these substitutions have occurred. Plan discussed with: Other (Bedside RN) Date of Service: Feb 09, 2024 Billing Provider: MULUGETA NGUYEN Cardiology Common Codes: 93782-[id number] INP/OBS CARE (High) Cardiology Consultation Codes: [id number] CONSULT <45MIN MULUGETA NGUYEN Feb 09, 2024 12:28
--- NOTE | 2024-02-09 13:09 | DVHPN2 ---
Assessment/Plan Assessment/Plan ICU progress note Subjective 53 yo M admitted for SOB, had hx of asthma, desaturating and intubated in ED, found to be hypertensive, after sedation became hypotensive. Seen pt duirng rounds aflutter overnight, now back to NSR, switching to oral amio, cardio consulted, slow weaning for sedation with oral meds. pt with no next of kin Objective Physical exam Intubated, sedated and mechanically ventilated PERRLA follows command S1 S2 RRR Mechanical breath sounds, improving Abdomen soft nontender No LE edema Lab WBC 21 K 5.6 Cr 1.2 trop 114 BNP 260 trig 100s Vent AC/VC 500 24 35% 5 Drips propofol 10 fentanyl 275 versed 15 levophed [address] T wave abnormalities tele aflutter Imaging CXR clear, ETT R IJ TLC in place Echo wet read no TR or RV strain Assessment and plan Acute hypoxic hypercapnic respiratory failure Asthma exacerbation Type 2 DC demand ischemia Hypertensive urgency distributive shock sedation related Substance use metabolic alkalosis respiratory acidosis aflutter likely ketamine related continue with mechanical ventilation sedation to RAAS -2 keep fent versed prop maintain SpO2 > 92% albuterol and ipatropium q4 flor solumedrol increased to 60 q8, titrate down steroid empiric coverage with ceft and azithromycin resume HTN meds cardio consult appreciated maintain map >70, can use levo c/w methadone klonazepam seroquel hold ac for now pt back to sinus slow weaning off sedation recheck trig 02/11/24 Lines R IJ TLC NGT [place] Maintain potassium of 4, phosphate of 3 and magnesium of 2 Diet tube feeding GI prophylaxis protonix DVT prophylaxis lovenox Condition critical Prognosis poor 59 minutes critical care time spent on this patient including evaluation, chart review, formulating plan and communication with team, excluding any procedures or point of care imaging Plan discussed with: Patient, Other My Orders Orders - IVET QUINN MD Procedure Category Date Status Time Communication Order ORDERS 02/08/24 Transmitted 15:14 * Dietary Consult CONS 02/08/24 Transmitted 16:44 Apply Barrier Cream SHIRA 02/08/24 In Process 10:00 Furosemide Injection PHA 02/09/24 In Process (Lasix Injection) 10:00 * Cardiology Consult CONS 02/09/24 Transmitted 10:01 Amiodarone Tablet PHA 02/09/24 Transmitted (Cordarone Tablet) 22:00 Amiodarone Tablet PHA 02/09/24 Transmitted (Cordarone Tablet) 13:15 Senna Pod Tablet PHA 02/09/24 Transmitted (Senokot Tablet) 22:00 Date of Service: Feb 09, 2024 Billing Provider: IVET QUINN MD Common Visit Codes: [id number] CARE 30-74 MIN IVET QUINN MD Feb 09, 2024 13:09
[2024-02-09] MEDS ORDERED: IPRATROPIUM BROM 0.5 MG/2.5ML INH SOL NEB PRN (13:45)
[2024-02-09] MEDS ORDERED: ALBUTEROL SULF 2.5 MG/0.5ML(0.5%) NEB SOLN NEB PRN (13:45)
[2024-02-09] MEDS: AMIODARONE HCL 200 MG TAB PO ONE (13:49)
[2024-02-09] MEDS: ALBUTEROL SULF 2.5 MG/0.5ML(0.5%) NEB SOLN ONE (14:34)
[2024-02-09] MEDS: IPRATROPIUM BROM 0.5 MG/2.5ML INH SOL ONE (14:35)
[2024-02-09] MEDS: IPRATROPIUM BROM 0.5 MG/2.5ML INH SOL NEB SCH (14:35)
[2024-02-09] MEDS: ALBUTEROL SULF 2.5 MG/0.5ML(0.5%) NEB SOLN NEB SCH (14:35)
[2024-02-09] MEDS: AMIODARONE HCL 200 MG TAB PO SCH (21:31)
[2024-02-09] MEDS: SENNA 8.6 MG TAB PO SCH (21:31)
[2024-02-09] MEDS: fentaNYL Drip 2500mCg/250mlNS 250 ML IV SCH (23:14)
--- NOTE | 2024-02-09 23:22 | DVHPN2 ---
Progress Note - Dictate Date Seen: Feb 09, 2024 Medical Necessity Reason Pt with a Central, PICC or Fol: Yes The following are medically ne: Mckeon Catheter Reason for mckeon catheter: Strict I&O Subjective Patient seen and examined at bedside. Sedated, intubated on mechanical ventilator. Overnight events reviewed. vital signs Vital Sign Date Time Temp Pulse Resp B/P (MAP) Pulse Ox O2 Delivery O2 Flow Rate FiO2 02/09/24 22:38 70 20 102/49 (66) 99 30 02/09/24 22:00 Mechanical Ventilator+ 02/09/24 20:00 98.9 98.9 Total Intake and Output 02/08/24 02/08/24 02/09/24 15:00 23:00 07:00 Intake Total 2197.38 ml 1306.200 ml 978.052 ml Output Total 2600 ml 775 ml Balance 2197.38 ml -1293.800 ml 203.052 ml medications Current Medications Medications Dose Ordered Sig/Compa Route Start Time Stop Time Status Last Admin Dose Admin Acetaminophen 1,000 mg [id number] PRN IV 01/31/24 20:00 01/31/24 20:01 Cancel Ceftriaxone Sodium 50 ml @ 100 mls/hr DAILY@09 IV 02/01/24 09:00 02/09/24 08:55 100 MLS/HR Azithromycin 250 ml @ 125 mls/hr DAILY IV 02/01/24 10:00 02/09/24 09:42 125 MLS/HR Pantoprazole Sodium 40 mg DAILY IV 02/01/24 10:00 02/09/24 10:09 40 MG Aspirin 81 mg DAILY PO 02/01/24 10:00 02/09/24 09:40 81 MG Atorvastatin Calcium 40 mg HS PO 02/01/24 22:00 02/09/24 21:31 40 MG Enoxaparin Sodium 40 mg DAILY SC 02/01/24 10:00 02/09/24 10:10 40 MG Acetaminophen [address] 02/02/24 00:00 02/02/24 00:44 650 MG Norepinephrine Bitartrate 250 ml @ 3.75 mls/hr Q24H IV 02/02/24 06:15 02/09/24 11:00 3.75 MLS/HR Polyethylene Glycol 17 gm DAILY PO 02/04/24 10:00 02/09/24 09:40 17 GM Quetiapine Fumarate 25 mg BID PO 02/05/24 22:00 02/09/24 21:30 25 MG Enteral Nutritional Formula 1,000 ml 50ML/HR GT 02/07/24 16:00 02/08/24 16:36 1,000 ML Clonazepam 1 mg Q12HR PO 02/07/24 22:00 02/09/24 21:30 1 MG Midazolam HCl 2 mg Q2HPRN PRN IV 02/08/24 01:15 02/08/24 02:25 2 MG Midazolam HCl 50 ml @ 1 mls/hr Q24H IV 02/08/24 03:30 02/09/24 18:58 4 MLS/HR Propofol 100 ml @ 3.099 mls/ hr Q24H IV 02/08/24 09:45 02/09/24 05:33 3.099 MLS/HR Methylprednisolone Sodium Succinate 40 mg TID IV 02/08/24 14:00 02/09/24 21:31 40 MG Furosemide 40 mg DAILY IV 02/09/24 10:00 02/09/24 10:10 40 MG Amiodarone HCl 200 mg Q12HR PO 02/09/24 22:00 02/09/24 21:31 200 MG Sennosides 17.2 mg HS PO 02/09/24 22:00 02/09/24 21:31 17.2 MG Methadone HCl 20 mg DAILY PO 02/10/24 10:00 Albuterol 2.5 mg Q8HR NEB 02/09/24 14:00 02/09/24 18:47 2.5 MG Ipratropium [place] 0.5 mg Q8HR NEB 02/09/24 14:00 02/09/24 18:47 0.5 MG Albuterol 2.5 mg Q4HPRN PRN NEB 02/09/24 13:45 Ipratropium [place] 0.5 mg Q4HPRN PRN NEB 02/09/24 13:45 Fentanyl Citrate 250 ml @ 2.5 mls/hr Q24H IV 02/09/24 23:00 02/09/24 23:14 35 MLS/HR objective Gen.: Patient lying in bed in medical ICU. Sedated, intubated on mechanical ventilator. Head: Normocephalic, atraumatic. Eyes: PERRLA. Ears: Normal external anatomy. Throat: Endotracheal tube and orogastric tube in place. Neck: Supple, trachea midline. Chest: Transmitted breath sounds bilaterally. Decreased air entry bilaterally. Bilateral wheezing present. Bibasilar crackles. Cardiovascular: Positive S1, positive S2. Regular rate and rhythm. Abdomen: Positive bowel sounds in all 4 quadrants. Soft, nontender, nondistended. : Mckeon in place. Normal external genitalia. Rectal: Deferred. Skin: Warm, dry. Intact. Extremities: 2+ radial pulses bilaterally. No lower extremity edema. Neuro: Sedated. laboratory and microbiology Laboratory Tests 02/09/24 02:45 Test 02/09/24 02:45 Range/Units Serum Glucose 145 H 74-106 mg/dL Assessment/Plan Impression: Acute hypoxic respiratory failure On mechanical ventilator Asthma exacerbation Likely community-acquired pneumonia Likely NSTEMI type 2 Acute sepsis Recurrent hyperkalemia Overweight, BMI 28.8 Events: Remains on vent support On AC mode; RR 20, VT 500, PEEP 5, FiO2 of 35%. (RR was tapered from 24 to 20 BPM) ABG reviewed, notable for alkalemia. CXR demonstrates devices in place. Pulmonary congestion noted. No effusion. No pneumothorax. Off Levophed. Sedated on Propofol, Fentanyl, Versed Off Ketamine and Precedex Tube feeds for nutritional support. Continue antibiotics IV steroids - taper as tolerated Continue bronchodilators Off amiodarone. Taper sedation per protocol. Labs and imaging reviewed. Rest of plan as noted below. Plan: s/p intubation on mechanical ventilator. On AC mode; RR 20, VT 500, PEEP 5, FiO2 of 35%. Titrate FIO2 to keep O2 saturation above 90%. VAP bundle. Daily ABG and CXR while intubated Sedate for ventilator synchrony Off pressors, hemodynamically stable. Continue bronchodilators. IV steroids Continue antibiotics. F/u cultures. Start pressors if necessary for hemodynamic support Titrate to keep mean arterial pressure greater than 65 mmHg. Monitor renal function Monitor electrolytes. Supplement as necessary. Monitor ins and outs. Maintain euvolemia. GI prophylaxis - Protonix. DVT prophylaxis - Lovenox. Prognosis: Poor given patient's multiple co-morbidities. Condition: Critical Rest of plan per hospitalist and other consultants. A total of 35 minutes of critical care time was spent reviewing the patient record, examining the patient, making a diagnostic and therapeutic plan, discussing this plan with the medical personnel, following up on diagnostic studies and following the patient for clinical stability excluding any and all procedures. At least 50% of this time was spent in direct, [id number] contact. Thank you Dr. Jim Ojeda MD, for allowing me to participate in this patient's care. Further recommendations will depend on the patient's clinical course. Please do not hesitate to contact me if you have any questions or concerns. This medical document was created using an electronic medical record system with [employer] dictation system. Although these documentations are being carefully reviewed, there may still be some phonetic and typographical changes. The errors are purely typographical, due to imperfection on the software program, and do not reflect any compromise in the patient's medical care. Dietary Evaluation Review Comments: 1) Increase Jevity 1.2 to 55ml/hr x 24hr goal rate as tolerated to meet estimated needs 2) Advance pt diet when medicall feasible 3) Continue current plan of care Expected Outcomes/Goals: 1) Pt to receive adequate nutrition support within 7 days of NPO status 2) Pt diet to advance 3) F/U in 2-3 days Plan discussed with: Other (IVANA Johnson) Critical Care Time(min): 35 WARREN POWELL MD Feb 09, 2024 23:22
--- NOTE | 2024-02-09 23:54 | DVHINCON2 ---
Date of service: Feb 09, 2024 Referring Physician MD Rusty Reason for Consultation New onset A-flutter History of Present Illness This is a 53-year-old male with a past medical history of hypertension, asthma, and polysubstance abuse who presents to the ED with complaint of shortness of breath. At the time of assessment, the patient is in the intensive care unit chemically sedated and mechanically ventilated. History obtained from medical records and bedside RN. Patient was urgently intubated in the emergency room for airway protection. Cardiology is now being consulted for new onset atrial flutter. At the time of assessment, the patient is back in a normal sinus rhythm. After reviewing monitoring specialist and cardiac strips, it appears that the patient went into atrial fibrillation with rapid ventricular rate followed by atrial flutter on 02/08/24. Per notes, the patient went into an arrhythmia while being weaned off sedation. No initial 12 lead electrocardiogram seen and hard chart, but previous cardiac monitoring strips confirm normal sinus rhythm prior to atrial fibrillation/flutter event. Family History: FHx: pulmonary embolism GRANDDAUGHTER Allergies: Coded Allergies: NO KNOWN ALLERGIES (Unverified , 01/29/23) UNOBTAINABLE (Unverified , 01/31/24) SEVERLY SOB Home Meds Active Scripts Cephalexin Monohydrate (Cephalexin) 500 Mg Cap, 1 CAP PO TID for 7 Days, #30 CAP Prov:HENNA SINGH RESIDENT 01/31/23 Lidocaine (LIDODERM 5% TOPICAL PATCH) 1 Patch Ph, 1 PATCH TOP DAILY for 7 Days, #7 PATCH Prov:HENNA SINGH RESIDENT 01/31/23 Atorvastatin Calcium (ATORVASTATIN CALCIUM) 20 Mg Tab, 40 MG PO HS for 30 Days, #60 TAB Prov:HENNA SINGH RESIDENT 01/31/23 Reported Medications Lisinopril (Lisinopril) 20 Mg Tab, 20 MG PO DAILY for 30 Days, MG 01/30/23 Aspirin (Aspir-Low) 81 Mg Tab, 81 MG PO DAILY for 30 Days, MG 01/30/23 Current Medications Current Medications Medications (Trade) Dose Ordered Sig/Compa Route PRN Reason Start Time Stop Time Status Last Admin Furosemide (Lasix Injection) 40 mg DAILY IV 02/09/24 10:00 02/09/24 10:10 Amiodarone HCl (Cordarone Tablet) 200 mg Q12HR PO 02/09/24 22:00 Sennosides (Senokot Tablet) 17.2 mg HS PO 02/09/24 22:00 Methadone HCl (Methadone HCl Tablet) 20 mg DAILY PO 02/10/24 10:00 Albuterol (Ventolin Medneb) 2.5 mg Q8HR NEB 02/09/24 14:00 02/09/24 14:35 Ipratropium [place] (Atrovent Medneb) 0.5 mg Q8HR NEB 02/09/24 14:00 02/09/24 14:35 Albuterol (Ventolin Medneb) 2.5 mg Q4HPRN PRN NEB SHORTNESS OF BREATH 02/09/24 13:45 Ipratropium [place] (Atrovent Medneb) 0.5 mg Q4HPRN PRN NEB SHORTNESS OF BREATH 02/09/24 13:45 Review of Systems Constitutional: No symptom reported Ears, Nose, & Throat: No symptom reported Eyes: No symptom reported Neurological: No symptoms reported Pulmonary/Respiratory: Shortness of breath Cardiovascular: No symptom reported Gastrointestinal: No symptom reported Genitourinary: No symptom reported Musculoskeletal: No symptom reported Skin: No symptom reported Psychiatric: No symptom reported Endocrine: No symptom reported Hematologic/Lymphatic: No symptom reported Vital Signs Vital Signs Date Time Temp Pulse Resp B/P (MAP) Pulse Ox O2 Delivery O2 Flow Rate FiO2 02/09/24 16:45 79 20 120/57 (78) 98 02/09/24 16:13 35 02/09/24 16:00 Mechanical Ventilator+ 02/09/24 15:00 98.2 98.2 Physical Exam GENERAL: Intubated on ventilator. Obese. LUNGS: Decreased breath sounds. CARDIOVASCULAR: Heart sounds are good. ABDOMEN: Soft. EXT: Cool to touch. SKIN: Hyperpigmentation to bilateral lower extremities Labs/Diagnostic Data Labs Test 02/09/24 07:34 02/09/24 02:45 02/08/24 07:08 02/07/24 02:55 Range/Units Blood Gas Specimen Type Arterial Blood Gas Sample Site Right radial Blood Gas Patient Temperature 37.0 Arterial Blood Date Drawn [id number] Arterial Blood pH 7.475 H 7.350-7.450 Arterial Blood Partial Pressure CO2 40.5 35.0-48.0 mmHg Arterial Blood Partial Pressure O2 78.4 L 83.0-108.0 mmHg Arterial Blood HCO3 29.1 H 21.0-28.0 mmol/L Arterial Blood Oxygen Saturation 95.4 94.0-98.0 % Arterial Blood Base Excess 5.2 H -2.0-3.0 mmol/L Arterial Blood Oxyhemoglobin 94.4 94.0-98.0 % Arterial Blood Carboxyhemoglobin 0.9 0.5-1.5 % Arterial Blood Methemoglobin 0.1 0.0-1.5 % Davide Test Modified Blood Gas Total Hemoglobin 15.60 13.5-17.5 g/dL Blood Gas Set Respiration Rate 24.0 Blood Gas Modality Vent - ac FiO2 % 35.0 Blood Gas Tidal Volume 500.0 Blood Gas PEEP or CPAP 5.0 White Blood Count 13.0 H 4.4-10.8 10^3/uL Red Blood Count 5.27 4.5-5.90 10^6/uL Hemoglobin 15.2 13.5-17.5 g/dL Hematocrit 46.3 41.0-53.0 % Mean Corpuscular Volume 87.8 80.0-100.0 fL Mean Corpuscular Hemoglobin 28.8 28.0-32.0 pg Mean Corpuscular Hemoglobin Concent 32.8 32.0-36.0 g/dL Red Cell Distribution Width 14.6 H 11.8-14.3 % Platelet Count 220 140-450 10^3/uL Mean Platelet Volume 9.4 6.9-10.8 fL Neutrophils (%) (Auto) 81.0 H 37.0-80.0 % Lymphocytes (%) (Auto) 11.7 10.0-50.0 % Monocytes (%) (Auto) 7.2 0.0-12.0 % Eosinophils (%) (Auto) 0.0 0.0-7.0 % Basophils (%) (Auto) 0.1 0.0-2.0 % Neutrophils # (Auto) 10.5 H 1.6-8.6 10 ^3/uL Lymphocytes # (Auto) 1.5 0.4-5.4 10 ^3/uL Monocytes # (Auto) 0.9 0-1.3 10 ^3/uL Eosinophils # (Auto) 0 0-0.8 10 ^3/uL Basophils # (Auto) 0 0-0.2 10 ^3/uL Nucleated Red Blood Cells 0.2 % Sodium Level 143 136-145 mmol/L Potassium Level 4.4 3.5-5.1 mmol/L Chloride Level 108 H 98-107 mmol/L Carbon Dioxide Level 32 H 20-31 mmol/L Anion Gap 3 L 5-15 Blood Urea Nitrogen 34 H 9-23 mg/dL Creatinine 0.86 0.700-1.30 mg/dL Glomerular Filtration Rate Calc 104 >90 mL/min BUN/Creatinine Ratio 39.5 H 10.0-20.0 Serum Glucose 145 H 74-106 mg/dL Hemoglobin A1c 6.2 H <5.7 % A1C Calcium Level 9.3 8.7-10.4 mg/dL Phosphorus Level 3.0 2.4-5.1 mg/dL Magnesium Level 2.2 1.6-2.6 mg/dL Total Bilirubin 0.5 0.2-1.0 mg/dL Aspartate Amino Transferase (AST) 9 L 13-40 U/L Alanine Aminotransferase (ALT) 22 7-40 U/L Alkaline Phosphatase 63 46-116 U/L Total Protein 5.4 L 5.7-8.2 g/dL Albumin 3.4 3.2-4.8 g/dL Blood Gas Spontaneous Rate 24 Blood Gas Inspiratory Pressure 24.0 Bl Gas Inspiratory/Expiratory Ratio 1:2.2 Specimen Drawn By dayana leal Triglycerides Level 191 H < 150 mg/dL Test 02/05/24 09:39 02/02/24 00:10 02/01/24 18:09 02/01/24 08:52 Range/Units Blood Gas Critical Value Read Back yes Blood Gas Notified Whom ke cantu md Blood Gas Notified Time [id number] Blood Gas Notified By paul white rrt Urine Color Yellow Yellow Urine Clarity Turbid H Clear Urine pH 5.0 5.0-9.0 Urine Specific [place] 1.013 1.001-1.035 Urine Protein Negative Negative Urine Ketones Negative Negative Urine Blood Negative Negative /uL Urine Nitrite Negative Negative Urine Bilirubin Negative Negative Urine Urobilinogen Normal Negative mg/dL Urine Leukocyte Esterase Negative Negative /uL Urine RBC None seen 0 - 3 /hpf Urine WBC None seen 0 - 3 /hpf Urine Squamous Epithelial Cells None seen <5 /hpf Urine Bacteria None seen None Seen /hpf Urine Glucose Normal Normal mg/dL Urine Opiates Screen Neg NEGATIVE Urine Fentanyl Screen Pos NEGATIVE Urine Barbiturates Screen Neg NEGATIVE Urine Phencyclidine Screen Pos NEGATIVE Urine Amphetamines Screen Pos NEGATIVE Urine Benzodiazepines Screen Pos NEGATIVE Urine Cocaine Screen Neg NEGATIVE Urine Cannabinoids Screen Neg NEGATIVE POC Glucose 91 70-106 mg/dl Miscellaneous Referred Test (Rm Tmp Sent to [facility] Test 02/01/24 06:43 02/01/24 00:30 01/31/24 21:09 01/31/24 19:36 Range/Units Influenza Type A Antigen Negative Negative Influenza Type B Antigen Negative Negative SARS-CoV-2 Antigen (Rapid) Negative NEGATIVE Troponin I High Sensitivity 106 *H </=54 ng/L Lactic Acid Level 1.7 0.4-2.0 mmol/L D-Dimer, Quantitative 1.35 H 0.0-0.49 mg/L FEU B-Type Natriuretic Peptide 260.79 0-100 pg/mL Thyroid Stimulating Hormone (TSH) 2.62 0.55-4.78 uIU/mL Plasma/Serum Blood Alcohol < 3.0 <10 mg/dL Microbiology Date/Time Source Procedure Growth Status 02/02/24 05:00 Nose MRSA Screen - Final Complete 02/02/24 05:00 Urine - [place] Urine Culture - Final Complete 01/31/24 21:30 Blood Blood Culture - Final NO GROWTH AFTER 5 DAYS OF INCUBATION. Complete 01/31/24 19:45 Sputum Gram Stain - Final Resulted 01/31/24 19:45 Sputum Respiratory Culture - Preliminary Resulted Assessment Atrial fibrillation/flutter, new onset, now normal sinus rhythm. Hypertensive urgency, now hypotensive. NSTEMI type II. Acute hypoxic respiratory failure. Polysubstance abuse. Obese. Plan/Recommendation I agree with your ongoing assessment and care of plan. Patient has been seen by Gracia Chatterjee NP on my behalf, her and I discussed the plan with the patient. Echocardiogram reveals EF 55%. [id number] VASc score: 1 point. Antiarrhythmic agent, amiodarone. Consider beta-pa once off of vasopressors. NOAC when appropriate. Vasopressors for hemodynamic support. Monitor and replete electrolytes as needed, Keep K>4 and Mag>2. Close Cardiac surveillance. Additional plan as per the hospital course. Critical care time of 90 minutes provided to include time spent evaluation of patient at bedside, when appropriate patient/family education for diagnosis, treatment plan, review of pertinent medical information and discussion of care with specialty providers and PCP. Mechanical ventilator parameters, treatment and adjustments have personally been reviewed by me and treatment plan by collision technician has also been reviewed. Plan discussed with: Other ROSARIO GENTILE MD Feb 09, 2024 17:32
[2024-02-10] VITALS (109 sets, daily range): BP systolic 101–145; BP diastolic 48–85; PULSE 56–99; RESP 17–21; TEMP 98.5–99.3; O2SAT 97–100
[2024-02-10 03:55] LABS: Basophils # (auto) 0 10 ^3/uL (0-0.2); Basophils % (auto) 0.1 % (0.0-2.0); Eosinophils # (auto) 0 10 ^3/uL (0-0.8); Hematocrit 41.5 % (41.0-53.0); Hemoglobin 13.5 g/dL (13.5-17.5); Lymphocytes # (auto) 0.8 10 ^3/uL (0.4-5.4); Lymphocytes % (auto) 6.3 % (10.0-50.0); Mean Corpuscular Hemoglobin 28.9 pg (28.0-32.0); Mean Corpuscular Hgb Conc. 32.6 g/dL (32.0-36.0); Mean Corpuscular Volume 88.6 fL (80.0-100.0); Monocytes # (auto) 0.9 10 ^3/uL (0-1.3); Monocytes % (auto) 6.5 % (0.0-12.0); Neutrophils # (auto) 11.7 10 ^3/uL (1.6-8.6); Neutrophils % (auto) 87.1 % (37.0-80.0); Platelet Count (auto) 201 10^3/uL (140-450); Red Blood Cells 4.69 10^6/uL (4.5-5.90); Red Cell Distribution Width 14.7 % (11.8-14.3); White Blood Cell 13.5 10^3/uL (4.4-10.8)
[2024-02-10 04:03] LABS: Anion Gap 5 (5-15); Carbon Dioxide 32 mmol/L (20-31); Chloride 109 mmol/L (98-107); Potassium 4.8 mmol/L (3.5-5.1); Sodium 146 mmol/L (136-145)
[2024-02-10 04:09] LABS: BUN/Creatinine Ratio 50.6 (10.0-20.0)
[2024-02-10 04:11] LABS: Phosphorus 3.8 mg/dL (2.4-5.1)
[2024-02-10 04:20] LABS: Calcium 9.1 mg/dL (8.7-10.4)
[2024-02-10 04:22] LABS: Blood Urea Nitrogen 42 mg/dL (9-23); Glucose 124 mg/dL (74-106)
[2024-02-10 04:35] LABS: Magnesium 2.2 mg/dL (1.6-2.6)
--- NOTE | 2024-02-10 05:40 | DVH ---
CHEST RADIOGRAPH Indication: INTUBATED Technique: Single frontal view of the chest was obtained Comparison: XY CHEST PORTABLE on DOS: 02/09/24, XY CHEST PORTABLE on DOS: 02/08/24, XY CHEST PORTABLE on DOS: 02/08/24 IMPRESSION: The heart is prominent size. There are small bilateral pleural effusions, right greater than left. Support lines and tubes appear unchanged in satisfactory position. There is moderate pulmonary vascul ar congestion. No pneumothorax. No significant interval change.
[2024-02-10 08:30] LABS: Base Excess 0.9 mmol/L (-2.0-3.0)
[2024-02-10] MEDS: METHADONE HCL 10 MG TAB PO SCH (09:50)
--- NOTE | 2024-02-10 12:31 | DVHPN2 ---
Subjective chart reviwed d/w nurse Changes from previous H/P or p: No Changes Eyes: No Pain, No Vision change, No Conjunctivae inflammation, No Eyelid inflammation, No Other, No Redness ENT: No Ear pain, No Ear discharge, No Nose pain, No Nose discharge, No Nose congestion, No Mouth pain, No Mouth swelling, No Throat pain, No Throat swelling, No Other Cardiovascular: No Chest Pain, No Palpitations, No Orthopnea, No Paroxysmal Noc. Dyspnea, No Edema, No Lt Headedness, No Other Respiratory: Cough, Dry, Shortness of breath, SOB with excertion, Wheezing; No Hemoptysis, No Pleuritic Pain, No Sputum, No Other Gastrointestinal: No Nausea, No Vomiting, No Abdominal Pain, No Diarrhea, No Constipation, No Melena, No Hematochezia, No Other Genitourinary: No Dysuria, No Frequency, No Incontinence, No Hematuria, No Retention, No Other Musculoskeletal: No other, No neck pain, No shoulder pain, No arm pain, No back pain, No hand pain, No leg pain, No foot pain Skin: No Rash, No Lesions, No Jaundice, No Bruising, No Other Objective Vitals Vital Signs Date Time Temp Pulse Resp B/P (MAP) Pulse Ox O2 Delivery O2 Flow Rate FiO2 02/10/24 12:07 72 20 106/58 (74) 100 30 02/10/24 12:00 Mechanical Ventilator+ 02/10/24 08:00 98.6 98.6 Intake/Output Intake and Output 02/10/24 07:00 Intake Total 1918.068 ml Output Total 1925 ml Balance -6.932 ml Intake Oral 120 ml IV Total 1123.068 ml Tube Feeding 675 ml Output Urine Total 1925 ml General Appearance: Other (intubated/sedated) Lungs: Clear to auscultation Cardiovascular: Regular rate, Normal S1, Normal S2 Abdomen: Normal bowel sounds, Soft, No tenderness Musculoskeletal: Other (sedated on vent/) Extremities: No edema, Normal pulses Skin: Intact Medications Current Medications Medications Dose Ordered Sig/Compa Route Start Time Stop Time Status Last Admin Dose Admin Acetaminophen 1,000 mg [id number] PRN IV 01/31/24 20:00 01/31/24 20:01 Cancel Ceftriaxone Sodium 50 ml @ 100 mls/hr DAILY@09 IV 02/01/24 09:00 02/10/24 09:48 100 MLS/HR Azithromycin 250 ml @ 125 mls/hr DAILY IV 02/01/24 10:00 02/10/24 09:48 125 MLS/HR Pantoprazole Sodium 40 mg DAILY IV 02/01/24 10:00 02/10/24 09:48 40 MG Aspirin 81 mg DAILY PO 02/01/24 10:00 02/10/24 09:51 81 MG Atorvastatin Calcium 40 mg HS PO 02/01/24 22:00 02/09/24 21:31 40 MG Enoxaparin Sodium 40 mg DAILY SC 02/01/24 10:00 02/10/24 09:49 40 MG Acetaminophen 650 mg Q6HP PRN MA 02/02/24 00:00 02/02/24 00:44 650 MG Norepinephrine Bitartrate 250 ml @ 3.75 mls/hr Q24H IV 02/02/24 06:15 02/09/24 11:00 3.75 MLS/HR Polyethylene Glycol 17 gm DAILY PO 02/04/24 10:00 02/10/24 09:48 17 GM Quetiapine Fumarate 25 mg BID PO 02/05/24 22:00 02/10/24 09:50 25 MG Enteral Nutritional Formula 1,000 ml 50ML/HR GT 02/07/24 16:00 02/08/24 16:36 1,000 ML Clonazepam 1 mg Q12HR PO 02/07/24 22:00 02/10/24 09:53 1 MG Midazolam HCl 2 mg Q2HPRN PRN IV 02/08/24 01:15 02/08/24 02:25 2 MG Midazolam HCl 50 ml @ 1 mls/hr Q24H IV 02/08/24 03:30 02/10/24 06:03 3 MLS/HR Propofol 100 ml @ 3.099 mls/ hr Q24H IV 02/08/24 09:45 02/09/24 23:43 3.099 MLS/HR Methylprednisolone Sodium Succinate 40 mg TID IV 02/08/24 14:00 02/10/24 05:55 40 MG Furosemide 40 mg DAILY IV 02/09/24 10:00 02/10/24 09:48 40 MG Amiodarone HCl 200 mg Q12HR PO 02/09/24 22:00 02/10/24 09:50 200 MG Sennosides 17.2 mg HS PO 02/09/24 22:00 02/09/24 21:31 17.2 MG Methadone HCl 20 mg DAILY PO 02/10/24 10:00 02/10/24 09:50 20 MG Albuterol 2.5 mg Q8HR NEB 02/09/24 14:00 02/10/24 07:10 2.5 MG Ipratropium [place] 0.5 mg Q8HR NEB 02/09/24 14:00 02/10/24 07:10 0.5 MG Albuterol 2.5 mg Q4HPRN PRN NEB 02/09/24 13:45 Ipratropium [place] 0.5 mg Q4HPRN PRN NEB 02/09/24 13:45 Fentanyl Citrate 250 ml @ 2.5 mls/hr Q24H IV 02/09/24 23:00 02/10/24 06:49 25 MLS/HR Laboratory Results Laboratory Tests 02/10/24 03:27 Chemistry Test 02/10/24 03:27 Calcium Level 9.1 mg/dL (8.7-10.4) Magnesium Level 2.2 mg/dL (1.6-2.6) Phosphorus Level 3.8 mg/dL (2.4-5.1) Urinalysis Test 02/02/24 00:10 Urine Color Yellow (Yellow) Urine Clarity Turbid (Clear) H Urine pH 5.0 (5.0-9.0) Urine Specific [place] 1.013 (1.001-1.035) Urine Protein Negative (Negative) Urine Ketones Negative (Negative) Urine Blood Negative /uL (Negative) Urine Nitrite Negative (Negative) Urine Bilirubin Negative (Negative) Urine Urobilinogen Normal mg/dL (Negative) Urine Leukocyte Esterase Negative /uL (Negative) Urine RBC None seen /hpf (0 - 3) Urine WBC None seen /hpf (0 - 3) Urine Squamous Epithelial Cells None seen /hpf (<5) Urine Bacteria None seen /hpf (None Seen) Urine Glucose Normal mg/dL (Normal) Blood Gas Results Test 02/10/24 08:07 Arterial Blood pH 7.353 (7.350-7.450) FiO2 % 30.0 Microbiology Microbiology Date/Time Source Procedure Growth Status 02/02/24 05:00 Nose MRSA Screen - Final Complete 02/02/24 05:00 Urine - [place] Urine Culture - Final Complete 01/31/24 21:30 Blood Blood Culture - Final NO GROWTH AFTER 5 DAYS OF INCUBATION. Complete 01/31/24 19:45 Sputum Gram Stain - Final Resulted 01/31/24 19:45 Sputum Respiratory Culture - Preliminary Resulted Labs and/or images reviewed: Labs reviewed by me Assessment/Plan Assessment/Plan acute respiratory faiure astma exacerbation vent status- f/by pulmonary drug abuse- just stablilizing from withdrawl and pulmonary is planning to plan cpap trial 02/12/24 dvt prophylaxis Plan discussed with: Other Date of Service: Feb 10, 2024 Billing Provider: BON DURAN MD Common Visit Codes: 34199-[id number] CARE 30-74 MIN BON DURAN MD Feb 10, 2024 12:31
--- NOTE | 2024-02-10 16:27 | DVHPN2 ---
Progress Note - Dictate Date Seen: Feb 10, 2024 Medical Necessity Reason Pt with a Central, PICC or Fol: Yes The following are medically ne: Mckeon Catheter Reason for mckeon catheter: Strict I&O Subjective Patient seen and examined at bedside. Sedated, intubated on mechanical ventilator. Overnight events reviewed. vital signs Vital Sign Date Time Temp Pulse Resp B/P (MAP) Pulse Ox O2 Delivery O2 Flow Rate FiO2 02/10/24 15:48 64 20 119/65 (83) 99 30 02/10/24 14:00 Mechanical Ventilator+ 02/10/24 12:00 98.5 98.5 Total Intake and Output 02/09/24 02/09/24 02/10/24 15:00 23:00 07:00 Intake Total 496.984 ml 651.792 ml 769.292 ml Output Total 900 ml 1025 ml Balance 496.984 ml -248.208 ml -255.708 ml medications Current Medications Medications Dose Ordered Sig/Compa Route Start Time Stop Time Status Last Admin Dose Admin Acetaminophen 1,000 mg [id number] PRN IV 01/31/24 20:00 01/31/24 20:01 Cancel Ceftriaxone Sodium 50 ml @ 100 mls/hr DAILY@09 IV 02/01/24 09:00 02/10/24 09:48 100 MLS/HR Azithromycin 250 ml @ 125 mls/hr DAILY IV 02/01/24 10:00 02/10/24 09:48 125 MLS/HR Pantoprazole Sodium 40 mg DAILY IV 02/01/24 10:00 02/10/24 09:48 40 MG Aspirin 81 mg DAILY PO 02/01/24 10:00 02/10/24 09:51 81 MG Atorvastatin Calcium 40 mg HS PO 02/01/24 22:00 02/09/24 21:31 40 MG Enoxaparin Sodium 40 mg DAILY SC 02/01/24 10:00 02/10/24 09:49 40 MG Acetaminophen 650 mg Q6HP PRN OR 02/02/24 00:00 02/02/24 00:44 650 MG Norepinephrine Bitartrate 250 ml @ 3.75 mls/hr Q24H IV 02/02/24 06:15 02/09/24 11:00 3.75 MLS/HR Polyethylene Glycol 17 gm DAILY PO 02/04/24 10:00 02/10/24 09:48 17 GM Quetiapine Fumarate 25 mg BID PO 02/05/24 22:00 02/10/24 09:50 25 MG Enteral Nutritional Formula 1,000 ml 50ML/HR GT 02/07/24 16:00 02/08/24 16:36 1,000 ML Clonazepam 1 mg Q12HR PO 02/07/24 22:00 02/10/24 09:53 1 MG Midazolam HCl 2 mg Q2HPRN PRN IV 02/08/24 01:15 02/08/24 02:25 2 MG Midazolam HCl 50 ml @ 1 mls/hr Q24H IV 02/08/24 03:30 02/10/24 12:50 3 MLS/HR Propofol 100 ml @ 3.099 mls/ hr Q24H IV 02/08/24 09:45 02/09/24 23:43 3.099 MLS/HR Methylprednisolone Sodium Succinate 40 mg TID IV 02/08/24 14:00 02/10/24 13:52 40 MG Furosemide 40 mg DAILY IV 02/09/24 10:00 02/10/24 09:48 40 MG Amiodarone HCl 200 mg Q12HR PO 02/09/24 22:00 02/10/24 09:50 200 MG Sennosides 17.2 mg HS PO 02/09/24 22:00 02/09/24 21:31 17.2 MG Methadone HCl 20 mg DAILY PO 02/10/24 10:00 02/10/24 09:50 20 MG Albuterol 2.5 mg Q8HR NEB 02/09/24 14:00 02/10/24 14:02 2.5 MG Ipratropium [place] 0.5 mg Q8HR NEB 02/09/24 14:00 02/10/24 14:02 0.5 MG Albuterol 2.5 mg Q4HPRN PRN NEB 02/09/24 13:45 Ipratropium [place] 0.5 mg Q4HPRN PRN NEB 02/09/24 13:45 Fentanyl Citrate 250 ml @ 2.5 mls/hr Q24H IV 02/09/24 23:00 02/10/24 16:24 25 MLS/HR objective Gen.: Patient lying in bed in medical ICU. Sedated, intubated on mechanical ventilator. Head: Normocephalic, atraumatic. Eyes: PERRLA. Ears: Normal external anatomy. Throat: Endotracheal tube and orogastric tube in place. Neck: Supple, trachea midline. Chest: Transmitted breath sounds bilaterally. Decreased air entry bilaterally. Bilateral wheezing present. Bibasilar crackles. Cardiovascular: Positive S1, positive S2. Regular rate and rhythm. Abdomen: Positive bowel sounds in all 4 quadrants. Soft, nontender, nondistended. : Mckeon in place. Normal external genitalia. Rectal: Deferred. Skin: Warm, dry. Intact. Extremities: 2+ radial pulses bilaterally. No lower extremity edema. Neuro: Sedated. laboratory and microbiology Laboratory Tests 02/10/24 03:27 Test 02/10/24 03:27 Range/Units Serum Glucose 124 H 74-106 mg/dL Assessment/Plan Impression: Acute hypoxic respiratory failure On mechanical ventilator Asthma exacerbation Likely community-acquired pneumonia Likely NSTEMI type 2 Acute sepsis Recurrent hyperkalemia Overweight, BMI 28.8 Events: Remains on vent support On AC mode; RR 20, VT 500, PEEP 5, FiO2 of 30%. (RR was tapered from 24 to 20 BPM) ABG reviewed, compensated. CXR demonstrates devices in place. Moderate pulmonary vascular congestion. Small bilateral pleural effusions, right greater than left. No pneumothorax. Off Levophed, hemodynamically stable. Sedated on Propofol, Fentanyl, Versed Off Ketamine and Precedex Tube feeds for nutritional support. Continue antibiotics IV steroids - taper as tolerated Continue bronchodilators Off amiodarone. Taper sedation as tolerated CPAP once patient is awake, alert and following commands Labs and imaging reviewed. Rest of plan as noted below. Plan: s/p intubation on mechanical ventilator. On AC mode; RR 20, VT 500, PEEP 5, FiO2 of 30%. Titrate FIO2 to keep O2 saturation above 90%. VAP bundle. Daily ABG and CXR while intubated Sedate for ventilator synchrony Off pressors, hemodynamically stable. Continue bronchodilators. IV steroids Continue antibiotics. F/u cultures. Start pressors if necessary for hemodynamic support Titrate to keep mean arterial pressure greater than 65 mmHg. Monitor renal function Monitor electrolytes. Supplement as necessary. Monitor ins and outs. Maintain euvolemia. GI prophylaxis - Protonix. DVT prophylaxis - Lovenox. Prognosis: Poor given patient's multiple co-morbidities. Condition: Critical Rest of plan per hospitalist and other consultants. A total of 35 minutes of critical care time was spent reviewing the patient record, examining the patient, making a diagnostic and therapeutic plan, discussing this plan with the medical personnel, following up on diagnostic studies and following the patient for clinical stability excluding any and all procedures. At least 50% of this time was spent in direct, [id number] contact. Thank you Dr. Jim Ojeda MD, for allowing me to participate in this patient's care. Further recommendations will depend on the patient's clinical course. Please do not hesitate to contact me if you have any questions or concerns. This medical document was created using an electronic medical record system with [employer] dictation system. Although these documentations are being carefully reviewed, there may still be some phonetic and typographical changes. The errors are purely typographical, due to imperfection on the software program, and do not reflect any compromise in the patient's medical care. Dietary Evaluation Review Comments: 1) Increase Jevity 1.2 to 55ml/hr x 24hr goal rate as tolerated to meet estimated needs 2) Advance pt diet when medicall feasible 3) Continue current plan of care Expected Outcomes/Goals: 1) Pt to receive adequate nutrition support within 7 days of NPO status 2) Pt diet to advance 3) F/U in 2-3 days Plan discussed with: Other (IVANA Garcia) Critical Care Time(min): 35 WARREN POWELL MD Feb 10, 2024 16:27
--- NOTE | 2024-02-10 23:37 | DVHPN2 ---
Progress Note - Dictate Date Seen: Feb 10, 2024 Medical Necessity Reason Pt with a Central, PICC or Fol: Yes The following are medically ne: Mckeon Catheter Reason for mckeon catheter: Strict I&O Subjective Patient was seen and evaluated in follow-up in the ICU. Patient is intubated and sedated on ventilator. 30% FiO2. WBC 13.5, NA 146, CL 109, CO2 32, BUN 42. Chest x-ray shows the heart is prominent size, small bilateral pleural effusions, right greater than left, moderate pulmonary vascular congestion. No pneumothorax. vital signs Vital Sign Date Time Temp Pulse Resp B/P (MAP) Pulse Ox O2 Delivery O2 Flow Rate FiO2 02/10/24 20:30 70 20 129/73 (91) 99 02/10/24 20:08 30 02/10/24 20:00 Mechanical Ventilator+ 02/10/24 20:00 98.6 98.6 Total Intake and Output 02/09/24 02/09/24 02/10/24 15:00 23:00 07:00 Intake Total 496.984 ml 651.792 ml 769.292 ml Output Total 900 ml 1025 ml Balance 496.984 ml -248.208 ml -255.708 ml medications Current Medications Medications Dose Ordered Sig/Compa Route Start Time Stop Time Status Last Admin Dose Admin Acetaminophen 1,000 mg [id number] PRN IV 01/31/24 20:00 01/31/24 20:01 Cancel Ceftriaxone Sodium 50 ml @ 100 mls/hr DAILY@09 IV 02/01/24 09:00 02/10/24 09:48 100 MLS/HR Azithromycin 250 ml @ 125 mls/hr DAILY IV 02/01/24 10:00 02/10/24 09:48 125 MLS/HR Pantoprazole Sodium 40 mg DAILY IV 02/01/24 10:00 02/10/24 09:48 40 MG Aspirin 81 mg DAILY PO 02/01/24 10:00 02/10/24 09:51 81 MG Atorvastatin Calcium 40 mg HS PO 02/01/24 22:00 02/09/24 21:31 40 MG Enoxaparin Sodium 40 mg DAILY SC 02/01/24 10:00 02/10/24 09:49 40 MG Acetaminophen 650 mg Q6HP PRN SC 02/02/24 00:00 02/02/24 00:44 650 MG Norepinephrine Bitartrate 250 ml @ 3.75 mls/hr Q24H IV 02/02/24 06:15 02/09/24 11:00 3.75 MLS/HR Polyethylene Glycol 17 gm DAILY PO 02/04/24 10:00 02/10/24 09:48 17 GM Quetiapine Fumarate 25 mg BID PO 02/05/24 22:00 02/10/24 09:50 25 MG Enteral Nutritional Formula 1,000 ml 50ML/HR GT 02/07/24 16:00 02/08/24 16:36 1,000 ML Clonazepam 1 mg Q12HR PO 02/07/24 22:00 02/10/24 09:53 1 MG Midazolam HCl 2 mg Q2HPRN PRN IV 02/08/24 01:15 02/08/24 02:25 2 MG Midazolam HCl 50 ml @ 1 mls/hr Q24H IV 02/08/24 03:30 02/10/24 12:50 3 MLS/HR Propofol 100 ml @ 3.099 mls/ hr Q24H IV 02/08/24 09:45 02/10/24 17:42 6.198 MLS/HR Methylprednisolone Sodium Succinate 40 mg TID IV 02/08/24 14:00 02/10/24 13:52 40 MG Furosemide 40 mg DAILY IV 02/09/24 10:00 02/10/24 09:48 40 MG Amiodarone HCl 200 mg Q12HR PO 02/09/24 22:00 02/10/24 09:50 200 MG Sennosides 17.2 mg HS PO 02/09/24 22:00 02/09/24 21:31 17.2 MG Methadone HCl 20 mg DAILY PO 02/10/24 10:00 02/10/24 09:50 20 MG Albuterol 2.5 mg Q8HR NEB 02/09/24 14:00 02/10/24 14:02 2.5 MG Ipratropium [place] 0.5 mg Q8HR NEB 02/09/24 14:00 02/10/24 14:02 0.5 MG Albuterol 2.5 mg Q4HPRN PRN NEB 02/09/24 13:45 Ipratropium [place] 0.5 mg Q4HPRN PRN NEB 02/09/24 13:45 Fentanyl Citrate 250 ml @ 2.5 mls/hr Q24H IV 02/09/24 23:00 02/10/24 16:24 25 MLS/HR objective GENERAL: Intubated on ventilator. Obese. LUNGS: Decreased breath sounds. CARDIOVASCULAR: Heart sounds are good. ABDOMEN: Soft. EXT: Cool to touch. SKIN: Hyperpigmentation to bilateral lower extremities laboratory and microbiology Laboratory Tests 02/10/24 03:27 Test 02/10/24 03:27 Range/Units Serum Glucose 124 H 74-106 mg/dL Problem List Atrial fibrillation/flutter, new onset, now normal sinus rhythm. Hypertensive urgency, now hypotensive. NSTEMI type II. Acute hypoxic respiratory failure. Polysubstance abuse. Obese. Assessment/Plan Continued all current supportive medical care. Amiodarone. Aspirin, Lipitor. IV antibiotics as ordered. DVT prophylactics. Diuretics with Lasix. Vasopressors for hemodynamic support. Additional plan as per the hospital course. Critical care time of 90 minutes provided to include time spent evaluation of patient at bedside, when appropriate patient/family education for diagnosis, treatment plan, review of pertinent medical information and discussion of care with specialty providers and PCP. Mechanical ventilator parameters, treatment and adjustments have personally been reviewed by me and treatment plan by power nut runner operator has also been reviewed. Dietary Evaluation Review Comments: 1) Increase Jevity 1.2 to 55ml/hr x 24hr goal rate as tolerated to meet estimated needs 2) Advance pt diet when medicall feasible 3) Continue current plan of care Expected Outcomes/Goals: 1) Pt to receive adequate nutrition support within 7 days of NPO status 2) Pt diet to advance 3) F/U in 2-3 days Plan discussed with: ROSARIO Galvin MD Feb 10, 2024 22:06
[2024-02-11] VITALS (90 sets, daily range): BP systolic 103–183; BP diastolic 51–111; PULSE 48–93; RESP 9–30; TEMP 98.2–99.4; O2SAT 86–100
[2024-02-11 04:13] LABS: Basophils # (auto) 0 10 ^3/uL (0-0.2); Basophils % (auto) 0.1 % (0.0-2.0); Eosinophils # (auto) 0 10 ^3/uL (0-0.8); Hematocrit 41.5 % (41.0-53.0); Hemoglobin 13.5 g/dL (13.5-17.5); Lymphocytes % (auto) 7.8 % (10.0-50.0); Mean Corpuscular Hgb Conc. 32.5 g/dL (32.0-36.0); Monocytes # (auto) 0.8 10 ^3/uL (0-1.3); Monocytes % (auto) 6.4 % (0.0-12.0); Neutrophils # (auto) 10.6 10 ^3/uL (1.6-8.6); Neutrophils % (auto) 85.7 % (37.0-80.0); Platelet Count (auto) 172 10^3/uL (140-450); Red Blood Cells 4.67 10^6/uL (4.5-5.90); Red Cell Distribution Width 14.6 % (11.8-14.3); White Blood Cell 12.4 10^3/uL (4.4-10.8)
[2024-02-11 04:28] LABS: Albumin 3.4 g/dL (3.2-4.8); Anion Gap 4 (5-15); Aspartate Aminotransferase 30 U/L (13-40); BUN/Creatinine Ratio 48.1 (10.0-20.0); Bilirubin, Total 0.3 mg/dL (0.2-1.0); Calcium 9.4 mg/dL (8.7-10.4); Magnesium 2.2 mg/dL (1.6-2.6); Potassium 4.5 mmol/L (3.5-5.1)
[2024-02-11 04:51] LABS: Alanine Aminotransferase 171 U/L (7-40); Alkaline Phosphatase 133 U/L (46-116); Blood Urea Nitrogen 38 mg/dL (9-23); Carbon Dioxide 34 mmol/L (20-31); Chloride 108 mmol/L (98-107); Glucose 119 mg/dL (74-106); Sodium 146 mmol/L (136-145); Total Protein 5.3 g/dL (5.7-8.2)
--- NOTE | 2024-02-11 05:41 | DVH ---
CHEST RADIOGRAPH Indication: FOLLOW UP, PT. INTUBATED. Technique: Single frontal view of the chest was obtained Comparison: XY CHEST PORTABLE on DOS: 02/10/24, XY CHEST PORTABLE on DOS: 02/09/24, XY CHEST PORTABLE on DOS: 02/08/24 IMPRESSION: There is cardiomegaly. Support lines and tubes appear unchanged in satisfactory position. Small to m oderate bilateral pleural effusions appear unchanged. No discrete pneumothorax.
[2024-02-11 07:35] LABS: Base Excess 5.7 mmol/L (-2.0-3.0)
--- NOTE | 2024-02-11 10:58 | DVHPN2 ---
Subjective chart reviwed d/w nurse Changes from previous H/P or p: No Changes Eyes: No Pain, No Vision change, No Conjunctivae inflammation, No Eyelid inflammation, No Other, No Redness ENT: No Ear pain, No Ear discharge, No Nose pain, No Nose discharge, No Nose congestion, No Mouth pain, No Mouth swelling, No Throat pain, No Throat swelling, No Other Cardiovascular: No Chest Pain, No Palpitations, No Orthopnea, No Paroxysmal Noc. Dyspnea, No Edema, No Lt Headedness, No Other Respiratory: Cough, Dry, Shortness of breath, SOB with excertion, Wheezing; No Hemoptysis, No Pleuritic Pain, No Sputum, No Other Gastrointestinal: No Nausea, No Vomiting, No Abdominal Pain, No Diarrhea, No Constipation, No Melena, No Hematochezia, No Other Genitourinary: No Dysuria, No Frequency, No Incontinence, No Hematuria, No Retention, No Other Musculoskeletal: No other, No neck pain, No shoulder pain, No arm pain, No back pain, No hand pain, No leg pain, No foot pain Skin: No Rash, No Lesions, No Jaundice, No Bruising, No Other Objective Vitals Vital Signs Date Time Temp Pulse Resp B/P (MAP) Pulse Ox O2 Delivery O2 Flow Rate FiO2 02/11/24 09:58 85 20 146/83 (104) 100 30 02/11/24 06:00 Mechanical Ventilator+ 02/11/24 04:00 98.4 98.4 Intake/Output Intake and Output 02/11/24 07:00 Intake Total 2107.714 ml Output Total 3000 ml Balance -892.286 ml Intake Oral 120 ml IV Total 1099.714 ml Tube Feeding 888 ml Output Urine Total 3000 ml General Appearance: Alert, Oriented X3, Cooperative, No acute distress, Other (intubated/sedated) Lungs: Clear to auscultation Cardiovascular: Regular rate, Normal S1, Normal S2 Abdomen: Normal bowel sounds, Soft, No tenderness Musculoskeletal: Other (sedated on vent/) Extremities: No edema, Normal pulses Skin: Intact Medications Current Medications Medications Dose Ordered Sig/Compa Route Start Time Stop Time Status Last Admin Dose Admin Acetaminophen 1,000 mg [id number] PRN IV 01/31/24 20:00 01/31/24 20:01 Cancel Ceftriaxone Sodium 50 ml @ 100 mls/hr DAILY@09 IV 02/01/24 09:00 02/11/24 09:43 100 MLS/HR Azithromycin 250 ml @ 125 mls/hr DAILY IV 02/01/24 10:00 02/11/24 09:54 125 MLS/HR Pantoprazole Sodium 40 mg DAILY IV 02/01/24 10:00 02/11/24 09:44 40 MG Aspirin 81 mg DAILY PO 02/01/24 10:00 02/10/24 09:51 81 MG Atorvastatin Calcium 40 mg HS PO 02/01/24 22:00 02/10/24 22:11 40 MG Enoxaparin Sodium 40 mg DAILY SC 02/01/24 10:00 02/11/24 09:53 40 MG Acetaminophen 650 mg Q6HP PRN [place] 02/02/24 00:00 02/02/24 00:44 650 MG Norepinephrine Bitartrate 250 ml @ 3.75 mls/hr Q24H IV 02/02/24 06:15 02/09/24 11:00 3.75 MLS/HR Polyethylene Glycol 17 gm DAILY PO 02/04/24 10:00 02/10/24 09:48 17 GM Quetiapine Fumarate 25 mg BID PO 02/05/24 22:00 02/10/24 22:11 25 MG Enteral Nutritional Formula 1,000 ml 50ML/HR GT 02/07/24 16:00 02/11/24 06:03 1,000 ML Clonazepam 1 mg Q12HR PO 02/07/24 22:00 02/10/24 22:11 1 MG Midazolam HCl 2 mg Q2HPRN PRN IV 02/08/24 01:15 02/08/24 02:25 2 MG Midazolam HCl 50 ml @ 1 mls/hr Q24H IV 02/08/24 03:30 02/11/24 01:34 3 MLS/HR Propofol 100 ml @ 3.099 mls/ hr Q24H IV 02/08/24 09:45 02/10/24 17:42 6.198 MLS/HR Methylprednisolone Sodium Succinate 40 mg TID IV 02/08/24 14:00 02/11/24 06:03 40 MG Furosemide 40 mg DAILY IV 02/09/24 10:00 02/11/24 09:44 40 MG Amiodarone HCl 200 mg Q12HR PO 02/09/24 22:00 02/10/24 22:11 200 MG Sennosides 17.2 mg HS PO 02/09/24 22:00 02/10/24 22:11 17.2 MG Methadone HCl 20 mg DAILY PO 02/10/24 10:00 02/10/24 09:50 20 MG Albuterol 2.5 mg Q8HR NEB 02/09/24 14:00 02/11/24 06:16 2.5 MG Ipratropium [place] 0.5 mg Q8HR NEB 02/09/24 14:00 02/11/24 06:17 0.5 MG Albuterol 2.5 mg Q4HPRN PRN NEB 02/09/24 13:45 Ipr[address]ropium [place] 0.5 mg Q4HPRN PRN NEB 02/09/24 13:45 Fentanyl Citrate 250 ml @ 2.5 mls/hr Q24H IV 02/09/24 23:00 02/11/24 09:45 2.5 MLS/HR Laboratory Results Laboratory Tests 02/11/24 03:18 Chemistry Test 02/11/24 03:18 Albumin 3.4 g/dL (3.2-4.8) Calcium Level 9.4 mg/dL (8.7-10.4) Magnesium Level 2.2 mg/dL (1.6-2.6) Phosphorus Level 3.0 mg/dL (2.4-5.1) Total Protein 5.3 g/dL (5.7-8.2) L LFT Test 02/11/24 03:18 Alanine Aminotransferase (ALT) 171 U/L (7-40) H Alkaline Phosphatase 133 U/L (46-116) H Aspartate Amino Transferase (AST) 30 U/L (13-40) Total Bilirubin 0.3 mg/dL (0.2-1.0) Urinalysis Test 02/02/24 00:10 Urine Color Yellow (Yellow) Urine Clarity Turbid (Clear) H Urine pH 5.0 (5.0-9.0) Urine Specific [place] 1.013 (1.001-1.035) Urine Protein Negative (Negative) Urine Ketones Negative (Negative) Urine Blood Negative /uL (Negative) Urine Nitrite Negative (Negative) Urine Bilirubin Negative (Negative) Urine Urobilinogen Normal mg/dL (Negative) Urine Leukocyte Esterase Negative /uL (Negative) Urine RBC None seen /hpf (0 - 3) Urine WBC None seen /hpf (0 - 3) Urine Squamous Epithelial Cells None seen /hpf (<5) Urine Bacteria None seen /hpf (None Seen) Urine Glucose Normal mg/dL (Normal) Blood Gas Results Test 02/11/24 07:18 Arterial Blood pH 7.386 (7.350-7.450) FiO2 % 30.0 Microbiology Microbiology Date/Time Source Procedure Growth Status 02/02/24 05:00 Nose MRSA Screen - Final Complete 02/02/24 05:00 Urine - [place] Urine Culture - Final Complete 01/31/24 21:30 Blood Blood Culture - Final NO GROWTH AFTER 5 DAYS OF INCUBATION. Complete 01/31/24 19:45 Sputum Gram Stain - Final Resulted 01/31/24 19:45 Sputum Respiratory Culture - Preliminary Resulted Labs and/or images reviewed: Labs reviewed by me, Image(s) reviewed by me Assessment/Plan Assessment/Plan acute respiratory faiure astma exacerbation vent status- f/by pulmonary drug abuse- just stablilizing from withdrawl /plan is to extubate today if ok with pulmonary dvt prophylaxis htn adjust meds Plan discussed with: Patient, Other Date of Service: Feb 11, 2024 Billing Provider: BON DURAN MD Common Visit Codes: [id number] CARE 30-74 MIN BON DURAN MD Feb 11, 2024 10:58
[2024-02-11] MEDS: EPINEPHrine HCL 0.5 ML NEB ONE (11:16)
--- NOTE | 2024-02-11 15:40 | DVHPN2 ---
Progress Note - Dictate Date Seen: Feb 11, 2024 Medical Necessity Reason Pt with a Central, PICC or Fol: Yes The following are medically ne: Mckeon Catheter Reason for mckeon catheter: Strict I&O Subjective Patient was seen and evaluated in follow up in the ICU. Patient was successfully extubated this morning. Patient is on Bi-PAP 50% FiO2. Patient is complaining of SOB and a sore throat. WBC 12.4, NA 146, CL 108, CO2 34, BUN 38. vital signs Vital Sign Date Time Temp Pulse Resp B/P (MAP) Pulse Ox O2 Delivery O2 Flow Rate FiO2 02/11/24 13:35 76 103/61 92 Facial BiPAP Mask 50 02/11/24 13:32 10 02/11/24 13:25 10.0 02/11/24 04:00 98.4 98.4 Total Intake and Output 02/10/24 02/10/24 02/11/24 15:00 23:00 07:00 Intake Total 567.338 ml 743.584 ml 796.792 ml Output Total 1650 ml 1350 ml Balance -1082.662 ml 743.584 ml -553.208 ml medications Current Medications Medications Dose Ordered Sig/Compa Route Start Time Stop Time Status Last Admin Dose Admin Acetaminophen 1,000 mg [id number] PRN IV 01/31/24 20:00 01/31/24 20:01 Cancel Ceftriaxone Sodium 50 ml @ 100 mls/hr DAILY@09 IV 02/01/24 09:00 02/11/24 09:43 100 MLS/HR Azithromycin 250 ml @ 125 mls/hr DAILY IV 02/01/24 10:00 02/11/24 09:54 125 MLS/HR Pantoprazole Sodium 40 mg DAILY IV 02/01/24 10:00 02/11/24 09:44 40 MG Aspirin 81 mg DAILY PO 02/01/24 10:00 02/11/24 11:33 81 MG Atorvastatin Calcium 40 mg HS PO 02/01/24 22:00 02/10/24 22:11 40 MG Enoxaparin Sodium 40 mg DAILY SC 02/01/24 10:00 02/11/24 09:53 40 MG Acetaminophen 650 mg Q6HP PRN [place] 02/02/24 00:00 02/02/24 00:44 650 MG Norepinephrine Bitartrate 250 ml @ 3.75 mls/hr Q24H IV 02/02/24 06:15 02/09/24 11:00 3.75 MLS/HR Polyethylene Glycol 17 gm DAILY PO 02/04/24 10:00 02/10/24 09:48 17 GM Quetiapine Fumarate 25 mg BID PO 02/05/24 22:00 02/11/24 11:34 25 MG Enteral Nutritional Formula 1,000 ml 50ML/HR GT 02/07/24 16:00 02/11/24 06:03 1,000 ML Clonazepam 1 mg Q12HR PO 02/07/24 22:00 02/11/24 11:34 1 MG Midazolam HCl 2 mg Q2HPRN PRN IV 02/08/24 01:15 02/08/24 02:25 2 MG Midazolam HCl 50 ml @ 1 mls/hr Q24H IV 02/08/24 03:30 02/11/24 01:34 3 MLS/HR Propofol 100 ml @ 3.099 mls/ hr Q24H IV 02/08/24 09:45 02/10/24 17:42 6.198 MLS/HR Methylprednisolone Sodium Succinate 40 mg TID IV 02/08/24 14:00 02/11/24 06:03 40 MG Furosemide 40 mg DAILY IV 02/09/24 10:00 02/11/24 09:44 40 MG Amiodarone HCl 200 mg Q12HR PO 02/09/24 22:00 02/11/24 11:32 200 MG Sennosides 17.2 mg HS PO 02/09/24 22:00 02/10/24 22:11 17.2 MG Methadone HCl 20 mg DAILY PO 02/10/24 10:00 02/11/24 11:32 20 MG Albuterol 2.5 mg Q8HR NEB 02/09/24 14:00 02/11/24 11:21 2.5 MG Ipratropium [place] 0.5 mg Q8HR NEB 02/09/24 14:00 02/11/24 11:21 0.5 MG Albuterol 2.5 mg Q4HPRN PRN NEB 02/09/24 13:45 Ipratropium [place] 0.5 mg Q4HPRN PRN NEB 02/09/24 13:45 Fentanyl Citrate 250 ml @ 2.5 mls/hr Q24H IV 02/09/24 23:00 02/11/24 09:45 2.5 MLS/HR Hydralazine HCl 10 mg Q6HP PRN IV 02/11/24 11:00 objective GENERAL: Awake, alert, oriented. Obese. LUNGS: Decreased breath sounds. CARDIOVASCULAR: Heart sounds are good. ABDOMEN: Soft. EXT: Cool to touch. SKIN: Hyperpigmentation to bilateral lower extremities laboratory and microbiology Laboratory Tests 02/11/24 03:18 Test 02/11/24 03:18 Range/Units Serum Glucose 119 H 74-106 mg/dL Problem List Atrial fibrillation/flutter, new onset, now normal sinus rhythm. Hypertensive urgency, now hypotensive. NSTEMI type II. Acute hypoxic respiratory failure. Polysubstance abuse. Obese. Assessment/Plan Continued all current supportive medical care. Amiodarone. Aspirin, Lipitor. IV antibiotics as ordered. DVT prophylactics. Diuretics with Lasix. Vasopressors for hemodynamic support. Additional plan as per the hospital course. Critical care time of 90 minutes provided to include time spent evaluation of patient at bedside, when appropriate patient/family education for diagnosis, treatment plan, review of pertinent medical information and discussion of care with specialty providers and PCP. Dietary Evaluation Review Comments: 1) Increase Jevity 1.2 to 55ml/hr x 24hr goal rate as tolerated to meet estimated needs 2) Advance pt diet when medicall feasible 3) Continue current plan of care Expected Outcomes/Goals: 1) Pt to receive adequate nutrition support within 7 days of NPO status 2) Pt diet to advance 3) F/U in 2-3 days Plan discussed with: Patient ROSARIO GENTILE MD Feb 11, 2024 13:54
[2024-02-11] MEDS: hydrALAZINE HCL 20 MG/ML VL IV PRN (18:52)
--- NOTE | 2024-02-11 21:08 | DVHPN2 ---
Progress Note - Dictate Date Seen: Feb 11, 2024 Medical Necessity Reason Pt with a Central, PICC or Fol: Yes The following are medically ne: Mckeon Catheter Reason for mckeon catheter: Strict I&O Subjective Patient seen and examined at bedside. Extubated, on supplemental oxygen Overnight events reviewed. vital signs Vital Sign Date Time Temp Pulse Resp B/P (MAP) Pulse Ox O2 Delivery O2 Flow Rate FiO2 02/11/24 19:00 82 18 167/101 (123) 94 02/11/24 18:31 Nasal Cannula* 3 32 02/11/24 16:01 98.9 98.9 Total Intake and Output 02/10/24 02/10/24 02/11/24 15:00 23:00 07:00 Intake Total 567.338 ml 743.584 ml 796.792 ml Output Total 1650 ml 1350 ml Balance -1082.662 ml 743.584 ml -553.208 ml medications Current Medications Medications Dose Ordered Sig/Compa Route Start Time Stop Time Status Last Admin Dose Admin Acetaminophen 1,000 mg [id number] PRN IV 01/31/24 20:00 01/31/24 20:01 Cancel Ceftriaxone Sodium 50 ml @ 100 mls/hr DAILY@09 IV 02/01/24 09:00 02/11/24 09:43 100 MLS/HR Azithromycin 250 ml @ 125 mls/hr DAILY IV 02/01/24 10:00 02/11/24 09:54 125 MLS/HR Pantoprazole Sodium 40 mg DAILY IV 02/01/24 10:00 02/11/24 09:44 40 MG Aspirin 81 mg DAILY PO 02/01/24 10:00 02/11/24 11:33 81 MG Atorvastatin Calcium 40 mg HS PO 02/01/24 22:00 02/10/24 22:11 40 MG Enoxaparin Sodium 40 mg DAILY SC 02/01/24 10:00 02/11/24 09:53 40 MG Acetaminophen 650 mg Q6HP PRN [place] 02/02/24 00:00 02/02/24 00:44 650 MG Norepinephrine Bitartrate 250 ml @ 3.75 mls/hr Q24H IV 02/02/24 06:15 02/09/24 11:00 3.75 MLS/HR Polyethylene Glycol 17 gm DAILY PO 02/04/24 10:00 02/10/24 09:48 17 GM Quetiapine Fumarate 25 mg BID PO 02/05/24 22:00 02/11/24 11:34 25 MG Enteral Nutritional Formula 1,000 ml 50ML/HR GT 02/07/24 16:00 02/11/24 06:03 1,000 ML Clonazepam 1 mg Q12HR PO 02/07/24 22:00 02/11/24 11:34 1 MG Midazolam HCl 2 mg Q2HPRN PRN IV 02/08/24 01:15 02/08/24 02:25 2 MG Midazolam HCl 50 ml @ 1 mls/hr Q24H IV 02/08/24 03:30 02/11/24 01:34 3 MLS/HR Propofol 100 ml @ 3.099 mls/ hr Q24H IV 02/08/24 09:45 02/10/24 17:42 6.198 MLS/HR Methylprednisolone Sodium Succinate 40 mg TID IV 02/08/24 14:00 02/11/24 15:05 40 MG Furosemide 40 mg DAILY IV 02/09/24 10:00 02/11/24 09:44 40 MG Amiodarone HCl 200 mg Q12HR PO 02/09/24 22:00 02/11/24 11:32 200 MG Sennosides 17.2 mg HS PO 02/09/24 22:00 02/10/24 22:11 17.2 MG Methadone HCl 20 mg DAILY PO 02/10/24 10:00 02/11/24 11:32 20 MG Albuterol 2.5 mg Q8HR NEB 02/09/24 14:00 02/11/24 11:21 2.5 MG Ipratropium [place] 0.5 mg Q8HR NEB 02/09/24 14:00 02/11/24 11:21 0.5 MG Albuterol 2.5 mg Q4HPRN PRN NEB 02/09/24 13:45 Ipratropium [place] 0.5 mg Q4HPRN PRN NEB 02/09/24 13:45 Fentanyl Citrate 250 ml @ 2.5 mls/hr Q24H IV 02/09/24 23:00 02/11/24 09:45 12.5 MLS/HR Hydralazine HCl 10 mg Q6HP PRN IV 02/11/24 11:00 02/11/24 18:52 10 MG objective Gen.: Patient lying in bed in no apparent distress. On supplemental oxygen. Head: Normocephalic, atraumatic. Eyes: EOMI/PERRLA. Ears: Normal hearing. Normal anatomy. Neck/trachea: Trachea midline, supple. Nose: Normal external anatomy. Mouth: Moist mucous membranes. Chest: Decreased air entry bilaterally. No wheezing or rhonchi. Cardiovascular: Positive S1, positive S2. Regular rate and rhythm. Abdomen: Positive bowel sounds in all 4 quadrants. Soft, non-tender, non- distended. : Deferred. Rectal: Deferred. Skin: Warm, dry. Intact. Extremities: 2+ radial pulses bilaterally. No lower extremity edema. Neuro: Awake, alert, oriented x3. No gross motor or sensory deficits. Cranial nerves II through XII intact. Gait not assessed. laboratory and microbiology Laboratory Tests 02/11/24 03:18 Test 02/11/24 03:18 Range/Units Serum Glucose 119 H 74-106 mg/dL Assessment/Plan Impression: Acute hypoxic respiratory failure On mechanical ventilator Asthma exacerbation Likely community-acquired pneumonia Likely NSTEMI type 2 Acute sepsis Recurrent hyperkalemia Overweight, BMI 28.8 Events: Patient tolerated CPAP and was extubated uneventfully in the AM. Currently on supplemental oxygen, 3 LPM NC Taper O2 as tolerated ABG reviewed, compensated. CXR demonstrates small to moderate bilateral pleural effusions, appear unchanged. No pneumothorax Off Levophed, hemodynamically stable. Off sedation Swallow evaluation. Continue antibiotics IV steroids - taper as tolerated Continue bronchodilators Labs and imaging reviewed. Rest of plan as noted below. Plan: s/p extubation Supplemental oxygen, on 3 LPM NC Taper O2 as tolerated Off sedation Off pressors, hemodynamically stable. Continue bronchodilators. IV steroids Continue antibiotics. F/u cultures. Start pressors if necessary for hemodynamic support Titrate to keep mean arterial pressure greater than 65 mmHg. Tube feeds for nutritional support. Monitor renal function Monitor electrolytes. Supplement as necessary. Monitor ins and outs. Maintain euvolemia. GI prophylaxis - Protonix. DVT prophylaxis - Lovenox. Prognosis: Poor given patient's multiple co-morbidities. Condition: Critical Rest of plan per hospitalist and other consultants. A total of 35 minutes of critical care time was spent reviewing the patient record, examining the patient, making a diagnostic and therapeutic plan, discussing this plan with the medical personnel, following up on diagnostic studies and following the patient for clinical stability excluding any and all procedures. At least 50% of this time was spent in direct, [id number] contact. Thank you Dr. Jim Ojeda MD, for allowing me to participate in this patient's care. Further recommendations will depend on the patient's clinical course. Please do not hesitate to contact me if you have any questions or concerns. This medical document was created using an electronic medical record system with [employer] dictation system. Although these documentations are being carefully reviewed, there may still be some phonetic and typographical changes. The errors are purely typographical, due to imperfection on the software program, and do not reflect any compromise in the patient's medical care. Dietary Evaluation Review Comments: 1) Increase Jevity 1.2 to 55ml/hr x 24hr goal rate as tolerated to meet estimated needs 2) Advance pt diet when medicall feasible 3) Continue current plan of care Expected Outcomes/Goals: 1) Pt to receive adequate nutrition support within 7 days of NPO status 2) Pt diet to advance 3) F/U in 2-3 days Plan discussed with: Other ([facility] [place]) Critical Care Time(min): 35 WARREN POWELL MD Feb 11, 2024 21:08
[2024-02-12] VITALS (60 sets, daily range): BP systolic 111–181; BP diastolic 60–105; PULSE 56–87; RESP 11–26; TEMP 97.6–98.5; O2SAT 88–99
[2024-02-12 03:36] LABS: Basophils # (auto) 0 10 ^3/uL (0-0.2); Basophils % (auto) 0.1 % (0.0-2.0); Eosinophils # (auto) 0 10 ^3/uL (0-0.8); Hematocrit 43.3 % (41.0-53.0); Hemoglobin 13.9 g/dL (13.5-17.5); Lymphocytes # (auto) 1.1 10 ^3/uL (0.4-5.4); Lymphocytes % (auto) 6.5 % (10.0-50.0); Mean Corpuscular Hemoglobin 28.3 pg (28.0-32.0); Mean Corpuscular Volume 88.5 fL (80.0-100.0); Monocytes # (auto) 0.8 10 ^3/uL (0-1.3); Monocytes % (auto) 4.6 % (0.0-12.0); Neutrophils # (auto) 14.6 10 ^3/uL (1.6-8.6); Neutrophils % (auto) 88.8 % (37.0-80.0); Platelet Count (auto) 200 10^3/uL (140-450); Red Cell Distribution Width 14.3 % (11.8-14.3); White Blood Cell 16.4 10^3/uL (4.4-10.8)
--- NOTE | 2024-02-12 08:24 | DVHPN2 ---
Assessment/Plan Assessment/Plan ICU progress note Subjective 53 yo M admitted for SOB, had hx of asthma, desaturating and intubated in ED, found to be hypertensive, after sedation became hypotensive. Seen pt [place] extubated, on supplemental oxygen, switched IV to po meds, starting coreg. stable to transfer to telemetry Objective Physical exam AOx3 PERRLA S1 S2 RRR clear breath sounds Abdomen soft nontender No LE edema Lab WBC 21 K 5.6 Cr 1.2 trop 114 BNP 260 trig 100s EKG NSR w ST T wave abnormalities tele aflutter Imaging CXR clear, ETT R IJ TLC in place Assessment and plan Acute hypoxic hypercapnic respiratory failure Asthma exacerbation Type 2 FL demand ischemia Hypertensive urgency distributive shock sedation related Substance use metabolic alkalosis respiratory acidosis aflutter likely ketamine related s/p extubation maintain SpO2 > 92% albuterol and ipatropium q4 [place] solumedrol increased to 60 q8, titrate down steroid empiric coverage with ceft and azithromycin completed 10 days resume HTN meds cardio consult appreciated maintain map >70, can use levo c/w methadone klonazepam seroquel, taper down hold ac for now pt back to sinus reinforce abstinance elopement precaution delirium precaution dc mckeon Lines Mckeon Maintain potassium of 4, phosphate of 3 and magnesium of 2 DietHH diet DVT prophylaxis lovenox Condition critical Prognosis poor Plan discussed with: Patient My Orders Orders - IVET QUINN MD Procedure Category Date Status Time Clonazepam Tablet PHA 02/12/24 Transmitted (Klonopin Tablet) 10:00 Methadone Hcl Tablet PHA 02/12/24 Transmitted (Methadone Hcl Tabl 10:00 Pantoprazole Tablet PHA 02/12/24 Transmitted (Protonix Tablet) 17:00 2 Gm Sodium Diet DIET 02/12/24 Transmitted Breakfast Carvedilol Tablet PHA 02/12/24 Transmitted (Coreg Tablet) 10:00 Date of Service: Feb 12, 2024 Billing Provider: IVET QUINN MD Common Visit Codes: [id number] INP/OBS CARE(HIGH) IVET QUINN MD Feb 12, 2024 08:24
[2024-02-12] MEDS: METHADONE HCL 10 MG TAB PO SCH (10:00)
[2024-02-12] MEDS: methylPREDNISolone SOD SUCC 40 MG/ML VL IV SCH (11:15)
[2024-02-12] MEDS: CARVEDILOL 3.125 MG TAB PO SCH (11:16)
[2024-02-12] MEDS: clonazePAM 0.5 MG TAB PO SCH (11:17)
[2024-02-12] MEDS: PROPOFOL 100 ML IV SCH (14:15)
[2024-02-12] MEDS: PANTOPRAZOLE 40 MG TAB PO SCH (18:03)
--- NOTE | 2024-02-12 23:25 | DVHPN2 ---
Progress Note - Dictate Date Seen: Feb 12, 2024 Medical Necessity Reason Pt with a Central, PICC or Fol: Yes The following are medically ne: Mckeon Catheter Reason for mckeon catheter: Strict I&O Subjective Patient seen and examined at bedside. Remains on supplemental oxygen Overnight events reviewed. vital signs Vital Sign Date Time Temp Pulse Resp B/P (MAP) Pulse Ox O2 Delivery O2 Flow Rate FiO2 02/12/24 23:16 61 161/99 02/12/24 22:30 17 96 02/12/24 22:00 Nasal Cannula* 4 36 02/12/24 16:00 98.0 98.0 Total Intake and Output 02/11/24 02/11/24 02/12/24 15:00 23:00 07:00 Intake Total 330.5 ml 155 ml 360 ml Output Total 1950 ml 1350 ml Balance 330.5 ml -1795 ml -990 ml medications Current Medications Medications Dose Ordered Sig/Compa Route Start Time Stop Time Status Last Admin Dose Admin Acetaminophen 1,000 mg [id number] PRN IV 01/31/24 20:00 01/31/24 20:01 Cancel Aspirin 81 mg DAILY PO 02/01/24 10:00 02/12/24 08:18 81 MG Atorvastatin Calcium 40 mg HS PO 02/01/24 22:00 02/12/24 22:22 40 MG Acetaminophen 650 mg Q6HP PRN [place] 02/02/24 00:00 02/02/24 00:44 650 MG Polyethylene Glycol 17 gm DAILY PO 02/04/24 10:00 02/12/24 08:20 17 GM Quetiapine Fumarate 25 mg BID PO 02/05/24 22:00 02/12/24 22:18 25 MG Furosemide 40 mg DAILY IV 02/09/24 10:00 02/12/24 08:17 40 MG Amiodarone HCl 200 mg Q12HR PO 02/09/24 22:00 02/12/24 22:18 200 MG Sennosides 17.2 mg HS PO 02/09/24 22:00 02/12/24 22:21 17.2 MG Albuterol 2.5 mg Q8HR NEB 02/09/24 14:00 02/12/24 22:54 2.5 MG Ipratropium [place] 0.5 mg Q8HR NEB 02/09/24 14:00 02/12/24 22:54 0.5 MG Albuterol 2.5 mg Q4HPRN PRN NEB 02/09/24 13:45 Ipratropium [place] 0.5 mg Q4HPRN PRN NEB 02/09/24 13:45 Clonazepam 0.5 mg Q12HR PO 02/12/24 10:00 02/12/24 22:16 0.5 MG Methadone HCl 10 mg DAILY PO 02/12/24 10:00 Pantoprazole Sodium 40 mg BID@0600,1700 PO 02/12/24 17:00 02/12/24 18:03 40 MG Carvedilol 3.125 mg Q12HR PO 02/12/24 10:00 02/12/24 22:16 3.125 MG Methylprednisolone Sodium Succinate 40 mg BID IV 02/12/24 10:00 02/12/24 22:15 40 MG objective Gen.: Patient lying in bed in no apparent distress. On supplemental oxygen. Head: Normocephalic, atraumatic. Eyes: EOMI/PERRLA. Ears: Normal hearing. Normal anatomy. Neck/trachea: Trachea midline, supple. Nose: Normal external anatomy. Mouth: Moist mucous membranes. Chest: Decreased air entry bilaterally. No wheezing or rhonchi. Cardiovascular: Positive S1, positive S2. Regular rate and rhythm. Abdomen: Positive bowel sounds in all 4 quadrants. Soft, non-tender, non- distended. : Deferred. Rectal: Deferred. Skin: Warm, dry. Intact. Extremities: 2+ radial pulses bilaterally. No lower extremity edema. Neuro: Awake, alert, oriented x3. No gross motor or sensory deficits. Cranial nerves II through XII intact. Gait not assessed. laboratory and microbiology Laboratory Tests 02/12/24 03:25 02/11/24 03:18 Test 02/11/24 03:18 Range/Units Serum Glucose 119 H 74-106 mg/dL Assessment/Plan Impression: Acute hypoxic respiratory failure Asthma exacerbation Likely community-acquired pneumonia Likely NSTEMI type 2 Acute sepsis Recurrent hyperkalemia Overweight, BMI 28.8 Events: Remains on supplemental oxygen, 4 LPM NC Taper O2 as tolerated Patient remains confused, pulled out central line. Awake, alert. Continue antibiotics IV steroids - taper as tolerated Continue bronchodilators Diurese to euvolemia Monitor renal function. Monitor electrolytes. Supplement as necessary. K of 4.0, mag 2.2. Patient is stable for downgrade to GAVIN. Labs and imaging reviewed. Rest of plan as noted below. Plan: s/p extubation on 02/11/24 Supplemental oxygen, Titrate to keep sats above 92% Off sedation Off pressors, hemodynamically stable. Continue bronchodilators. IV steroids Continue antibiotics. F/u cultures. Start pressors if necessary for hemodynamic support Titrate to keep mean arterial pressure greater than 65 mmHg. Tube feeds for nutritional support. Monitor renal function Monitor electrolytes. Supplement as necessary. Monitor ins and outs. Maintain euvolemia. GI prophylaxis - Protonix. DVT prophylaxis - Lovenox. Prognosis: Poor given patient's multiple co-morbidities. Condition: Critical Rest of plan per hospitalist and other consultants. A total of 35 minutes of critical care time was spent reviewing the patient record, examining the patient, making a diagnostic and therapeutic plan, discussing this plan with the medical personnel, following up on diagnostic studies and following the patient for clinical stability excluding any and all procedures. At least 50% of this time was spent in direct, [id number] contact. Thank you Dr. Jim Ojeda MD, for allowing me to participate in this patient's care. Further recommendations will depend on the patient's clinical course. Please do not hesitate to contact me if you have any questions or concerns. This medical document was created using an electronic medical record system with [employer] dictation system. Although these documentations are being carefully reviewed, there may still be some phonetic and typographical changes. The errors are purely typographical, due to imperfection on the software program, and do not reflect any compromise in the patient's medical care. Dietary Evaluation Review Comments: 1) Increase Jevity 1.2 to 55ml/hr x 24hr goal rate as tolerated to meet estimated needs 2) Advance pt diet when medicall feasible 3) Continue current plan of care Expected Outcomes/Goals: 1) Pt to receive adequate nutrition support within 7 days of NPO status 2) Pt diet to advance 3) F/U in 2-3 days Plan discussed with: Other (IVANA [place]) Critical Care Time(min): 35 WARREN POWELL MD Feb 12, 2024 23:25
--- NOTE | 2024-02-12 23:51 | DVHPN2 ---
Progress Note - Dictate Date Seen: Feb 12, 2024 Medical Necessity Reason Pt with a Central, PICC or Fol: Yes The following are medically ne: Mckeon Catheter Reason for mckeon catheter: Strict I&O Subjective Patient was seen and evaluated in follow up. Patient has been downgraded. She is on 4 LPM NC, reports improvement in SOB. WBC 16.4, NA 146, CO2 34, BUN 38. vital signs Vital Sign Date Time Temp Pulse Resp B/P (MAP) Pulse Ox O2 Delivery O2 Flow Rate FiO2 02/12/24 23:17 97.6 60 18 162/95 (117) 96 97.6 02/12/24 22:00 Nasal Cannula* 4 36 Total Intake and Output 02/11/24 02/11/24 02/12/24 15:00 23:00 07:00 Intake Total 330.5 ml 155 ml 360 ml Output Total 1950 ml 1350 ml Balance 330.5 ml -1795 ml -990 ml medications Current Medications Medications Dose Ordered Sig/Compa Route Start Time Stop Time Status Last Admin Dose Admin Acetaminophen 1,000 mg [id number] PRN IV 01/31/24 20:00 01/31/24 20:01 Cancel Aspirin 81 mg DAILY PO 02/01/24 10:00 02/12/24 08:18 81 MG Atorvastatin Calcium 40 mg HS PO 02/01/24 22:00 02/12/24 22:22 40 MG Acetaminophen 650 mg Q6HP PRN [place] 02/02/24 00:00 02/02/24 00:44 650 MG Polyethylene Glycol 17 gm DAILY PO 02/04/24 10:00 02/12/24 08:20 17 GM Quetiapine Fumarate 25 mg BID PO 02/05/24 22:00 02/12/24 22:18 25 MG Furosemide 40 mg DAILY IV 02/09/24 10:00 02/12/24 08:17 40 MG Amiodarone HCl 200 mg Q12HR PO 02/09/24 22:00 02/12/24 22:18 200 MG Sennosides 17.2 mg HS PO 02/09/24 22:00 02/12/24 22:21 17.2 MG Albuterol 2.5 mg Q8HR NEB 02/09/24 14:00 02/12/24 22:54 2.5 MG Ipratropium [place] 0.5 mg Q8HR NEB 02/09/24 14:00 02/12/24 22:54 0.5 MG Albuterol 2.5 mg Q4HPRN PRN NEB 02/09/24 13:45 Ipratropium [place] 0.5 mg Q4HPRN PRN NEB 02/09/24 13:45 Clonazepam 0.5 mg Q12HR PO 02/12/24 10:00 02/12/24 22:16 0.5 MG Methadone HCl 10 mg DAILY PO 02/12/24 10:00 Pantoprazole Sodium 40 mg BID@0600,1700 PO 02/12/24 17:00 02/12/24 18:03 40 MG Carvedilol 3.125 mg Q12HR PO 02/12/24 10:00 02/12/24 22:16 3.125 MG Methylprednisolone Sodium Succinate 40 mg BID IV 02/12/24 10:00 02/12/24 22:15 40 MG objective GENERAL: Awake, alert, oriented. Obese. LUNGS: Decreased breath sounds. CARDIOVASCULAR: Heart sounds are good. ABDOMEN: Soft. EXT: Cool to touch. SKIN: Hyperpigmentation to bilateral lower extremities laboratory and microbiology Laboratory Tests 02/12/24 03:25 02/11/24 03:18 Test 02/11/24 03:18 Range/Units Serum Glucose 119 H 74-106 mg/dL Problem List Atrial fibrillation/flutter, new onset, now normal sinus rhythm. Hypertensive urgency, now hypotensive. NSTEMI type II. Acute hypoxic respiratory failure. Polysubstance abuse. Obese. Assessment/Plan Continued all current supportive medical care. Amiodarone. Aspirin, Lipitor. IV antibiotics as ordered. DVT prophylactics. Diuretics with Lasix. Additional plan as per the hospital course. Dietary Evaluation Review Comments: 1) Increase Jevity 1.2 to 55ml/hr x 24hr goal rate as tolerated to meet estimated needs 2) Advance pt diet when medicall feasible 3) Continue current plan of care Expected Outcomes/Goals: 1) Pt to receive adequate nutrition support within 7 days of NPO status 2) Pt diet to advance 3) F/U in 2-3 days Plan discussed with: Patient ROSARIO GENTILE MD Feb 12, 2024 23:51
[2024-02-13] VITALS (18 sets, daily range): BP systolic 124–164; BP diastolic 68–99; PULSE 57–77; RESP 14–21; TEMP 97.5–98.6; O2SAT 92–99
[2024-02-13] MEDS: hydrALAZINE HCL 20 MG/ML VL IV PRN (00:52)
[2024-02-13 06:39] LABS: Basophils # (auto) 0 10 ^3/uL (0-0.2); Basophils % (auto) 0.1 % (0.0-2.0); Eosinophils # (auto) 0 10 ^3/uL (0-0.8); Hematocrit 44.2 % (41.0-53.0); Hemoglobin 14.3 g/dL (13.5-17.5); Lymphocytes # (auto) 1.3 10 ^3/uL (0.4-5.4); Lymphocytes % (auto) 6.3 % (10.0-50.0); Mean Corpuscular Hemoglobin 28.6 pg (28.0-32.0); Mean Corpuscular Hgb Conc. 32.4 g/dL (32.0-36.0); Mean Corpuscular Volume 88.2 fL (80.0-100.0); Monocytes # (auto) 1.2 10 ^3/uL (0-1.3); Monocytes % (auto) 5.7 % (0.0-12.0); Neutrophils # (auto) 18.1 10 ^3/uL (1.6-8.6); Neutrophils % (auto) 87.9 % (37.0-80.0); Platelet Count (auto) 230 10^3/uL (140-450); Red Blood Cells 5.02 10^6/uL (4.5-5.90); Red Cell Distribution Width 14.6 % (11.8-14.3); White Blood Cell 20.6 10^3/uL (4.4-10.8)
[2024-02-13 07:11] LABS: Albumin 3.5 g/dL (3.2-4.8); Alkaline Phosphatase 102 U/L (46-116); Anion Gap 5 (5-15); Aspartate Aminotransferase 18 U/L (13-40); BUN/Creatinine Ratio 53.7 (10.0-20.0); Bilirubin, Total 0.6 mg/dL (0.2-1.0); Calcium 9.6 mg/dL (8.7-10.4); Carbon Dioxide 30 mmol/L (20-31); Chloride 102 mmol/L (98-107); Potassium 4.3 mmol/L (3.5-5.1); Sodium 137 mmol/L (136-145)
[2024-02-13 07:13] LABS: Alanine Aminotransferase 77 U/L (7-40); Blood Urea Nitrogen 29 mg/dL (9-23); Glucose 115 mg/dL (74-106); Total Protein 5.5 g/dL (5.7-8.2)
[2024-02-13] MEDS: predniSONE 20 MG TAB PO SCH (11:08)
--- NOTE | 2024-02-13 12:08 | DVHPN2 ---
Assessment/Plan Assessment/Plan ICU progress note Subjective 53 yo M admitted for SOB, had hx of asthma, desaturating and intubated in ED, found to be hypertensive, after sedation became hypotensive. Seen pt duirng rounds on room air, not able to ambulate, pending PT Objective Physical exam AOx3 PERRLA S1 S2 RRR clear breath sounds Abdomen soft nontender No LE edema Lab WBC 21 K 5.6 Cr 1.2 trop 114 BNP 260 trig 100s EKG NSR w ST T wave abnormalities tele aflutter Imaging CXR clear, ETT R IJ TLC in place Assessment and plan Acute hypoxic hypercapnic respiratory failure Asthma exacerbation Type 2 [place] demand ischemia Hypertensive urgency distributive shock sedation related Substance use metabolic alkalosis respiratory acidosis aflutter likely ketamine related s/p extubation maintain SpO2 > 92% albuterol and ipatropium q4 flor solumedrol increased to 60 q8, titrate down steroid empiric coverage with ceft and azithromycin completed 10 days resume HTN meds cardio consult appreciated maintain map >70, can use levo c/w methadone klonazepam seroquel, taper down hold ac for now pt back to sinus reinforce abstinance elopement precaution delirium precaution pt consult Maintain potassium of 4, phosphate of 3 and magnesium of 2 DietHH diet DVT prophylaxis lovenox Condition critical Prognosis poor Plan discussed with: Patient My Orders Orders - IVET QUINN MD Procedure Category Date Status Time Prednisone Tablet PHA 02/13/24 In Process 10:00 Pt Request For Service PT 02/13/24 Logged 11:05 Date of Service: Feb 13, 2024 Billing Provider: IVET QUINN MD Common Visit Codes: [id number] INP/OBS CARE(HIGH) IVET QUINN MD Feb 13, 2024 12:08
--- NOTE | 2024-02-13 21:29 | DVHPN2 ---
Progress Note - Dictate Date Seen: Feb 13, 2024 Medical Necessity Reason Pt with a Central, PICC or Fol: Yes The following are medically ne: Mckeon Catheter Reason for mckeon catheter: Strict I&O Subjective Patient seen and examined at bedside. Remains on supplemental oxygen Overnight events reviewed. vital signs Vital Sign Date Time Temp Pulse Resp B/P (MAP) Pulse Ox O2 Delivery O2 Flow Rate FiO2 02/13/24 20:00 Nasal Cannula* 4 36 02/13/24 16:27 97.6 66 16 154/89 (110) 99 97.6 Total Intake and Output 02/12/24 02/12/24 02/13/24 15:00 23:00 07:00 Intake Total 960 ml 480 ml Output Total 2950 ml 375 ml Balance -1990 ml 105 ml medications Current Medications Medications Dose Ordered Sig/Compa Route Start Time Stop Time Status Last Admin Dose Admin Acetaminophen 1,000 mg [id number] PRN IV 01/31/24 20:00 01/31/24 20:01 Cancel Aspirin 81 mg DAILY PO 02/01/24 10:00 02/13/24 11:08 81 MG Atorvastatin Calcium 40 mg HS PO 02/01/24 22:00 02/12/24 22:22 40 MG Acetaminophen 650 mg Q6HP PRN [place] 02/02/24 00:00 02/02/24 00:44 650 MG Polyethylene Glycol 17 gm DAILY PO 02/04/24 10:00 02/12/24 08:20 17 GM Quetiapine Fumarate 25 mg BID PO 02/05/24 22:00 02/13/24 11:08 25 MG Furosemide 40 mg DAILY IV 02/09/24 10:00 02/13/24 11:09 40 MG Amiodarone HCl 200 mg Q12HR PO 02/09/24 22:00 02/13/24 11:08 200 MG Sennosides 17.2 mg HS PO 02/09/24 22:00 02/12/24 22:21 17.2 MG Albuterol 2.5 mg Q8HR NEB 02/09/24 14:00 02/13/24 14:06 2.5 MG Ipratropium [place] 0.5 mg Q8HR NEB 02/09/24 14:00 02/13/24 14:06 0.5 MG Albuterol 2.5 mg Q4HPRN PRN NEB 02/09/24 13:45 Ipratropium [place] 0.5 mg Q4HPRN PRN NEB 02/09/24 13:45 Pantoprazole Sodium 40 mg BID@0600,1700 PO 02/12/24 17:00 02/13/24 16:31 40 MG Carvedilol 3.125 mg Q12HR PO 02/12/24 10:00 02/13/24 11:09 3.125 MG Hydralazine HCl 10 mg Q6HP PRN IV 02/13/24 00:15 02/13/24 00:52 10 MG Prednisone 40 mg DAILY PO 02/13/24 10:00 02/13/24 11:08 40 MG objective Gen.: Patient lying in bed in no apparent distress. On supplemental oxygen. Head: Normocephalic, atraumatic. Eyes: EOMI/PERRLA. Ears: Normal hearing. Normal anatomy. Neck/trachea: Trachea midline, supple. Nose: Normal external anatomy. Mouth: Moist mucous membranes. Chest: Decreased air entry bilaterally. No wheezing or rhonchi. Cardiovascular: Positive S1, positive S2. Regular rate and rhythm. Abdomen: Positive bowel sounds in all 4 quadrants. Soft, non-tender, non- distended. : Deferred. Rectal: Deferred. Skin: Warm, dry. Intact. Extremities: 2+ radial pulses bilaterally. No lower extremity edema. Neuro: Awake, alert, oriented x3. No gross motor or sensory deficits. Cranial nerves II through XII intact. Gait not assessed. laboratory and microbiology Laboratory Tests 02/13/24 05:15 Test 02/13/24 05:15 Range/Units Serum Glucose 115 H 74-106 mg/dL Assessment/Plan Impression: Acute hypoxic respiratory failure Asthma exacerbation Likely community-acquired pneumonia Likely NSTEMI type 2 Acute sepsis Recurrent hyperkalemia Overweight, BMI 28.8 Events: Remains on supplemental oxygen, 4 LPM NC Taper O2 as tolerated Continue antibiotics Continue bronchodilators IS. Diurese to euvolemia Monitor renal function. Monitor electrolytes. Supplement as necessary. Head of bed elevation Aspiration precautions Labs and imaging reviewed. Rest of plan as noted below. Plan: s/p extubation on 02/11/24 Supplemental oxygen, Titrate to keep sats above 92% Off sedation Off pressors, hemodynamically stable. Continue bronchodilators. IV steroids - tapered Continue antibiotics. F/u cultures. Start pressors if necessary for hemodynamic support Titrate to keep mean arterial pressure greater than 65 mmHg. Tube feeds for nutritional support. Monitor renal function Monitor electrolytes. Supplement as necessary. Monitor ins and outs. Maintain euvolemia. GI prophylaxis - Protonix. DVT prophylaxis - Lovenox. Prognosis: Poor given patient's multiple co-morbidities. Rest of plan per hospitalist and other consultants. Thank you Dr. Jim Ojeda MD, for allowing me to participate in this patient's care. Further recommendations will depend on the patient's clinical course. Please do not hesitate to contact me if you have any questions or concerns. This medical document was created using an electronic medical record system with [employer] dictation system. Although these documentations are being carefully reviewed, there may still be some phonetic and typographical changes. The errors are purely typographical, due to imperfection on the software program, and do not reflect any compromise in the patient's medical care. Dietary Evaluation Review Comments: 1) Increase Jevity 1.2 to 55ml/hr x 24hr goal rate as tolerated to meet estimated needs 2) Advance pt diet when medicall feasible 3) Continue current plan of care Expected Outcomes/Goals: 1) Pt to receive adequate nutrition support within 7 days of NPO status 2) Pt diet to advance 3) F/U in 2-3 days Plan discussed with: Patient, Other (RN Edith) WARREN POWELL MD Feb 13, 2024 21:29
[2024-02-14] VITALS (14 sets, daily range): BP systolic 121–159; BP diastolic 50–98; PULSE 59–80; RESP 18–20; TEMP 97.5–98.4; O2SAT 93–100
--- NOTE | 2024-02-14 00:06 | DVHPN2 ---
Progress Note - Dictate Date Seen: Feb 13, 2024 Medical Necessity Reason Pt with a Central, PICC or Fol: Yes The following are medically ne: Mckeon Catheter Reason for mckeon catheter: Strict I&O Subjective Patient was seen and evaluated in follow up. No overnight events. Patient is on 4 LPM NC. WBC 20.6, BUN 29. Patient was hypertensive earlier and received IV Hydralazine. vital signs Vital Sign Date Time Temp Pulse Resp B/P (MAP) Pulse Ox O2 Delivery O2 Flow Rate FiO2 02/13/24 23:04 66 18 98 02/13/24 22:56 Nasal Cannula 4.0 02/13/24 22:56 36 02/13/24 21:45 133/72 02/13/24 21:00 97.5 97.5 medications Current Medications Medications Dose Ordered Sig/Compa Route Start Time Stop Time Status Last Admin Dose Admin Acetaminophen 1,000 mg [id number] PRN IV 01/31/24 20:00 01/31/24 20:01 Cancel Aspirin 81 mg DAILY PO 02/01/24 10:00 02/13/24 11:08 81 MG Atorvastatin Calcium 40 mg HS PO 02/01/24 22:00 02/13/24 21:43 40 MG Acetaminophen 650 mg Q6HP PRN [place] 02/02/24 00:00 02/02/24 00:44 650 MG Polyethylene Glycol 17 gm DAILY PO 02/04/24 10:00 02/12/24 08:20 17 GM Quetiapine Fumarate 25 mg BID PO 02/05/24 22:00 02/13/24 21:44 25 MG Furosemide 40 mg DAILY IV 02/09/24 10:00 02/13/24 11:09 40 MG Amiodarone HCl 200 mg Q12HR PO 02/09/24 22:00 02/13/24 21:43 200 MG Sennosides 17.2 mg HS PO 02/09/24 22:00 02/13/24 21:44 17.2 MG Albuterol 2.5 mg Q8HR NEB 02/09/24 14:00 02/13/24 22:56 2.5 MG Ipratropium [place] 0.5 mg Q8HR NEB 02/09/24 14:00 02/13/24 22:56 0.5 MG Albuterol 2.5 mg Q4HPRN PRN NEB 02/09/24 13:45 Ipratropium [place] 0.5 mg Q4HPRN PRN NEB 02/09/24 13:45 Pantoprazole Sodium 40 mg BID@0600,1700 PO 02/12/24 17:00 02/13/24 16:31 40 MG Carvedilol 3.125 mg Q12HR PO 02/12/24 10:00 02/13/24 21:45 3.125 MG Hydralazine HCl 10 mg Q6HP PRN IV 02/13/24 00:15 02/13/24 00:52 10 MG Prednisone 40 mg DAILY PO 02/13/24 10:00 02/13/24 11:08 40 MG objective GENERAL: Awake, alert, oriented. Obese. LUNGS: Decreased breath sounds. CARDIOVASCULAR: Heart sounds are good. ABDOMEN: Soft. EXT: Cool to touch. SKIN: Hyperpigmentation to bilateral lower extremities laboratory and microbiology Laboratory Tests 02/13/24 05:15 Test 02/13/24 05:15 Range/Units Serum Glucose 115 H 74-106 mg/dL Problem List Atrial fibrillation/flutter, new onset, now normal sinus rhythm. Hypertensive urgency, now hypotensive. NSTEMI type II. Acute hypoxic respiratory failure. Polysubstance abuse. Obese. Assessment/Plan Continued all current supportive medical care. Amiodarone. Aspirin, Lipitor. IV antibiotics as ordered. DVT prophylactics. Diuretics with Lasix. Additional plan as per the hospital course. Dietary Evaluation Review Comments: 1) Increase Jevity 1.2 to 55ml/hr x 24hr goal rate as tolerated to meet estimated needs 2) Advance pt diet when medicall feasible 3) Continue current plan of care Expected Outcomes/Goals: 1) Pt to receive adequate nutrition support within 7 days of NPO status 2) Pt diet to advance 3) F/U in 2-3 days Plan discussed with: Patient ROSARIO GENTILE MD Feb 14, 2024 00:06
[2024-02-14 05:58] LABS: Basophils # (auto) 0 10 ^3/uL (0-0.2); Basophils % (auto) 0.2 % (0.0-2.0); Eosinophils # (auto) 0 10 ^3/uL (0-0.8); Eosinophils % (auto) 0.1 % (0.0-7.0); Hematocrit 46.5 % (41.0-53.0); Hemoglobin 15.2 g/dL (13.5-17.5); Lymphocytes # (auto) 2.5 10 ^3/uL (0.4-5.4); Lymphocytes % (auto) 13.1 % (10.0-50.0); Mean Corpuscular Hemoglobin 28.8 pg (28.0-32.0); Mean Corpuscular Hgb Conc. 32.7 g/dL (32.0-36.0); Mean Corpuscular Volume 87.9 fL (80.0-100.0); Monocytes # (auto) 2.1 10 ^3/uL (0-1.3); Monocytes % (auto) 10.6 % (0.0-12.0); Neutrophils # (auto) 14.8 10 ^3/uL (1.6-8.6); Nucleated Red Blood Cells % 0.1 %; Platelet Count (auto) 230 10^3/uL (140-450); Red Blood Cells 5.29 10^6/uL (4.5-5.90); Red Cell Distribution Width 13.9 % (11.8-14.3); White Blood Cell 19.4 10^3/uL (4.4-10.8)
[2024-02-14 06:09] LABS: Anion Gap 6 (5-15); Carbon Dioxide 30 mmol/L (20-31); Chloride 101 mmol/L (98-107); Potassium 4.1 mmol/L (3.5-5.1); Sodium 137 mmol/L (136-145)
[2024-02-14 06:10] LABS: Calcium 9.6 mg/dL (8.7-10.4)
[2024-02-14 06:15] LABS: BUN/Creatinine Ratio 28.1 (10.0-20.0); Glucose 99 mg/dL (74-106)
[2024-02-14 07:01] LABS: Blood Urea Nitrogen 25 mg/dL (9-23)
[2024-02-14] MEDS ORDERED: hydrALAZINE HCL 20 MG/ML VL IV PRN (08:30)
--- NOTE | 2024-02-14 08:36 | DVHPN2 ---
Assessment/Plan Assessment/Plan Progress note Subjective 53 yo M admitted for SOB, had hx of asthma, desaturating and intubated in ED, found to be hypertensive, after sedation became hypotensive. high sedation requirements for vent synchorny, s/p ketamine with tachyarrhythmia, now discontinued, completed 10 days of ceft and azithro, now extubated, back in sinus rhythm Seen pt during rounds patient wants to go home as he was planning to drive to [place], however not able to get out of bed. increase coreg, PT rec rolator and home health, eval for home O2 Objective Physical exam AOx3 PERRLA S1 S2 RRR clear breath sounds Abdomen soft nontender No LE edema Lab status quo EKG NSR w ST T wave abnormalities tele aflutter Imaging CXR clear, ETT R IJ TLC in place Assessment and plan Acute hypoxic hypercapnic respiratory failure requiring intubation, now extubated likely pneumonia GN vs GP Asthma exacerbation Type 2 ID demand ischemia Hypertensive urgency distributive shock sedation related resolved Substance use metabolic alkalosis resolved respiratory acidosis resolved aflutter likely ketamine related resolved deconditioning s/p extubation maintain SpO2 > 92% albuterol and ipatropium q4 flor solumedrol increased to 60 q8, titrate down steroid s/p coverage with ceft and azithromycin completed 10 days resume HTN meds cardio consult appreciated maintain map >70, can use levo c/w methadone klonazepam seroquel, taper down now only seroquel hold ac for now pt back to sinus reinforce abstinance pt consult Maintain potassium of 4, phosphate of 3 and magnesium of 2 DietHH diet DVT prophylaxis lovenox Condition critical Prognosis poor Plan discussed with: Patient My Orders Orders - IVET QUINN MD Procedure Category Date Status Time Pt Request For Service PT 02/13/24 Logged 11:05 Date of Service: Feb 14, 2024 Billing Provider: IVET QUINN MD Common Visit Codes: [id number] INP/OBS CARE(HIGH) IVET QUINN MD Feb 14, 2024 08:36
[2024-02-14] MEDS: CARVEDILOL 3.125 MG TAB PO SCH (09:55)
--- NOTE | 2024-02-14 13:39 | DVHPN2 ---
Progress Note - Dictate Date Seen: Feb 14, 2024 Medical Necessity Reason Pt with a Central, PICC or Fol: Yes The following are medically ne: Mckeon Catheter Reason for mckeon catheter: Strict I&O Subjective Patient was seen and evaluated in follow up. No overnight events. Patient is on 4 LPM NC. Patient is expressing his desire to go home. WBC 19.4, BUN 25. vital signs Vital Sign Date Time Temp Pulse Resp B/P (MAP) Pulse Ox O2 Delivery O2 Flow Rate FiO2 02/14/24 09:55 64 141/75 02/14/24 09:11 97.6 20 93 97.6 02/14/24 08:00 Nasal Cannula* 2 28 Total Intake and Output 02/13/24 02/13/24 02/14/24 15:00 23:00 07:00 Intake Total 900 ml Output Total 750 ml Balance 150 ml medications Current Medications Medications Dose Ordered Sig/Compa Route Start Time Stop Time Status Last Admin Dose Admin Acetaminophen 1,000 mg [id number] PRN IV 01/31/24 20:00 01/31/24 20:01 Cancel Aspirin 81 mg DAILY PO 02/01/24 10:00 02/14/24 09:49 81 MG Atorvastatin Calcium 40 mg HS PO 02/01/24 22:00 02/13/24 21:43 40 MG Acetaminophen 650 mg Q6HP PRN [place] 02/02/24 00:00 02/02/24 00:44 650 MG Polyethylene Glycol 17 gm DAILY PO 02/04/24 10:00 02/12/24 08:20 17 GM Quetiapine Fumarate 25 mg BID PO 02/05/24 22:00 02/13/24 21:44 25 MG Furosemide 40 mg DAILY IV 02/09/24 10:00 02/14/24 09:50 40 MG Amiodarone HCl 200 mg Q12HR PO 02/09/24 22:00 02/14/24 09:49 200 MG Sennosides 17.2 mg HS PO 02/09/24 22:00 02/13/24 21:44 17.2 MG Albuterol 2.5 mg Q8HR NEB 02/09/24 14:00 02/14/24 06:24 2.5 MG Ipratropium [place] 0.5 mg Q8HR NEB 02/09/24 14:00 02/14/24 06:23 0.5 MG Albuterol 2.5 mg Q4HPRN PRN NEB 02/09/24 13:45 Ipratropium [place] 0.5 mg Q4HPRN PRN NEB 02/09/24 13:45 Pantoprazole Sodium 40 mg BID@0600,1700 PO 02/12/24 17:00 02/14/24 05:15 40 MG Prednisone 40 mg DAILY PO 02/13/24 10:00 02/14/24 09:49 40 MG Carvedilol 6.25 mg Q12HR PO 02/14/24 10:00 02/14/24 09:55 6.25 MG Hydralazine HCl 10 mg Q6HP PRN IV 02/14/24 08:30 objective GENERAL: Awake, alert, oriented. Obese. LUNGS: Decreased breath sounds. CARDIOVASCULAR: Heart sounds are good. ABDOMEN: Soft. EXT: Cool to touch. SKIN: Hyperpigmentation to bilateral lower extremities laboratory and microbiology Laboratory Tests 02/14/24 05:23 Test 02/14/24 05:23 Range/Units Serum Glucose 99 74-106 mg/dL Problem List Atrial fibrillation/flutter, new onset, now normal sinus rhythm. Hypertensive urgency, now hypotensive. NSTEMI type II. Acute hypoxic respiratory failure. Polysubstance abuse. Obese. Assessment/Plan Continued all current supportive medical care. Amiodarone. Aspirin, Lipitor. IV antibiotics as ordered. DVT prophylactics. Diuretics with Lasix. Additional plan as per the hospital course. Dietary Evaluation Review Comments: 1) Increase Jevity 1.2 to 55ml/hr x 24hr goal rate as tolerated to meet estimated needs 2) Advance pt diet when medicall feasible 3) Continue current plan of care Expected Outcomes/Goals: 1) Pt to receive adequate nutrition support within 7 days of NPO status 2) Pt diet to advance 3) F/U in 2-3 days Plan discussed with: Patient ROSARIO GENTILE MD Feb 14, 2024 13:14
--- NOTE | 2024-02-14 22:33 | DVHPN2 ---
Progress Note - Dictate Date Seen: Feb 14, 2024 Medical Necessity Reason Pt with a Central, PICC or Fol: Yes The following are medically ne: Mckeon Catheter Reason for mckeon catheter: Strict I&O Subjective Patient seen and examined at bedside. Breathing comfortably on room air. Overnight events reviewed. vital signs Vital Sign Date Time Temp Pulse Resp B/P (MAP) Pulse Ox O2 Delivery O2 Flow Rate FiO2 02/14/24 22:26 71 18 95 02/14/24 22:26 Room Air* 0 21 02/14/24 21:00 98.2 121/50 (73) 98.2 Total Intake and Output 02/13/24 02/13/24 02/14/24 15:00 23:00 07:00 Intake Total 900 ml Output Total 750 ml Balance 150 ml medications Current Medications Medications Dose Ordered Sig/Compa Route Start Time Stop Time Status Last Admin Dose Admin Acetaminophen 1,000 mg [id number] PRN IV 01/31/24 20:00 01/31/24 20:01 Cancel Aspirin 81 mg DAILY PO 02/01/24 10:00 02/14/24 09:49 81 MG Atorvastatin Calcium 40 mg HS PO 02/01/24 22:00 02/13/24 21:43 40 MG Acetaminophen 650 mg Q6HP PRN [place] 02/02/24 00:00 02/02/24 00:44 650 MG Polyethylene Glycol 17 gm DAILY PO 02/04/24 10:00 02/12/24 08:20 17 GM Quetiapine Fumarate 25 mg BID PO 02/05/24 22:00 02/13/24 21:44 25 MG Furosemide 40 mg DAILY IV 02/09/24 10:00 02/14/24 09:50 40 MG Amiodarone HCl 200 mg Q12HR PO 02/09/24 22:00 02/14/24 09:49 200 MG Sennosides 17.2 mg HS PO 02/09/24 22:00 02/13/24 21:44 17.2 MG Albuterol 2.5 mg Q8HR NEB 02/09/24 14:00 02/14/24 22:26 2.5 MG Ipratropium [place] 0.5 mg Q8HR NEB 02/09/24 14:00 02/14/24 22:26 0.5 MG Albuterol 2.5 mg Q4HPRN PRN NEB 02/09/24 13:45 Ipratropium [place] 0.5 mg Q4HPRN PRN NEB 02/09/24 13:45 Pantoprazole Sodium 40 mg BID@0600,1700 PO 02/12/24 17:00 02/14/24 17:26 40 MG Prednisone 40 mg DAILY PO 02/13/24 10:00 02/14/24 09:49 40 MG Carvedilol 6.25 mg Q12HR PO 02/14/24 10:00 02/14/24 09:55 6.25 MG Hydralazine HCl 10 mg Q6HP PRN IV 02/14/24 08:30 objective Gen.: Patient lying in bed in no apparent distress. On room air. Head: Normocephalic, atraumatic. Eyes: EOMI/PERRLA. Ears: Normal hearing. Normal anatomy. Neck/trachea: Trachea midline, supple. Nose: Normal external anatomy. Mouth: Moist mucous membranes. Chest: Decreased air entry bilaterally. No wheezing or rhonchi. Cardiovascular: Positive S1, positive S2. Regular rate and rhythm. Abdomen: Positive bowel sounds in all 4 quadrants. Soft, non-tender, non- distended. : Deferred. Rectal: Deferred. Skin: Warm, dry. Intact. Extremities: 2+ radial pulses bilaterally. No lower extremity edema. Neuro: Awake, alert, oriented x3. No gross motor or sensory deficits. Cranial nerves II through XII intact. Gait not assessed. laboratory and microbiology Laboratory Tests 02/14/24 05:23 Test 02/14/24 05:23 Range/Units Serum Glucose 99 74-106 mg/dL Assessment/Plan Impression: Acute hypoxic respiratory failure Asthma exacerbation Likely community-acquired pneumonia Likely NSTEMI type 2 Acute sepsis Recurrent hyperkalemia Overweight, BMI 28.8 Events: Breathing comfortably on room air. No respiratory distress Continue steroids - prednisone Continue bronchodilators IS. Diurese to euvolemia w/ Lasix QD Monitor renal function. Monitor electrolytes. Supplement as necessary. Head of bed elevation Aspiration precautions Labs and imaging reviewed. Rest of plan as noted below. Plan: s/p extubation on 02/11/24 Supplemental oxygen PRN Titrate to keep sats above 92% Off sedation Off pressors, hemodynamically stable. Continue bronchodilators. Steroids - Prednisone PO Start pressors if necessary for hemodynamic support Titrate to keep mean arterial pressure greater than 65 mmHg. Tube feeds for nutritional support. Monitor renal function Monitor electrolytes. Supplement as necessary. Monitor ins and outs. Maintain euvolemia. GI prophylaxis - Protonix. DVT prophylaxis - Lovenox. Prognosis: Poor given patient's multiple co-morbidities. Rest of plan per hospitalist and other consultants. Thank you Dr. Jim Ojeda MD, for allowing me to participate in this patient's care. Further recommendations will depend on the patient's clinical course. Please do not hesitate to contact me if you have any questions or concerns. This medical document was created using an electronic medical record system with [employer] dictation system. Although these documentations are being carefully reviewed, there may still be some phonetic and typographical changes. The errors are purely typographical, due to imperfection on the software program, and do not reflect any compromise in the patient's medical care. Dietary Evaluation Review Comments: 1) Increase Jevity 1.2 to 55ml/hr x 24hr goal rate as tolerated to meet estimated needs 2) Advance pt diet when medicall feasible 3) Continue current plan of care Expected Outcomes/Goals: 1) Pt to receive adequate nutrition support within 7 days of NPO status 2) Pt diet to advance 3) F/U in 2-3 days Plan discussed with: Patient, Other (IVANA Johnson) WARREN POWELL MD Feb 14, 2024 22:33
[2024-02-15] VITALS (8 sets, daily range): BP systolic 143–154; BP diastolic 83–103; PULSE 55–80; RESP 8–20; TEMP 97.5–97.9; O2SAT 93–100
[2024-02-15 11:32] LABS: Base Excess 1.1 mmol/L (-2.0-3.0)
[2024-02-15] MEDS ORDERED: ALBUAER3 IN (12:56)
[2024-02-15] MEDS ORDERED: ATOR20TA50 PO (12:56)
[2024-02-15] MEDS ORDERED: ASPI-325 PO (12:56)
[2024-02-15] MEDS ORDERED: CARV-214 PO (12:56)
[2024-02-15] MEDS ORDERED: UMEC1INH IN (12:56)
[2024-02-15] MEDS ORDERED: AMIO200T13 PO (12:56)
--- NOTE | 2024-02-15 13:01 | DVHDS2 ---
Discharge Summary Date of Admission Jan 31, 2024 at 20:52 Date of Discharge: Feb 15, 2024 Labs/Diagnostic Data: Laboratory Results Test 02/15/24 11:27 02/14/24 05:23 02/13/24 05:15 02/11/24 10:51 Blood Gas Specimen Type Arterial Blood Gas Sample Site Left radial Blood Gas Patient Temperature 37.0 Arterial Blood Date Drawn [id number] Arterial Blood pH 7.514 (7.350-7.450) Arterial Blood Partial Pressure CO2 28.8 mmHg (35.0-48.0) Arterial Blood Partial Pressure O2 68.4 mmHg (83.0-108.0) Arterial Blood HCO3 22.7 mmol/L (21.0-28.0) Arterial Blood Oxygen Saturation 94.1 % (94.0-98.0) Arterial Blood Base Excess 1.1 mmol/L (-2.0-3.0) Arterial Blood Oxyhemoglobin 92.7 % (94.0-98.0) Arterial Blood Carboxyhemoglobin 1.1 % (0.5-1.5) Arterial Blood Methemoglobin 0.4 % (0.0-1.5) Davide Test Yes Blood Gas Total Hemoglobin 16.70 g/dL (13.5-17.5) Blood Gas Modality Room air FiO2 % 21.0 White Blood Count 19.4 10^3/uL (4.4-10.8) Red Blood Count 5.29 10^6/uL (4.5-5.90) Hemoglobin 15.2 g/dL (13.5-17.5) Hematocrit 46.5 % (41.0-53.0) Mean Corpuscular Volume 87.9 fL (80.0-100.0) Mean Corpuscular Hemoglobin 28.8 pg (28.0-32.0) Mean Corpuscular Hemoglobin Concent 32.7 g/dL (32.0-36.0) Red Cell Distribution Width 13.9 % (11.8-14.3) Platelet Count 230 10^3/uL (140-450) Mean Platelet Volume 9.9 fL (6.9-10.8) Neutrophils (%) (Auto) 76.0 % (37.0-80.0) Lymphocytes (%) (Auto) 13.1 % (10.0-50.0) Monocytes (%) (Auto) 10.6 % (0.0-12.0) Eosinophils (%) (Auto) 0.1 % (0.0-7.0) Basophils (%) (Auto) 0.2 % (0.0-2.0) Neutrophils # (Auto) 14.8 10 ^3/uL (1.6-8.6) Lymphocytes # (Auto) 2.5 10 ^3/uL (0.4-5.4) Monocytes # (Auto) 2.1 10 ^3/uL (0-1.3) Eosinophils # (Auto) 0 10 ^3/uL (0-0.8) Basophils # (Auto) 0 10 ^3/uL (0-0.2) Nucleated Red Blood Cells 0.1 % Sodium Level 137 mmol/L (136-145) Potassium Level 4.1 mmol/L (3.5-5.1) Chloride Level 101 mmol/L (98-107) Carbon Dioxide Level 30 mmol/L (20-31) Anion Gap 6 (5-15) Blood Urea Nitrogen 25 mg/dL (9-23) Creatinine 0.89 mg/dL (0.700-1.30) Glomerular Filtration Rate Calc 103 mL/min (>90) BUN/Creatinine Ratio 28.1 (10.0-20.0) Serum Glucose 99 mg/dL (74-106) Calcium Level 9.6 mg/dL (8.7-10.4) Total Bilirubin 0.6 mg/dL (0.2-1.0) Aspartate Amino Transferase (AST) 18 U/L (13-40) Alanine Aminotransferase (ALT) 77 U/L (7-40) Alkaline Phosphatase 102 U/L (46-116) Total Protein 5.5 g/dL (5.7-8.2) Albumin 3.5 g/dL (3.2-4.8) Blood Gas Spontaneous Rate 13 Blood Gas Inspiratory Pressure 13.0 Blood Gas PEEP or CPAP 5.0 Bl Gas Inspiratory/Expiratory Ratio 1:6.2 Specimen Drawn By dayana rt Test 02/11/24 07:18 02/11/24 03:18 02/09/24 02:45 02/07/24 02:55 Blood Gas Set Respiration Rate 20.0 Blood Gas Tidal Volume 500.0 Phosphorus Level 3.0 mg/dL (2.4-5.1) Magnesium Level 2.2 mg/dL (1.6-2.6) Hemoglobin A1c 6.2 % A1C (<5.7) Triglycerides Level 191 mg/dL (< 150) Test 02/05/24 09:39 02/02/24 00:10 02/01/24 18:09 02/01/24 08:52 Blood Gas Critical Value Read Back yes Blood Gas Notified Whom ke quinn md Blood Gas Notified Time [id number] Blood Gas Notified By paul white rrt Urine Color Yellow (Yellow) Urine Clarity Turbid (Clear) Urine pH 5.0 (5.0-9.0) Urine Specific [place] 1.013 (1.001-1.035) Urine Protein Negative (Negative) Urine Ketones Negative (Negative) Urine Blood Negative /uL (Negative) Urine Nitrite Negative (Negative) Urine Bilirubin Negative (Negative) Urine Urobilinogen Normal mg/dL (Negative) Urine Leukocyte Esterase Negative /uL (Negative) Urine RBC None seen /hpf (0 - 3) Urine WBC None seen /hpf (0 - 3) Urine Squamous Epithelial Cells None seen /hpf (<5) Urine Bacteria None seen /hpf (None Seen) Urine Glucose Normal mg/dL (Normal) Urine Opiates Screen Neg (NEGATIVE) Urine Fentanyl Screen Pos (NEGATIVE) Urine Barbiturates Screen Neg (NEGATIVE) Urine Phencyclidine Screen Pos (NEGATIVE) Urine Amphetamines Screen Pos (NEGATIVE) Urine Benzodiazepines Screen Pos (NEGATIVE) Urine Cocaine Screen Neg (NEGATIVE) Urine Cannabinoids Screen Neg (NEGATIVE) POC Glucose 91 mg/dl (70-106) Miscellaneous Referred Test (Rm Tmp Sent to [facility] Test 02/01/24 06:43 02/01/24 00:30 01/31/24 21:09 01/31/24 19:36 Influenza Type A Antigen Negative (Negative) Influenza Type B Antigen Negative (Negative) SARS-CoV-2 Antigen (Rapid) Negative (NEGATIVE) Troponin I High Sensitivity 106 ng/L (</=54) Lactic Acid Level 1.7 mmol/L (0.4-2.0) D-Dimer, Quantitative 1.35 mg/L FEU (0.0-0.49) B-Type Natriuretic Peptide 260.79 pg/mL (0-100) Thyroid Stimulating Hormone (TSH) 2.62 uIU/mL (0.55-4.78) Plasma/Serum Blood Alcohol < 3.0 mg/dL (<10) Other Laboratory Tests 02/14/24 05:23 Brief Hx & Hospital Course: 53 YO admitted for hypoxic respiratory failure requiring intubation, patient with difficulty on sedation, requiring high dose sedation, with distributive shock was on pressors, addition of ketamine which reduces the sedation and pressor requirements. Patient was slowly weaned off, started on oral medication, able to be extubated, and was tapered off methadone and klonazepam. now on room air, deconditioned, worked with PT and discharged on home PT. stabel to [place] home Condition at Discharge: Good Final Diagnosis/Problems List COPD exacerbation Discharge Disposition: Home Discharge Instruct/Medications Diet: Consistent carbohydrate, Cardiac 2g Na,low cholest Activity: No Restrictions, As Tolerated Follow Up/Referral: pulmonary cardiology PCP dc clinic 1 week Medications: aspirin lipitor amiodarone coreg 35 Discharge Statement: "Patient was advised to return to the ER or call 911 if any headaches, dizziness, shortness of breath, chest pain, abdominal pain, bleeding, fevers, or worsening of medical condition. Patient was counseled about treatment plan, medications, possible side effects, patientverbalized understanding. All questions were answered to the best of my ability. This discharge took greater then 30 minutes in planning, reviewing documentation, counseling the patient, and discussing with other team members." ASSESSMENT ASSESSMENT Assessment Acute hypoxic hypercapnic respiratory failure requiring intubation, now extubated likely pneumonia GN vs GP Asthma exacerbation Type 2 MS demand ischemia Hypertensive urgency distributive shock sedation related resolved Substance use metabolic alkalosis resolved respiratory acidosis resolved aflutter likely ketamine related resolved deconditioning Date of Service: Feb 15, 2024 Billing Provider: IVET QUINN MD Common Visit Codes: 62298-PPV/OBS DISCH DAY >30min IVET QUINN MD Feb 15, 2024 13:00
--- NOTE | 2024-02-15 13:26 | DVHPN2 ---
Progress Note - Dictate Date Seen: Feb 15, 2024 Medical Necessity Reason Pt with a Central, PICC or Fol: Yes The following are medically ne: Mckeon Catheter Reason for mckeon catheter: Strict I&O Subjective Patient was seen and evaluated in follow up. Patient denies any new complaints. Patient stable on room air. Per CM, patient was accepted to [facility] services. vital signs Vital Sign Date Time Temp Pulse Resp B/P (MAP) Pulse Ox O2 Delivery O2 Flow Rate FiO2 02/15/24 09:55 78 143/91 02/15/24 09:00 97.9 16 97 97.9 02/15/24 08:00 Room Air* 0 21 Total Intake and Output 02/14/24 02/14/24 02/15/24 15:00 23:00 07:00 Intake Total 700 ml 400 ml Output Total 600 ml Balance 700 ml -200 ml medications Current Medications Medications Dose Ordered Sig/Compa Route Start Time Stop Time Status Last Admin Dose Admin Acetaminophen 1,000 mg [id number] PRN IV 01/31/24 20:00 01/31/24 20:01 Cancel Aspirin 81 mg DAILY PO 02/01/24 10:00 02/15/24 09:54 81 MG Atorvastatin Calcium 40 mg HS PO 02/01/24 22:00 02/13/24 21:43 40 MG Acetaminophen 650 mg Q6HP PRN [place] 02/02/24 00:00 02/02/24 00:44 650 MG Polyethylene Glycol 17 gm DAILY PO 02/04/24 10:00 02/12/24 08:20 17 GM Quetiapine Fumarate 25 mg BID PO 02/05/24 22:00 02/13/24 21:44 25 MG Furosemide 40 mg DAILY IV 02/09/24 10:00 02/15/24 09:52 40 MG Amiodarone HCl 200 mg Q12HR PO 02/09/24 22:00 02/15/24 09:54 200 MG Sennosides 17.2 mg HS PO 02/09/24 22:00 02/13/24 21:44 17.2 MG Albuterol 2.5 mg Q8HR NEB 02/09/24 14:00 02/15/24 07:52 2.5 MG Ipratropium [place] 0.5 mg Q8HR NEB 02/09/24 14:00 02/15/24 07:52 0.5 MG Albuterol 2.5 mg Q4HPRN PRN NEB 02/09/24 13:45 Ipratropium [place] 0.5 mg Q4HPRN PRN NEB 02/09/24 13:45 Pantoprazole Sodium 40 mg BID@0600,1700 PO 02/12/24 17:00 02/15/24 05:48 40 MG Prednisone 40 mg DAILY PO 02/13/24 10:00 02/15/24 09:54 40 MG Carvedilol 6.25 mg Q12HR PO 02/14/24 10:00 02/15/24 09:55 6.25 MG Hydralazine HCl 10 mg Q6HP PRN IV 02/14/24 08:30 objective GENERAL: Awake, alert, oriented. Obese. LUNGS: Decreased breath sounds. CARDIOVASCULAR: Heart sounds are good. ABDOMEN: Soft. EXT: Cool to touch. SKIN: Hyperpigmentation to bilateral lower extremities laboratory and microbiology Laboratory Tests 02/14/24 05:23 Test 02/14/24 05:23 Range/Units Serum Glucose 99 74-106 mg/dL Problem List Atrial fibrillation/flutter, new onset, now normal sinus rhythm. Hypertensive urgency, now hypotensive. NSTEMI type II. Acute hypoxic respiratory failure. Polysubstance abuse. Obese. Assessment/Plan Continued all current supportive medical care. Amiodarone. Aspirin, Lipitor. IV antibiotics as ordered. DVT prophylactics. Diuretics with Lasix. Additional plan as per the hospital course. Dietary Evaluation Review Comments: 1) Increase Jevity 1.2 to 55ml/hr x 24hr goal rate as tolerated to meet estimated needs 2) Advance pt diet when medicall feasible 3) Continue current plan of care Expected Outcomes/Goals: 1) Pt to receive adequate nutrition support within 7 days of NPO status 2) Pt diet to advance 3) F/U in 2-3 days Plan discussed with: Patient ROSARIO GENTILE MD Feb 15, 2024 11:58
--- NOTE | 2024-02-15 21:20 | DVHPN2 ---
Progress Note - Dictate Date Seen: Feb 15, 2024 Medical Necessity Reason Pt with a Central, PICC or Fol: Yes The following are medically ne: Mckeon Catheter Reason for mckeon catheter: Strict I&O Subjective Patient seen and examined at bedside. Breathing comfortably on room air. Overnight events reviewed. vital signs Vital Sign Date Time Temp Pulse Resp B/P (MAP) Pulse Ox O2 Delivery O2 Flow Rate FiO2 02/15/24 13:31 97.9 72 20 93 02/15/24 12:00 144/83 (103) 02/15/24 08:00 Room Air* 0 21 Total Intake and Output 02/14/24 02/14/24 02/15/24 15:00 23:00 07:00 Intake Total 700 ml 400 ml Output Total 600 ml Balance 700 ml -200 ml medications Current Medications Medications Dose Ordered Sig/Compa Route Start Time Stop Time Status Last Admin Dose Admin Acetaminophen 1,000 mg [id number] PRN IV 01/31/24 20:00 01/31/24 20:01 Cancel objective Gen.: Patient lying in bed in no apparent distress. On room air. Head: Normocephalic, atraumatic. Eyes: EOMI/PERRLA. Ears: Normal hearing. Normal anatomy. Neck/trachea: Trachea midline, supple. Nose: Normal external anatomy. Mouth: Moist mucous membranes. Chest: Decreased air entry bilaterally. No wheezing or rhonchi. Cardiovascular: Positive S1, positive S2. Regular rate and rhythm. Abdomen: Positive bowel sounds in all 4 quadrants. Soft, non-tender, non- distended. : Deferred. Rectal: Deferred. Skin: Warm, dry. Intact. Extremities: 2+ radial pulses bilaterally. No lower extremity edema. Neuro: Awake, alert, oriented x3. No gross motor or sensory deficits. Cranial nerves II through XII intact. Gait not assessed. laboratory and microbiology Laboratory Tests 02/14/24 05:23 Test 02/14/24 05:23 Range/Units Serum Glucose 99 74-106 mg/dL Assessment/Plan Impression: Acute hypoxic respiratory failure Asthma exacerbation Likely community-acquired pneumonia Likely NSTEMI type 2 Acute sepsis Recurrent hyperkalemia Overweight, BMI 28.8 Events: Breathing comfortably on room air. No respiratory distress Continue steroids - prednisone Continue bronchodilators IS. Diurese to euvolemia w/ Lasix QD Monitor renal function. Monitor electrolytes. Supplement as necessary. Head of bed elevation Aspiration precautions Patient is stable for discharge from the pulmonary standpoint. Recommended to get PFTs as outpatient. Labs and imaging reviewed. Rest of plan as noted below. Plan: s/p extubation on 02/11/24 Supplemental oxygen PRN Titrate to keep sats above 92% Off sedation Off pressors, hemodynamically stable. Continue bronchodilators. Steroids - Prednisone PO Start pressors if necessary for hemodynamic support Titrate to keep mean arterial pressure greater than 65 mmHg. Tube feeds for nutritional support. Monitor renal function Monitor electrolytes. Supplement as necessary. Monitor ins and outs. Maintain euvolemia. GI prophylaxis - Protonix. DVT prophylaxis - Lovenox. Prognosis: Poor given patient's multiple co-morbidities. Rest of plan per hospitalist and other consultants. Thank you Dr. Jim Ojeda MD, for allowing me to participate in this patient's care. Further recommendations will depend on the patient's clinical course. Please do not hesitate to contact me if you have any questions or concerns. This medical document was created using an electronic medical record system with [employer] dictation system. Although these documentations are being carefully reviewed, there may still be some phonetic and typographical changes. The errors are purely typographical, due to imperfection on the software program, and do not reflect any compromise in the patient's medical care. Dietary Evaluation Review Comments: 1) Increase Jevity 1.2 to 55ml/hr x 24hr goal rate as tolerated to meet estimated needs 2) Advance pt diet when medicall feasible 3) Continue current plan of care Expected Outcomes/Goals: 1) Pt to receive adequate nutrition support within 7 days of NPO status 2) Pt diet to advance 3) F/U in 2-3 days Plan discussed with: Patient, Other (IVANA Nunez) WARREN POWELL MD Feb 15, 2024 21:20
--- NOTE | 2024-02-21 12:32 | ECG ---
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
--- NOTE | 2024-02-21 12:32 | ECG ---
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
--- NOTE | 2024-02-21 12:34 | ECG ---
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
--- NOTE | 2024-02-21 13:05 | ECG ---
[facility] Test Date: 2024-02-08 Test Time: 16:31:31 Pat Name: MIRI PHELPS Department: Room: 0277T A Gender: M Systems Eng: : 1970 Requested By: MULUGETA NGUYEN Order Number: [id number] Reading MD: Hui Freeman Measurements Intervals [place] Rate: 150 P: 0 MD: 0 QRS: 54 QRSD: 92 T: 90 QT: 282 QTc: 445 Interpretive Statements Atrial flutter with 2:1 AV block Repolarization abnormality prob rate related Electronically Signed On 02-21-2024 18:21:32 PST by Hui Freeman Please click the below link to view image of tracing.
== END 2024-02-15 14:00 | disposition home health service (06) | DRG 720 ==
LOC: ER 18:33 → EDBD 18:33 → EDUNIT# 20:52 → OVERFLOW 20:52 → ICU WEST 02-02 04:35 → TELE-WESTW 02-12 22:33 → ICU WEST 02-12 22:35 → TELE-WESTW 02-12 23:00
PROVIDERS: ATTEND Student in an Organized Health Care Education/Training Program
PROC: 5A1955Z Respiratory Ventilation, Greater than 96 Consecutive Hours (ICD-10-PCS; principal; 2024-01-31)
PROC: 0BH17EZ Insertion of Endotracheal Airway into Trachea, Via Natural or Artificial Opening (ICD-10-PCS; 2024-01-31)
PROC: 02HV33Z Insertion of Infusion Device into Superior Vena Cava, Percutaneous Approach (ICD-10-PCS; 2024-01-31)
PROC: B548ZZA Ultrasonography of Superior Vena Cava, Guidance (ICD-10-PCS; 2024-01-31)
PROC: 5A09357 Assistance with Respiratory Ventilation, Less than 24 Consecutive Hours, Continuous Positive Airway Pressure (ICD-10-PCS; 2024-02-11)
DX: A41.9 Sepsis, unspecified organism (principal); J96.01 Acute respiratory failure with hypoxia; R57.8 Other shock; J15.9 Unspecified bacterial pneumonia; I21.A1 Myocardial infarction type 2; J44.1 Chronic obstructive pulmonary disease with (acute) exacerbation; J15.69 Pneumonia due to other Gram-negative bacteria; I47.10 Supraventricular tachycardia, unspecified; I48.92 Unspecified atrial flutter; J45.901 Unspecified asthma with (acute) exacerbation; I48.91 Unspecified atrial fibrillation; J96.02 Acute respiratory failure with hypercapnia; E66.9 Obesity, unspecified; Z20.822 Contact with and (suspected) exposure to COVID-19; I10 Essential (primary) hypertension; I16.0 Hypertensive urgency; E87.5 Hyperkalemia; E11.9 Type 2 diabetes mellitus without complications; I25.2 Old myocardial infarction; Z68.28 Body mass index [BMI] 28.0-28.9, adult; Z79.82 Long term (current) use of aspirin; Z79.899 Other long term (current) drug therapy
CPT/HCPCS: 31500; 36415; 36556; 36600; 71045; 80048; 80053; 80307; 80320; 81001; 82805; 82962; 83036; 83605; 83735; 83880; 84100; 84132; 84443; 84478; 84484; 85025; 85379; 87040; 87070; 87081; 87086; 87205; 87426; 87804; 93005; 93306; 94002; 94003; 94640; 97110; 97116; 97163; 97530; 99291; G0378; J0131; J0153; J0330; J1815; J2250; J2470; J2704; J7060

== ENCOUNTER 2024-04-10 05:02 | Inpatient (IN) | payer MEDICAID, OTHER ==
[~2024-04-10 05:02] MED LIST changes: +ALBUAER3 IN; +AMIO200T13 PO; +ASPI-325 PO; -ASPI-543 PO; +CARV-214 PO; -CEPH500C PO; -LIDO5DIS21 TOP; -LISI20TA56 PO; +UMEC1INH IN
[2024-04-10] MEDS: methylPREDNISolone SOD SUCC 125 MG/2 ML VL IV ONE (05:16)
[2024-04-10] MEDS: MAGNESIUM SULFATE 1GM/100ML 100 ML IV SCH (05:16)
--- NOTE | 2024-04-10 05:21 | ECG ---
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
[2024-04-10] MEDS: IPRATROPIUM BROM 0.5 MG/2.5ML INH SOL NEB ONE (05:24)
[2024-04-10] MEDS: ALBUTEROL SULF 2.5 MG/0.5ML(0.5%) NEB SOLN NEB ONE (05:24)
[2024-04-10 05:34] LABS: Basophils # (auto) 0.1 10 ^3/uL (0-0.2); Basophils % (auto) 1.4 % (0.0-2.0); Eosinophils # (auto) 0.6 10 ^3/uL (0-0.8); Eosinophils % (auto) 5.6 % (0.0-7.0); Hematocrit 49.7 % (41.0-53.0); Hemoglobin 15.7 g/dL (13.5-17.5); Lymphocytes # (auto) 2.5 10 ^3/uL (0.4-5.4); Lymphocytes % (auto) 23.4 % (10.0-50.0); Mean Corpuscular Hemoglobin 27.6 pg (28.0-32.0); Mean Corpuscular Hgb Conc. 31.6 g/dL (32.0-36.0); Mean Corpuscular Volume 87.4 fL (80.0-100.0); Monocytes # (auto) 0.9 10 ^3/uL (0-1.3); Neutrophils # (auto) 6.6 10 ^3/uL (1.6-8.6); Neutrophils % (auto) 61.6 % (37.0-80.0); Platelet Count (auto) 217 10^3/uL (140-450); Red Blood Cells 5.68 10^6/uL (4.5-5.90); Red Cell Distribution Width 17.5 % (11.8-14.3); White Blood Cell 10.7 10^3/uL (4.4-10.8)
--- NOTE | 2024-04-10 05:38 | ED.PDOC ---
History of Present Illness HPI Comments 54-year-old male with history of COPD/asthma, hypertension, prior respiratory failure requiring intubation, non STEMI type 2, prior pneumonia and polysubstance abuse brought in by EMS from home complaining of shortness of breath. Patient states he was suddenly awakened from sleep with difficulty breathing, used his inhaler, but did not have any relief. EMS reports patient had SpO2 of 78% on room air and was hypertensive. En route, patient was given a breathing treatment and placed on 10 lpm via CPAP, with SpO2 improving to 99%. Patient denies having any chest pain, cough, congestion, fever, or chills. Chief Complaint: Shortness of Breath Time Seen by MD: 05:00 Primary Care Provider: FRIEDAO Reviewed Notes: Nurses Notes, Adult Basic Education Instructor Notes, Medications, Allergies Allergies: Coded Allergies: NO KNOWN ALLERGIES (Unverified , 01/29/23) UNOBTAINABLE (Unverified , 01/31/24) SEVERLY SOB Home Meds Active Scripts Albuterol Sulfate (VENTOLIN MDI) 90 Mcg Ih, 90 MCG IN Q2HP PRN for 30 Days, #1 INH Prov:IVET QUINN MD 02/15/24 Umeclidinium [place] (Incruse Ellipta) 62.5 Mcg/Inh Inh, 62.5 MCG IN DAILY for 30 Days, #1 INHALER Prov:IVET QUINN MD 02/15/24 Carvedilol (COREG) 3.125 Mg Tab, 6.25 MG PO Q12HR for 30 Days, #120 TAB Prov:IVET QUINN MD 02/15/24 Atorvastatin Calcium (ATORVASTATIN CALCIUM) 20 Mg Tab, 40 MG PO HS for 30 Days, #60 TAB Prov:IVET QUINN MD 02/15/24 Aspirin (Aspirin Low Dose) 81 Mg Tab, 81 MG PO DAILY for 30 Days, #30 TAB Prov:IVET QUINN MD 02/15/24 Amiodarone HCl (Amiodarone HCl) 200 Mg Tab, 200 MG PO Q12HR for 30 Days, #60 TAB Prov:IVET QUINN MD 02/15/24 Information Source: Patient, Emergency Med Personnel Mode of Arrival: EMS Severity: Moderate Timing: Hours Duration: Since onset Prehospital treatment: 12 Lead EKG, Breathing Tx, Infrastructure Tech, C-Pap, Oxygen Past Medical History PAST MEDICAL HISTORY: Asthma, COPD, HTN, [place] (NSTEMI type 2) Past Medical History (Other): Acute hypoxic hypercapnic respiratory failure requiring intubation Pneumonia Surgical History: Denies all surgeries Surgical History (Other): Intubation and extubation Family History Family History: Unknown Social History Smoker: Non-Smoker Alcohol: Denies ETOH Use Drugs: Other Lives In: Home All Other Systems: Reviewed and Negative (Comprehensive systems reviewed and is negative unless otherwise stated in HPI) Physical Exam General Appearance: Severe Distress HEENT: Other (Pupils and face symmetric) Neck: Full Range of Motion, Normal Inspection Respiratory: Accessory Muscle Use, Decreased Breath Sounds, Respiratory Distress, Rhonchi, Wheezing Cardiovascular: No Edema, No JVD, Tachycardia Breast Exam: Deferred Gastrointestinal: Non Tender, Soft Genitalia: Deferred Pelvic: Deferred Rectal: Deferred Extremities: Normal inspection, Normal range of motion, Non-tender, No pedal edema Neurologic: Alert (Oriented x4), Normal Affect, Normal Mood, Other (Moves all extremities. No gross focal deficit.) Cerebellar Function: NOT DONE Reflexes: NOT DONE Skin: Dry, Normal Color, Warm Lymphatic: NOT DONE Was a procedure done? Was a procedure done?: No EKG EKG : Comments Sinus tach, rate 104, normal intervals, normal axis, normal QRS lateral T-wave inversion Differential Dx Considerations may include: COPD exacerbation, asthma exacerbation, bronchitis, pneumonia, CHF, pneumothorax, among others X-Ray, Labs, Meds, VS Vital Signs Date Time Temp Pulse Resp B/P (MAP) Pulse Ox O2 Delivery O2 Flow Rate FiO2 04/10/24 05:54 103 19 100 Bi-Pap+ 40 40 04/10/24 05:39 173/112 04/10/24 05:08 97.2 109 20 169/117 (134) 98 04/10/24 05:08 104 04/10/24 05:03 109 23 169/117 (134) 99 Lab Test 04/10/24 06:07 04/10/24 05:15 Range/Units Troponin I High Sensitivity Pending 34 </=54 ng/L White Blood Count 10.7 4.4-10.8 10^3/uL Red Blood Count 5.68 4.5-5.90 10^6/uL Hemoglobin 15.7 13.5-17.5 g/dL Hematocrit 49.7 41.0-53.0 % Mean Corpuscular Volume 87.4 80.0-100.0 fL Mean Corpuscular Hemoglobin 27.6 L 28.0-32.0 pg Mean Corpuscular Hemoglobin Concent 31.6 L 32.0-36.0 g/dL Red Cell Distribution Width 17.5 H 11.8-14.3 % Platelet Count 217 140-450 10^3/uL Mean Platelet Volume 8.8 6.9-10.8 fL Neutrophils (%) (Auto) 61.6 37.0-80.0 % Lymphocytes (%) (Auto) 23.4 10.0-50.0 % Monocytes (%) (Auto) 8.0 0.0-12.0 % Eosinophils (%) (Auto) 5.6 0.0-7.0 % Basophils (%) (Auto) 1.4 0.0-2.0 % Neutrophils # (Auto) 6.6 1.6-8.6 10 ^3/uL Lymphocytes # (Auto) 2.5 0.4-5.4 10 ^3/uL Monocytes # (Auto) 0.9 0-1.3 10 ^3/uL Eosinophils # (Auto) 0.6 0-0.8 10 ^3/uL Basophils # (Auto) 0.1 0-0.2 10 ^3/uL Nucleated Red Blood Cells 0.0 % Sodium Level 141 136-145 mmol/L Potassium Level 4.2 3.5-5.1 mmol/L Chloride Level 106 98-107 mmol/L Carbon Dioxide Level 30 20-31 mmol/L Anion Gap 5 5-15 Blood Urea Nitrogen 14 9-23 mg/dL Creatinine 0.71 0.700-1.30 mg/dL Glomerular Filtration Rate Calc 110 >90 mL/min BUN/Creatinine Ratio 19.7 10.0-20.0 Serum Glucose 102 74-106 mg/dL Calcium Level 9.7 8.7-10.4 mg/dL B-Type Natriuretic Peptide 67.79 0-100 pg/mL Current Medications Medications (Trade) Dose Ordered Sig/Compa Route Start Time Stop Time Status Last Admin Albuterol (Ventolin Medneb) 5 mg ONCE ONCE NEB 04/10/24 05:15 04/10/24 05:16 DC 04/10/24 05:24 Ipratropium [place] (Atrovent Medneb) 0.5 mg ONCE ONCE NEB 04/10/24 05:15 04/10/24 05:16 DC 04/10/24 05:24 Methylprednisolone Sodium Succinate (Solu Medrol) 125 mg ONCE ONCE IV 04/10/24 05:15 04/10/24 05:16 DC 04/10/24 05:16 Magnesium Sulfate/ Dextrose 100 ml @ 100 mls/hr Q1H IV 04/10/24 05:15 04/10/24 07:14 04/10/24 06:21 Hydralazine HCl (Apresoline Injection) 10 mg ONCE ONCE IV 04/10/24 05:45 04/10/24 05:46 DC 04/10/24 05:39 PROCEDURE(s): CXRP - CHEST PORTABLE REASON: sob ORDER NUMBER(s): [id number], ACCESSION NUMBER(s): [id number] EXAM: XR Chest, 1 View CLINICAL INDICATION: sob TECHNIQUE: Frontal view of the chest. COMPARISON: XY CHEST PORTABLE on DOS: 02/11/24, XY CHEST PORTABLE on DOS: 02/10/24, XY CHEST PORTABLE on DOS: 02/09/24, XY CHEST PORTABLE on DOS: 02/08/24, XY CHEST PORTABLE on DOS: 02/08/24 FINDINGS: LUNGS AND PLEURAL SPACES: Unremarkable. No consolidation. No pneumothorax. HEART: Unremarkable. No cardiomegaly. MEDIASTINUM: Unremarkable. Normal mediastinal contour. BONES/JOINTS: Unremarkable. No acute fracture. OTHER FINDINGS: . None. ... IMPRESSION: No acute cardiopulmonary process. X-Ray, Labs, Meds, VS Comment 54-year-old male with history of COPD/asthma, hypertension, prior respiratory failure requiring intubation, non STEMI type 2, prior pneumonia and polysubstance abuse brought in by EMS from home complaining of shortness of breath. Remarkable for heart rate 109, respiratory rate 23, BP 169/117 Exam remarkable for severe respiratory distress, accessory muscle use, wheezing/rhonchi and diminished breath sounds Rhythm strip independently interpreted by me: Sinus , rate 101, no ectopy. Chest x-ray unremarkable CBC, metabolic panel, BNP and 2 serial troponins unremarkable, ABG pending Patient treated with the following in the ED: Albuterol 5 mg/Atrovent 0.5 mg nebulized, Solu-Medrol 125 mg IV, magnesium 2 g IV, hydralazine 10 mg IV On re-evaluation, patient is shortness breath has improved on BiPAP. Oxygen saturation is 100% on BiPAP 40% O2. Plan is to admit the patient for respiratory support and pulmonology evaluation. Time of 1ST Reevaluation: 05:30 Reevaluation 1ST: Unchanged Patient Education/Counseling: Diagnosis, Treatment Family Education/Counseling: No Family Present Departure 1 Departure Time of Disposition: 06:42 Impression: Primary Impression: Acute on chronic respiratory failure Qualified Codes: J96.20 - Acute and chronic respiratory failure, unspecified whether with hypoxia or hypercapnia Additional Impression: COPD exacerbation Disposition: ADMITTED INPATIENT Admit to: [facility] Condition: Guarded Critical Care Note Critical Care Time?: Yes (45 min-critical care time only) Critical care comment: Critical Care time including multiple bedside re-evaluations, review of lab and imaging studies, and discussion of the case with the admitting provider. Patient is high risk for respiratory decompensation. Stability Stability form required: No Heart Score Heart Score: Heart Score Response (Comments) Value History N/A 0 EKG N/A 0 Age N/A 0 Risk Factors N/A 0 Troponin N/A 0 Total 0 I personally scribed for WOLF MELCHOR MD ([email or web address]) on 04/10/24 at 05:38. Electronically submitted by Javy Guerra ([email or web address]). WOLF MELCHOR MD Apr 10, 2024 05:38
[2024-04-10] MEDS: hydrALAZINE HCL 20 MG/ML VL IV ONE (05:39)
[2024-04-10 05:43] LABS: Chloride 106 mmol/L (98-107); Potassium 4.2 mmol/L (3.5-5.1); Sodium 141 mmol/L (136-145)
[2024-04-10 05:44] LABS: Anion Gap 5 (5-15); Calcium 9.7 mg/dL (8.7-10.4); Carbon Dioxide 30 mmol/L (20-31)
[2024-04-10 05:49] LABS: BUN/Creatinine Ratio 19.7 (10.0-20.0); Blood Urea Nitrogen 14 mg/dL (9-23); Glucose 102 mg/dL (74-106)
[2024-04-10 05:54] VITALS: PULSE 103; RESP 19; O2SAT 100
--- NOTE | 2024-04-10 05:59 | DVH ---
EXAM: XR Chest, 1 View CLINICAL INDICATION: sob TECHNIQUE: Frontal view of the chest. COMPARISON: XY CHEST PORTABLE on DOS: 02/11/24, XY CHEST PORTABLE on DOS: 02/10/24, XY CHEST PORTAB LE on DOS: 02/09/24, XY CHEST PORTABLE on DOS: 02/08/24, XY CHEST PORTABLE on DOS: 02/08/24 FINDINGS: LUNGS AND PLEURAL SPACES: Unremarkable. No consolidation. No pneumothorax. HEART: Unremarkable. No cardiomegaly. MEDIASTINUM: Unremarkable. Normal mediastinal contour. BONES/JOINTS: Unremarkable. No acute fracture. OTHER FINDINGS: . None. ... IMPRESSION: No acute cardiopulmonary process.
[2024-04-10 08:34] VITALS: BP 173/112; PULSE 103; RESP 23; TEMP 97.2; O2SAT 95
[2024-04-10] MEDS ORDERED: METO25TA93 PO (08:56)
[2024-04-10] MEDS ORDERED: ALBU108A5 IN (08:56)
[2024-04-10] MEDS ORDERED: FURO20TA4 PO (08:56)
[2024-04-10] MEDS ORDERED: LOSA-534 PO (08:56)
[2024-04-10] MEDS ORDERED: ALBUTEROL SULF HFA 90MCG INH 200DOSE IN PRN (09:00)
[2024-04-10] MEDS ORDERED: HYDROcodone-ACET 5/325MG TAB PO PRN (09:00)
[2024-04-10] MEDS ORDERED: DOCUSATE SOD 100 MG CAP PO PRN (09:00)
[2024-04-10] MEDS ORDERED: MORPHINE SULFATE INJ 2 MG/ml SYRG IV PRN (09:00)
[2024-04-10] MEDS ORDERED: ONDANSETRON HCL 4 MG/2 ML VIAL IV PRN (09:00)
[2024-04-10] MEDS ORDERED: NITROGLYCERIN 0.4 MG SL TAB SL PRN (09:00)
[2024-04-10] MEDS ORDERED: ACETAMINOPHEN 325 MG TAB PO PRN (09:00)
--- NOTE | 2024-04-10 09:08 | DVHHP2 ---
History of Present Illness Reason for Visit: Shortness of breath History of Present Illness Doris Farrell is a 54-year-old male with past medical history of hypertension, COPD, asthma, hyperlipidemia, and CVA x 2, who came in for shortness of breath. Patient states he woke up early this morning with severe shortness of breath. He states he tried using his inhaler and med-neb treatments with no improvements so he called EMS. Patient states he called EMS last Monday as well, but was able to feel better so denied going to the hospital. This morning his breathing was not improving, so he came to the ER. Patient states he continues to smoke, and use methamphetamines, last used yesterday. He does follo w up with cardiology and pulmonology regularly. 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) Past Surgical History: Hernia Repair, Other (Femur, bicep, hand) Smoke: <1 pack per day ALCOHOL: none Drugs: Other (Methamphetamines) Lives: Alone Domestic Violence: Neg Review of Systems Constitutional: No: Fever, Chills, Sweats, Weakness, Malaise, Other Eyes: No: Pain, Vision change, Conjunctivae inflammation, Eyelid inflammation, Other, Redness ENT: No: Ear pain, Ear discharge, Nose pain, Nose discharge, Nose congestion, Mouth pain, Mouth swelling, Throat pain, Throat swelling, Other Respiratory: Shortness of breath (at rest); No: Cough, Dry, SOB with excertion, Wheezing, Hemoptysis, Pleuritic Pain, Sputum, Wheezing, Other Cardiovascular: Palpitations; No: Chest Pain, Orthopnea, Paroxysmal Noc. Dy spnea, Edema, Lt Headedness, Other Gastrointestinal: No: Nausea, Vomiting, Abdominal Pain, Diarrhea, Constipation, Melena, Hematochezia, Other Genitourinary: No Dysuria, No Frequency, No Incontinence, No Hematuria, No Retention, No Other Musculoskeletal: No: other, neck pain, shoulder pain, arm pain, back pain, hand pain, leg pain, foot pain Skin: No: Rash, Lesions, Jaundice, Bruising, Other Neurological: No: Weakness, Numbness, Incoordination, Change in speech, Confusion, Seizures, Other Allergies: Coded Allergies: NO KNOWN ALLERGIES (Unverified , 01/29/23) UNOBTAINABLE (Unverified , 01/31/24) SEVERLY SOB Medications Current Medications Medications Dose Ordered Sig/Compa Route Start Time Stop Time Status Last Admin Dose Admin Sodium Chloride 10 ml Q8HR IV 04/10/24 14:00 UNV Acetaminophen/ Hydrocodone Bitart 1 tab Q4HP PRN PO 04/10/24 09:00 UNV Ondansetron HCl 4 mg Q4HP PRN IV 04/10/24 09:00 UNV Docusate Sodium 100 mg BIDPRN PRN PO 04/10/24 09:00 UNV Acetaminophen 650 mg Q6HP PRN PO 04/10/24 09:00 UNV Nitroglycerin 0.4 mg Q5MINP PRN SL 04/10/24 09:00 UNV Morphine Sulfate 2 mg Q30M PRN IV 04/10/24 09:00 UNV Ipratropium [place] 0.5 mg Q6HWA NEB 04/10/24 12:00 UNV Albuterol 2.5 mg Q6HWA NEB 04/10/24 12:00 UNV Methylprednisolone Sodium Succinate 40 mg BID IV 04/10/24 10:00 UNV Exam Vital Signs Vital Signs Date Time Temp Pulse Resp B/P (MAP) Pulse Ox O2 Delivery O2 Flow Rate FiO2 04/10/24 08:34 97.2 103 23 173/112 95 3.0 32 97.2 04/10/24 05:54 Bi-Pap+ General Appearance: Alert, Oriented X3, Cooperative, moderate distress HEENT: Atraumatic, PERRLA Respiratory: Other (Diminished breath sounds bilaterally) Cardiovascular: Normal S1, Normal S2, Other (tachycardia) Abdominal: Normal bowel sounds, Soft, No tenderness, No hepatospenomegaly Extremities: No clubbing, No cyanosis, No edema, Normal pulses, No tenderness/swelling Skin: No rashes, No breakdown, No significant lesion Neuro: Normal gait, Normal speech, Strength at 5/5 X4 ext Psych/Mental Status: Mental status NL, Mood NL Labs/Xrays Labs Test 04/10/24 06:07 04/10/24 05:15 Range/Units Troponin I High Sensitivity 37 </=54 ng/L White Blood Count 10.7 4.4-10.8 10^3/uL Red Blood Count 5.68 4.5-5.90 10^6/uL Hemoglobin 15.7 13.5-17.5 g/dL Hematocrit 49.7 41.0-53.0 % Mean Corpuscular Volume 87.4 80.0-100.0 fL Mean Corpuscular Hemoglobin 27.6 L 28.0-32.0 pg Mean Corpuscular Hemoglobin Concent 31.6 L 32.0-36.0 g/dL Red Cell Distribution Width 17.5 H 11.8-14.3 % Platelet Count 217 140-450 10^3/uL Mean Platelet Volume 8.8 6.9-10.8 fL Neutrophils (%) (Auto) 61.6 37.0-80.0 % Lymphocytes (%) (Auto) 23.4 10.0-50.0 % Monocytes (%) (Auto) 8.0 0.0-12.0 % Eosinophils (%) (Auto) 5.6 0.0-7.0 % Basophils (%) (Auto) 1.4 0.0-2.0 % Neutrophils # (Auto) 6.6 1.6-8.6 10 ^3/uL Lymphocytes # (Auto) 2.5 0.4-5.4 10 ^3/uL Monocytes # (Auto) 0.9 0-1.3 10 ^3/uL Eosinophils # (Auto) 0.6 0-0.8 10 ^3/uL Basophils # (Auto) 0.1 0-0.2 10 ^3/uL Nucleated Red Blood Cells 0.0 % Sodium Level 141 136-145 mmol/L Potassium Level 4.2 3.5-5.1 mmol/L Chloride Level 106 98-107 mmol/L Carbon Dioxide Level 30 20-31 mmol/L Anion Gap 5 5-15 Blood Urea Nitrogen 14 9-23 mg/dL Creatinine 0.71 0.700-1.30 mg/dL Glomerular Filtration Rate Calc 110 >90 mL/min BUN/Creatinine Ratio 19.7 10.0-20.0 Serum Glucose 102 74-106 mg/dL Calcium Level 9.7 8.7-10.4 mg/dL B-Type Natriuretic Peptide 67.79 0-100 pg/mL EXAM: XR Chest, 1 View FINDINGS: LUNGS AND PLEURAL SPACES: Unremarkable. No consolidation. No pneumothorax. HEART: Unremarkable. No cardiomegaly. MEDIASTINUM: Unremarkable. Normal mediastinal contour. BONES/JOINTS: Unremarkable. No acute fracture. OTHER FINDINGS: . None. ... IMPRESSION: No acute cardiopulmonary process. 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 Procedure Category Date Status Time Admit ADMIT 04/10/24 Transmitted 08:51 Code Status CODE 04/10/24 Transmitted 08:51 Sodium Chloride Lock PHA 04/10/24 Logged (Saline Lock Ns) 14:00 Hydrocodone-Acet PHA 04/10/24 Logged 5/325mg Tab ([place] 09:00 Ondansetron Hcl PHA 04/10/24 Logged (Zofran) 09:00 Docusate Sodium PHA 04/10/24 Logged Capsule (Colace 09:00 Complete Blood Count LAB 04/11/24 Verified 04:00 Comprehensive LAB 04/11/24 Verified Metabolic Panel 04:00 Cardiac DIET 04/10/24 Transmitted Diet-2gna,Lofat,Lochol Breakfast Condition: Critical SHIRA 04/10/24 In Process 08:51 Acetaminophen Tablet PHA 04/10/24 Logged (Tylenol Tablet) 09:00 Nitroglycerin PHA 04/10/24 Logged Sublingual (Ntrostat 09:00 Morphine Sulfate PHA 04/10/24 Logged Injection 09:00 Stat Ekg For Chest SHIRA 04/10/24 In Process Pain 08:51 Notify Of Changes [facility] 04/10/24 In Process From Base 08:51 Hand Filer Balance Wheel For [facility] 04/10/24 In Process 24 Hours 08:51 Emergency Dysrhythmia SHIRA 04/10/24 In Process Protocol 08:51 Rhythm Strips Once [facility] 04/10/24 In Process Every Shift 08:51 Oxygen By Nasal RT 04/10/24 Transmitted Cannula 08:51 Ipratropium Medneb PHA 04/10/24 Logged (Atrovent Medneb) 12:00 Albuterol Medneb PHA 04/10/24 Logged (Ventolin Medneb) 12:00 Methylprednisolone PHA 04/10/24 Logged Sod Succ (Solu Medrol 10:00 Drug Screen LAB 04/10/24 Logged 08:54 Albuterol Inhaler PHA 04/10/24 Verified (Ventolin Hfa) 09:00 Aspirin Enteric PHA 04/10/24 Verified Coated Tablet 10:00 Losartan Tablet PHA 04/10/24 Verified (Cozaar Tablet) 10:00 (Nf) Metoprolol PHA 04/10/24 Verified Succinate (Metoprolol 10:00 Date of Service: Apr 10, 2024 Billing Provider: DANIEL WETZEL Common Visit Codes: 95852-[id number] INP/OBS CARE (HIGH) DANIEL WETZEL Apr 10, 2024 09:08
[2024-04-10] MEDS ORDERED: ALBUTEROL SULF 2.5 MG/0.5ML(0.5%) NEB SOLN NEB PRN (10:00)
[2024-04-10] MEDS: METOPROLOL SUCCINATE XL 50 MG TAB PO SCH (10:13)
[2024-04-10] MEDS: methylPREDNISolone SOD SUCC 40 MG/ML VL IV SCH (10:13)
[2024-04-10] MEDS: LOSARTAN POTASSIUM 50 MG TAB PO SCH (10:14)
[2024-04-10] MEDS: ASPirin-EC 81 mg tab PO SCH (10:14)
[2024-04-10 10:26] LABS: Urine Bacteria None Seen /hpf (None Seen)
[2024-04-10 10:42] LABS: Urine Blood Negative /uL (Negative); Urine Clarity Clear (Clear); Urine Color Light-Yellow (Yellow); Urine Hyaline Cast FEW /lpf (0 - 2); Urine Protein, UAD 1+ (Negative); Urine Specific Gravity 1.014 (1.001-1.035); Urine Squamous Epithelial Cell None Seen /hpf (<5); Urine Urobilinogen Normal (Negative); Urine WBC 1 /HPF (0-3); Urine pH 6.5 (5.0-9.0)
[2024-04-10 11:05] LABS: Amphetamine Screen, Urine Pos (NEGATIVE); Barbiturate Scree,Urine Neg (NEGATIVE); Benzodiazephine Screen, Urine Neg (NEGATIVE); Cannabinoid Screen, Urine Neg (NEGATIVE); Cocaine Screen, Urine Neg (NEGATIVE); Opiate Scree,Urine Neg (NEGATIVE); Phencyclidine Screen, Urine Pos (NEGATIVE)
[2024-04-10 11:27] VITALS: PULSE 98; RESP 19; O2SAT 97
[2024-04-10] MEDS: IPRATROPIUM BROM 0.5 MG/2.5ML INH SOL NEB SCH (11:27)
[2024-04-10] MEDS: ALBUTEROL SULF 2.5 MG/0.5ML(0.5%) NEB SOLN NEB SCH (11:27)
[2024-04-10 11:35] VITALS: PULSE 102; RESP 22; O2SAT 99
[2024-04-10 12:00] VITALS: BP 179/103; PULSE 103; RESP 19; O2SAT 96
[2024-04-10] MEDS ORDERED: SODIUM CHLOR 0.9% PF (SALINE LOCK) 10ML VIAL/SYR IV SCH (14:00)
[2024-04-10] MEDS ORDERED: ATORVASTATIN 20 MG TAB PO SCH (22:00)
== END 2024-04-10 13:37 | disposition left against medical advice (07) | DRG 140 ==
LOC: EDBD 05:02 → ER 05:02 → OVERFLOW 08:51
PROVIDERS: ADMIT Nurse Practitioner Family; ATTEND Nurse Practitioner Family
PROC: 5A09357 Assistance with Respiratory Ventilation, Less than 24 Consecutive Hours, Continuous Positive Airway Pressure (ICD-10-PCS; principal; 2024-04-10)
DX: J44.1 Chronic obstructive pulmonary disease with (acute) exacerbation (principal); J96.20 Acute and chronic respiratory failure, unspecified whether with hypoxia or hypercapnia; I10 Essential (primary) hypertension; E78.5 Hyperlipidemia, unspecified; F19.90 Other psychoactive substance use, unspecified, uncomplicated; Z53.29 Procedure and treatment not carried out because of patient's decision for other reasons; F17.200 Nicotine dependence, unspecified, uncomplicated; Z79.899 Other long term (current) drug therapy; Z87.01 Personal history of pneumonia (recurrent); Z86.73 Personal history of transient ischemic attack (TIA), and cerebral infarction without residual deficits; I25.2 Old myocardial infarction
CPT/HCPCS: 36415; 71045; 80048; 80307; 81001; 83880; 84484; 85025; 93005; 94640; 94660; 96365; 96375; 96376; 99291; G0378

== ENCOUNTER 2024-05-30 07:38 | Emergency (ER) | payer MEDICAID ==
[~2024-05-30] VITALS: Ht 177.8 cm; Wt 100.0 kg
[~2024-05-30 07:38] MED LIST changes: +ALBU108A5 IN; -CARV-214 PO; +FURO20TA4 PO; +LOSA-534 PO; +METO25TA93 PO
[2024-05-30 07:39] VITALS: PULSE 0; RESP 0; O2SAT 0
[2024-05-30] MEDS ORDERED: DEXTROSE (50%) 50ML SYRG IV ONE (07:47)
--- NOTE | 2024-05-30 07:52 | ED.PDOC ---
CPR-HPI HPI Comments 54 y/o obese M, with a limited known history of COPD, is BIBA from home for c/o cardiac arrest, today. Per EMS report, patient's spouse called, initially, for patient endorsement of sudden onset of shortness of breath and generalized face tingling sensation, this morning, while out in his driveway, while preparing to get on his motorcycle. 5 minutes prior to EMS arrival on scene, then reported on patient collapsing in front of her. On scene, patient was noted to have been pulseless and apneic, with CPR being initiated by staff on scene. En route, patient received continuous, 1x shock, I/O to left tib fib, and 4x epinephrine rounds, with last epinephrine administration at 0737, in addition to being intubated wiht a 7.0 tube. Patient was reported to have remained asystole for entire duration, with 1x VFIB transition following shock prior to returning and remaining asystole until upon arrival at 0738. Care was resumed by ED staff, with CPR in progress. Further history cannot be obtained at time of initial contact, due to patient's condition and absence of further historians present. Time Seen by MD: 07:38 Primary Care Provider: FRED Reviewed Notes: Nurses Notes, Blanket Binder Notes, Medications, Allergies Allergies: Coded Allergies: NO KNOWN ALLERGIES (Unverified , 01/29/23) UNOBTAINABLE (Unverified , 01/31/24) SEVERLY SOB Home Meds Active Scripts Albuterol Sulfate (VENTOLIN MDI) 90 Mcg Ih, 90 MCG IN Q2HP PRN for 30 Days, #1 INH Prov:IVET QUINN MD 02/15/24 Umeclidinium [place] (Incruse Ellipta) 62.5 Mcg/Inh Inh, 62.5 MCG IN DAILY for 30 Days, #1 INHALER Prov:IVET QUINN MD 02/15/24 Atorvastatin Calcium (ATORVASTATIN CALCIUM) 20 Mg Tab, 40 MG PO HS for 30 Days, #60 TAB Prov:IVET QUINN MD 02/15/24 Aspirin (Aspirin Low Dose) 81 Mg Tab, 81 MG PO DAILY for 30 Days, #30 TAB Prov:IVET QUINN MD 02/15/24 Amiodarone HCl (Amiodarone HCl) 200 Mg Tab, 200 MG PO Q12HR for 30 Days, #60 TAB Prov:IVET QUINN MD 02/15/24 Reported Medications Albuterol Sulfate (Albuterol Sulfate Hfa) 108 Mcg/Act Aer, 1 PUFF IN TIDPRN PRN 04/10/24 Furosemide (Furosemide) 20 Mg Tab, 1 TAB PO DAILY 04/10/24 Losartan Potassium (Losartan Potassium) 50 Mg Tab, 1 TAB PO DAILY 04/10/24 Metoprolol Succinate (Metoprolol Succinate Er) 25 Mg Tab, 1 TAB PO DAILY 04/10/24 Information Source: Emergency Med Personnel Mode of Arrival: EMS Timing: Minutes Duration: Down time prior EMS: (5 minutes ), Total time prior hopital: (25-35 minutes) Onset: Witnessed, Other (standing ) Available Hx: Other (COPD) Inital rhythm: Asystole Treatment: CPR, Intubation (7.0), Defibrillation, Epinephrine (4x), Other (I/O left tib fib) Associated signs and symptoms: Other (shortness of breath, generalized facial tingling sensation ) Past Medical History PAST MEDICAL HISTORY: Asthma, COPD, CVA (2x), High Lipids, HTN, [place] Past Medical History (Other): acute on chronic respiratory failure Surgical History: Denies all surgeries Family History Family History: Unknown Social History Smoker: Cigarettes Alcohol: Denies ETOH Use Drugs: Other (illicit drug use ) Lives In: Home All Other Systems: Reviewed and Negative (Comprehensive systems review obtained and negative except for what is stated in the HPI.) Physical Exam General Appearance: Severe Distress HEENT: Other (Pupils fixed and dilated) Neck: NOT DONE Respiratory: Respiratory Distress, Other (Intubated) Cardiovascular: Other (No pulse) Breast Exam: Deferred Gastrointestinal: Distended Genitalia: Deferred Pelvic: Deferred Rectal: Deferred Extremities: No pedal edema Musculoskeletal : Apperance: Normal Neurologic: Other (Unconscious) Cerebellar Function: NOT DONE Reflexes: NOT DONE Skin: Pallor Peripheral Pulses: 0 Radial (R), 0 Radial (L) Lymphatic: NOT DONE Was a procedure done? Was a procedure done?: No Differential Dx CPR Differential Diagnosis: Cardiopulmonary arrest, Cardiogenic shock, Dysrhythmia, Electrolyte disorder, Heart Block, Myocardial Infarction, Pulmonary Embolus, Respiratory Failure X-Ray, Labs, Meds, VS Vital Signs Date Time Temp Pulse Resp B/P (MAP) Pulse Ox O2 Delivery O2 Flow Rate FiO2 05/30/24 11:29 0 05/30/24 08:06 98.9 0 10 0/0 (0) 0 98.9 05/30/24 07:39 98.9 0 12 0/0 (0) 0 98.9 05/30/24 07:39 0 0 0 Non-Rebreather 15 N/A Patient unconscious. CPR in progress. ACLS drugs use. Long downtime. Took a long time to bring the patient. Pupils fixed dilated on arrival. No pulse on arrival. Transfer CPR. Asystole. Spoke with team. Continued CPR medication. Waiting for family. Asystole. Unable to revive the patient. Pronounced. Waiting for family to informed. Time of : 749. Time of 1ST Reevaluation: 07:50 Reevaluation 1ST: Unchanged Patient Education/Counseling: Other (patient ) Family Education/Counseling: No Family Present Departure 1 Departure Time of Disposition: 08:23 Impression: Primary Impression: Cardiac arrest Disposition: 20 Condition: Other Critical Care Note Critical Care Time?: Yes (45 min-critical care time only) Heart Score Heart Score: Heart Score Response (Comments) Value History N/A 0 EKG N/A 0 Age N/A 0 Risk Factors N/A 0 Troponin N/A 0 Total 0 Stability Stability form required: No I personally scribed for BEBETO ALAS MD ([email or web address]) on 05/30/24 at 07:52. Electronically submitted by Javy Guerra ([email or web address]). I personally scribed for BEBETO ALAS MD ([email or web address]) on 05/30/24 at 08:16. Electronically submitted by Javy Guerra ([email or web address]). BEBETO ALAS MD May 30, 2024 07:52
[2024-05-30 08:06] VITALS: BP 0/0; PULSE 0; RESP 10; TEMP 98.9; O2SAT 0
--- NOTE | 2024-05-30 11:29 | RESUS ---
CODE [place] ASSESSSMENT History of Events History of Events: SECURED CODE [place] ARRIVED WITH EMS AT 0738 AFTER 4 EPINEPHRINES GIVEN AND 1 SHOCK FOR VFIB AFTER PATIENT COLLAPSED IN DRIVEWAY. ARRIVED INTUBATED WITH ETT AT 7.0 AND 25 AT LIP AND WITH I/O TO LEFT TIBIA. Initial Information Date: May 30, 2024 Time: 07:38 Location of Arrest: ER Arrest Witnessed: Yes CPR started by whom: EMS (UPON EMS ARRIVAL PATIENT WAS APNEIC AND IN ASYSTOLE) Pre-Hospital Care: ACLS Type of arrest: Cardiac, Adult, Witnessed Spontaneous Respirations: Yes Pulse Present: No Monitoring: ECG, Pulse Oximetry, Capnography Crash Cart Opened and Supplies: Yes Airway Ventilation Breathing at Onset: Apneic Artificial Ventilation: Bag/Endo tube Intubation Size: 7.0 cuffed Intubated by: EMS PRIOR TO ARRIVAL TO ER Intubated orally: Yes Tube secured at: 25 Confirmation: Auscultation, Exhaled CO2 Circulation Circulation #1: Time: 07:40 Pulse Rate (adult): 0 Blood Pressure Systolic: 0 Blood Pressure Diastolic: 0 Temperature (Fahrenheit): 98.9 Circulation Comment: [place]YSTOLE, TEMP RECTAL Circulation #2: Time: 07:42 Pulse Rate (adult): 0 Blood Pressure Systolic: 0 Blood Pressure Diastolic: 0 Circulation Comment: [place] Circulation #3: Time: 07:44 Pulse Rate (adult): 0 Blood Pressure Systolic: 0 Blood Pressure Diastolic: 0 Circulation Comment: [place] Circulation #4: Time: 07:46 Pulse Rate (adult): 0 Blood Pressure Systolic: 0 Blood Pressure Diastolic: 0 Circulation Comment: PEA Circulation #5: Time: 07:48 Pulse Rate (adult): 0 Blood Pressure Systolic: 0 Blood Pressure Diastolic: 0 Circulation Comment: PEA Defibrillation Defbrillation : Time Defibrillator Applied: 07:39 Compressions: Manual Procedure - IV Procedure - IV : IV start time: 07:48 IV Side: Right IV Location: Hand IV Catheter Type: Peripheral IV IV Placed: RN IV Gauge: 18 IV Line Care: Saline Flush Medications & Response Medications and Responses #1: Medication Time: 07:41 ADULT Medications Given ADULT: Epinephrine 1 mg, Sodium Bacarbinate 50 meq, D50 (amp) Route of Administration: IO Medications and Responses #2: Medication Time: 07:43 ADULT Medications Given ADULT: Sodium Bacarbinate 50 meq Route of Administration: IO Medications and Responses #3: Medication Time: 07:44 ADULT Medications Given ADULT: Epinephrine 1 mg Route of Administration: IO Medications and Responses #4: Medication Time: 07:47 ADULT Medications Given ADULT: Epinephrine 1 mg Route of Administration: IO Nurses Notes [place] Coma Scale Eye Opening: None (1) [place] Coma Scale Verbal: None (1) [place] Coma Scale Motor: None (1) Pupil Reaction: Non Reactive Bedside Blood Glucose: 62 EKG Rhythm: Asystole Time Code Ended Time Code Ended: 07:50 Post Arrest Status: Outcome of code: Unsuccessful Patient pronounced by: DR ALAS Time patient pronounced: 07:50 Family notified: Yes Code Team Present: MARIAN PRINCE DRAFTING INSTRUCTOR DIRECTOR, [place] RN, JULIO HEATH CHARGE, SANT[place] HEATHSHEET METAL TECHNICIAN, ADWOA MALDONADO RT, MYRA RT, MIRI NURSE RECREATION THERAPIST Santiago Tatum May 30, 2024 11:29
== END 2024-05-30 07:50 ==
LOC: EDBD 07:38 → ER 07:46
DX: I46.9 Cardiac arrest, cause unspecified (principal); J44.9 Chronic obstructive pulmonary disease, unspecified; I10 Essential (primary) hypertension; E78.5 Hyperlipidemia, unspecified; I21.9 Acute myocardial infarction, unspecified; F17.210 Nicotine dependence, cigarettes, uncomplicated; E66.9 Obesity, unspecified; Z86.73 Personal history of transient ischemic attack (TIA), and cerebral infarction without residual deficits; Z79.82 Long term (current) use of aspirin; Z79.899 Other long term (current) drug therapy
CPT/HCPCS: 82947; 92950; 99285; J7042